=== PATIENT | female | born 1985 | race Caucasian/White ===

== ENCOUNTER 2020-09-02 12:47 | Emergency (ER) | payer MEDICAID, SELFPAY ==
[2020-09-02 14:05] VITALS: BP 136/100; PULSE 104; RESP 18; TEMP 37; O2SAT 97; BMI 26.6
[2020-09-02 15:47] LABS: Appearance Urine HAZY; Color Urine YELLOW; Glucose Urine UA NEG (NEG); Leukocyte Esterase Urine NEG (NEG); Nitrite Urine NEG (NEG); Urine Blood NEG (NEG); Urine Ketones 5 MG/DL (NEG); Urine Protein NEG (NEG-TRACE)
[2020-09-02 16:19] VITALS: BP 148/97; PULSE 88; RESP 18; TEMP 37.2; O2SAT 97
[2020-09-02 16:37] LABS: MANUAL DIFF FLAG NO
[2020-09-02 16:38] LABS: Basophils Percent Auto 0.4 % (0-2); Eosinophils Absolute Auto 0.2 X10*3/uL (0.0-0.4); Eosinophils Percent Auto 3.5 % (0-4); Hematocrit 35.5 % (37-47); Hemoglobin 11.6 g/dl (12.0-16.0); Imm Gran Abs Auto 0.01 X10*3/uL (0.00-0.03); Imm Gran Pct Auto 0.1 % (0.0-0.4); Lymphocytes Absolute Auto 1.3 X10*3/uL (1.2-4.9); Lymphocytes Percent Auto 18.2 % (20-40); Mean Corpuscular HGB Conc 32.7 g/dl (31.0-35.0); Mean Corpuscular Hemoglobin 29.3 pg (27.0-33.0); Mean Corpuscular Volume 89.6 fL (80-98); Mean Platelet Volume 10.6 fL (9.4-12.3); Monocytes Absolute Auto 0.7 X10*3/uL (0.1-1.2); Monocytes Percent Auto 10.2 % (2-11); Neutrophils Absolute Auto 4.7 X10*3/uL (2.0-8.3); Neutrophils Percent Auto 67.6 % (45-73); Platelet Count 167 X10*3/uL (160-400); Red Blood Count 3.96 X10*6/uL (4.20-5.50); Red Cell Distribution Width 14.2 % (11.0-16.0); White Blood Count 6.9 X10*3/uL (4.8-10.8)
--- NOTE | 2020-09-02 16:39 | ED_ITS ---
HPI - Abdominal Pain General Chief Complaint: Abdominal Pain Stated Complaint: abd pain, headache, hot flashes Time Seen by Provider: 09/02/20 14:12 Source: patient Mode of arrival: ambulatory Limitations: no limitations History of Present Illness HPI narrative: 34-year-old female who presents emergency department for evaluation abdominal pain, pelvic pain and a lump in her left axilla. The patient states that she has been experiencing abdominal pain in her mid epigastric area for approximately 6 months. She states that the pain usually comes on 2-3 days before her menses. She states that the pain is a constant, ?hard ball ?that is 10/10. The pain will last 2-3 days and then often resolves when she gets her menstrual period. She states that her menstrual periods are painful but manageable with medications. She states that the pain is associated with nausea, hot and cold sweats. She last had this discomfort 2 days prior but has not had her menstrual period yet. She is also complaining of a suprapubic pain which she states has been there for approximately 1 year. The pain is intermittent and is mild to moderate intensity. She denied any frequency, urgency or dysuria. She states that she has had this pain constantly over the past week. She states that she was having intercourse with her boyfriend when her boyfriend noted ?something funny ?in her vagina. The patient states she then removed a retained tampon that was probably therefore 2 weeks. Patient also states that she has noticed a hard lump her left axilla that has been there for 1 day. The lump is not painful. She has not noted any breast lumps. She states that there is a family history of early breast cancer. Related Data Previous Rx's Medication Instructions Recorded doxycycline hyclate 100 mg PO Q12H 10 Days #20 tab 09/02/20 metronidazole [Flagyl] 500 mg PO BID 10 Days #20 tab 09/02/20 omeprazole 20 mg PO DAILY #30 tab 09/02/20 Allergies Allergy/AdvReac Type Severity Reaction Status Date / Time No Known Allergies Allergy Verified 09/02/20 14:05 [No Known Allergies*] Review of Systems Review of Systems Yes all other systems are reviewed and are negative Physical Exam Vital Signs: Vital Signs: Last Vital Signs Temp 98.9 F 09/02/20 16:19 Pulse 99 09/02/20 17:41 Resp 17 09/02/20 17:41 BP 136/97 H 09/02/20 17:41 Pulse Ox 98 09/02/20 17:41 Body Mass Index 26.6 Const: General: cooperative and healthy appearing Orientation/consciousness: oriented to person and oriented to place Limitations: no limitations HENMT: Head: Yes normal to inspection, Yes normocephalic and Yes atraumatic Ears: external ears normal General nose exam: Normal external nose present Face and sinus: Yes normal facial exam Mouth: Normal oral and palatal mucosa present Throat: Yes posterior oropharynx normal Eyes: Periorbital: periorbital findings normal Eyelids: Yes eyelids normal Conjunctivae: conjunctivae normal Sclerae: sclerae normal Corneas: corneas normal Pupils: Equal, round and reactive pupils present Direct Ophthalmoscopy: normal light reflex Neck: Neck: Yes full ROM, Yes no lymphadenopathy, Yes no meningeal signs, Yes trachea midline and Yes supple Chest: Chest palpation & inspection: normal inspection of the chest and normal palpation of entire chest wall Breast/axilla inspection: normal inspection of the breasts and normal inspection of the axillae Breast/axilla palpation: normal palpation of the breasts and abnormal palpation of the axilla (One, small, hard mass, lateral axilla) Resp: Effort & Inspection: normal respiratory effort and able to speak in complete sentences Auscultation: clear to auscultation bilaterally Cardio: Rate: regular rate Rhythm: regular rhythm Heart sounds: S1 normal heart sound present, S2 normal heart sound present and no murmurs GI: Inspection: Yes normal to inspection Palpation (GI): Soft to palpation, Tenderness to palpation present (GI) in the epigastrum (Moderate tenderness) and suprapubicly (Moderate tenderness), no guarding, not rigid and No hepatosplenomegaly present : General: Yes no CVA tenderness Back/Spine/Pelvis: Back: no CVA tenderness Cervical Spine: normal cervical lordosis Thoracic/Lumbar Spine: thoracic and lumbar spine normal to inspection Skin: Lesions: no lesions Rashes: no rashes Wounds: no wounds Neuro: General: oriented to person, oriented to place and no meningeal signs Cranial nerves: Yes CN's II-XII intact bilaterally and Yes Equal, round and reactive pupils present Cognition (Neuro): normal cognition Motor exam (neuro): 5/5 motor strength present throughout Extrem: General: Yes normal to inspection and Yes full ROM Psych: Appearance: well kempt Mental Status: mental status grossly normal Speech and movement: Normal speech and movement present Affect: normal affect Attitude: cooperative Thought process: Normal thought process present Thought content: Normal thought content present Course Course Course Narrative: 34-year-old female who presents emergency department with 2 separate abdominal complaint and a left axillary mass. Vital signs were normal except for slightly elevated blood pressure of 136/100. The patient's physical examination revealed the mid epigastric and suprapubic pain. Breast exam revealed no palpable lesions on my exam, she does have 1 small hard axillary lesion. Pelvic exam did not reveal a significant cervical discharge however she did have significant cervical motion tenderness and tenderness with palpation over her uterus. I will obtain a laboratory evaluation on the patient. The patient's suprapubic pain pain is consistent with PID and will be treated with ceftriaxone 500 mg IM, doxycycline 100 mg twice a day times 10 days and Flagyl 500 mg twice a day for 10 days. The patient will need to follow-up with her CLINICAL HAEMATOLOGIST and that time she can have a repeat breast exam and axillary exam to determine if she needs an outpatient mammogram. 1845: The patient's laboratory evaluation revealed mild normal septic anemia with an H&H of 11.6 and 35.5. Patient has a slight elevation in her AST and ALT of 7156. Urinalysis and urine test were negative. The patient's epigastric pain is most likely gastritis but endometriosis sees be considered. I will treat her with Prilosec to see if this improves her pain. Patient was advised to follow-up with a juice packaging machines setter within 7-10 days for re-evaluation. MDM - Abdominal Pain Lab Data Result diagrams: 09/02/20 16:31 09/02/20 16:31 Labs: Lab Results 09/02/20 09/02/20 09/02/20 Range/Units 15:27 16:31 16:31 WBC 6.9 (4.8-10.8) X10*3/uL RBC 3.96 L (4.20-5.50) X10*6/uL Hgb 11.6 L (12.0-16.0) g/dl Hct 35.5 L (37-47) % MCV 89.6 (80-98) fL MCH 29.3 (27.0-33.0) pg MCHC 32.7 (31.0-35.0) g/dl RDW 14.2 (11.0-16.0) % Plt Count 167 (160-400) X10*3/uL MPV 10.6 (9.4-12.3) fL Immature Gran % (Auto) 0.1 (0.0-0.4) % Neut % (Auto) 67.6 (45-73) % Lymph % (Auto) 18.2 L (20-40) % [place] % (Auto) 10.2 (2-11) % Eos % (Auto) 3.5 (0-4) % Baso % (Auto) 0.4 (0-2) % Lymph # (Auto) 1.3 (1.2-4.9) X10*3/uL [place] # (Auto) 0.7 (0.1-1.2) X10*3/uL Eos # (Auto) 0.2 (0.0-0.4) X10*3/uL Baso # (Auto) 0.0 (0.0-0.2) X10*3/uL Abs Immat Gran (auto) 0.01 (0.00-0.03) X10*3/uL Absolute Neuts (auto) 4.7 (2.0-8.3) X10*3/uL Absolute Nucleated RBC 0.000 (0.0-0.012) X10*3/uL Nucleated RBC % (auto) 0.0 (0.0-0.2) /100WBC Hold Blue Top SEE NOTE Sodium (135-145) mmol/L Potassium (3.3-5.1) mmol/L Chloride (96-108) mmol/L Carbon Dioxide (22-29) mmol/L Anion Gap (12-20) BUN (9-16) mg/dL Creatinine (0.5-1.4) mg/dL Estim Creat Clear Calc Estimated GFR Random Glucose (60-115) mg/dL Calcium (8.4-10.2) mg/dL Total Bilirubin (0.0-1.0) mg/dL AST (5-31) U/L ALT (0-31) U/L Alkaline Phosphatase (39-117) U/L Total Protein (6.5-8.0) g/dL Albumin (3.5-5.0) g/dL Lipase (8-78) U/L Urine Color YELLOW Urine Appearance HAZY Urine pH 6.0 (5.0-8.0) Ur Specific [place] 1.020 (1.005-1.025) Urine Protein NEG (NEG-TRACE) MG/DL Urine Glucose (UA) NEG (NEG) MG/DL Urine Ketones 5 (NEG) MG/DL Urine Blood NEG (NEG) Urine Nitrite NEG (NEG) Ur Leukocyte Esterase NEG (NEG) Urine Test (NEGATIVE) 09/02/20 09/02/20 09/02/20 Range/Units 16:31 16:31 16:54 WBC (4.8-10.8) X10*3/uL RBC (4.20-5.50) X10*6/uL Hgb (12.0-16.0) g/dl Hct (37-47) % MCV (80-98) fL MCH (27.0-33.0) pg MCHC (31.0-35.0) g/dl RDW (11.0-16.0) % Plt Count (160-400) X10*3/uL MPV (9.4-12.3) fL Immature Gran % (Auto) (0.0-0.4) % Neut % (Auto) (45-73) % Lymph % (Auto) (20-40) % [place] % (Auto) (2-11) % Eos % (Auto) (0-4) % Baso % (Auto) (0-2) % Lymph # (Auto) (1.2-4.9) X10*3/uL [place] # (Auto) (0.1-1.2) X10*3/uL Eos # (Auto) (0.0-0.4) X10*3/uL Baso # (Auto) (0.0-0.2) X10*3/uL Abs Immat Gran (auto) (0.00-0.03) X10*3/uL Absolute Neuts (auto) (2.0-8.3) X10*3/uL Absolute Nucleated RBC (0.0-0.012) X10*3/uL Nucleated RBC % (auto) (0.0-0.2) /100WBC Hold Blue Top Sodium 139 (135-145) mmol/L Potassium 4.3 (3.3-5.1) mmol/L Chloride 102 (96-108) mmol/L Carbon Dioxide 27 (22-29) mmol/L Anion Gap 14 (12-20) BUN 5 L (9-16) mg/dL Creatinine 0.66 (0.5-1.4) mg/dL Estim Creat Clear Calc 130.3 Estimated GFR > 60 Random Glucose 97 (60-115) mg/dL Calcium 9.6 (8.4-10.2) mg/dL Total Bilirubin 0.4 (0.0-1.0) mg/dL AST 71 H (5-31) U/L ALT 56 H (0-31) U/L Alkaline Phosphatase 59 (39-117) U/L Total Protein 7.7 (6.5-8.0) g/dL Albumin 4.3 (3.5-5.0) g/dL Lipase 83 H (8-78) U/L Urine Color Urine Appearance Urine pH (5.0-8.0) Ur Specific [place] (1.005-1.025) Urine Protein (NEG-TRACE) MG/DL Urine Glucose (UA) (NEG) MG/DL Urine Ketones (NEG) MG/DL Urine Blood (NEG) Urine Nitrite (NEG) Ur Leukocyte Esterase (NEG) Urine Test NEGATIVE (NEGATIVE) Discharge Plan Discharge Clinical Impression: Acute pelvic inflammatory disease, Mass of left axilla Gastritis Qualifiers: Gastritis type: unspecified gastritis Chronicity: acute Gastritis bleeding: without bleeding Qualified Code(s): K29.00 - Acute gastritis without bleeding Patient Disposition: Home, Self-Care Instructions: Endometriosis (ED), Pelvic Inflammatory Disease (ED), Gastritis (ED) Additional Instructions: At this time, I believe that the lower abdominal pain that you are experiencing is caused by pelvic inflammatory disease. You were tested for gonorrhea, chlamydia, bacterial vaginosis and Trichomonas. You will need to follow-up with your juice packaging machines setter to get these test results. Your being treated for PID which would treat all of the above infections as well. You received ceftriaxone 500 mg IM. Take doxycycline 100 mg twice a day for 10 days. Take Flagyl (metronidazole) 500 mg twice a day for 10 days. At this time, I believe that the pain in her upper abdomen is caused by gastritis. Take Prilosec 20 mg, once a day for 30 days to treat gastritis. Since the pain in her upper abdomen is related to your menstrual periods, it is possible that you have endometriosis. You should discuss this with your juice packaging machines setter. Also, you have a very small mass in your left arm, you should discuss this with your juice packaging machines setter to see if her juice packaging machines setter thinks that you need a mammogram to be evaluated for breast cancer. Follow-up with your juice packaging machines setter in 7-10 days Please return to the emergency department if your symptoms get worse or if you develop any symptoms that are concerning to you. Prescriptions: New metronidazole [Flagyl] 500 mg tablet 500 mg PO BID 10 Days Qty: 20 RF: 0 doxycycline hyclate 100 mg tablet 100 mg PO Q12H 10 Days Qty: 20 RF: 0 omeprazole 20 mg tablet,delayed release (DR/EC) 20 mg PO DAILY Qty: 30 RF: 0 PMFSH Past Medical History PMFSH Narrative: Past medical history: Patient has a history of eczema. Past surgical history: Patient had a cholecystectomy in 2003. Social history: Patient states that she does smoke cigarettes occasionally but she does vape on a regular basis. She occasionally drinks alcohol, she last drank 2 beers 3 days prior. She states she smokes marijuana 2 to 3 times a week to help with her appetite. Social History Social History Alcohol intake: current Alcohol intake frequency: a few times a month Patient Tobacco Use Status: Current everyday Tobacco user Use of substances other than those prescribed or required for medical reasons: No Advance Directives: No Advance Directives Information Provided: Yes
--- NOTE | 2020-09-02 16:52 | PC.NURSE ---
THIS PCT SET UP AND ASSIST DR CHIN WITH PATIENT PELVIC EXAM AND BREAST EXAM .
[2020-09-02 17:09] LABS: Alanine Aminotransferase 56 U/L (0-31); Albumin Level 4.3 g/dL (3.5-5.0); Alkaline Phosphatase 59 U/L (39-117); Anion Gap 14 (12-20); Aspartate Amino Transferase 71 U/L (5-31); Bilirubin Total 0.4 mg/dL (0.0-1.0); Blood Urea Nitrogen 5 mg/dL (9-16); Calcium 9.6 mg/dL (8.4-10.2); Carbon Dioxide 27 mmol/L (22-29); Chloride 102 mmol/L (96-108); Creatinine Clr Calc Pharmacy 130.3; Estimated Glomerular Filt Rate > 60; Glucose Random 97 mg/dL (60-115); Potassium 4.3 mmol/L (3.3-5.1); Sodium 139 mmol/L (135-145); Total Protein 7.7 g/dL (6.5-8.0)
[2020-09-02 17:11] LABS: UPreg QC Valid YES; Urine Pregnancy NEGATIVE (NEGATIVE)
[2020-09-02 17:27] LABS: Lipase 83 U/L (8-78)
[2020-09-02 17:41] VITALS: BP 136/97; PULSE 99; RESP 17; O2SAT 98
[2020-09-02] MEDS: cefTRIAXone sodium 500 MG, Lidocaine HCl 1 % MPF 1 ML IM (18:53)
[2020-09-03 08:41] LABS: BV Int Neg Control Negative (Negative); BV Int Pos Control Positive (Positive)
[2020-09-03 09:02] LABS: CT PCR NOT DETECTED (Not Detect.); NG PCR NOT DETECTED (Not Detect.)
== END 2020-09-02 19:05 | disposition home or self-care (01) ==
PROVIDERS: Emergency Provider Emergency Medicine Emergency Medical Services
DX: N73.0 Acute parametritis and pelvic cellulitis (principal); R22.32 Localized swelling, mass and lump, left upper limb; R10.2 Pelvic and perineal pain; R10.13 Epigastric pain; F17.200 Nicotine dependence, unspecified, uncomplicated; Z71.6 Tobacco abuse counseling; Z79.899 Other long term (current) drug therapy
CPT/HCPCS: 36415; 80053; 81003; 81025; 83690; 85025; 87480; 87491; 87510; 87591; 87660; 96372; 99284; J0696

== ENCOUNTER 2020-10-08 09:09 | Emergency (ER) | payer MEDICAID, SELFPAY ==
--- NOTE | ~2020-10-08 | CT_ITS ---
EXAMINATION: CT ABDOMEN AND PELVIS WITH CONTRAST CLINICAL INFORMATION: Lower abdominal pain. Rectal bleeding. COMPARISON: None TECHNIQUE: Multidetector volumetric images were obtained from the superior aspect of the liver through the pubic symphysis following administration 85 mL of Omnipaque 350 intravenous contrast. Sagittal and coronal reformatted images were obtained on the technologist's workstation. Oral contrast: Yes This CT examination was performed using dose optimization techniques as appropriate, variously including the following: *Automated exposure control *Adjustment of mA and/or kV according to patient size (this includes techniques or standardized protocols for targeted exams where dose is matched to indication/reason for exam; i.e. extremities or head) *Use of iterative reconstruction technique DLP: 594 mGy-cm FINDINGS: LUNG BASES: The visualized lung bases are unremarkable. LIVER, GALLBLADDER, AND BILIARY TREE: The liver is low in attenuation suggestive of fatty infiltration. The gallbladder has been removed. There is no biliary duct dilatation. PANCREAS: Unremarkable. SPLEEN: Unremarkable. ADRENAL GLANDS: Unremarkable. KIDNEYS AND URETERS: There are small bilateral nonobstructing renal stones. BLADDER: Not optimally distended. GASTROINTESTINAL TRACT: There is wall thickening of the colon suggestive of pancolitis. There are prominent adjacent vessels or vasa recta. There is also wall thickening of the terminal ileum. No evidence of obstruction, perforation or abscess is seen. The appendix is normal. The stomach is normal. There is trace ascites in the pelvis. ABDOMINAL WALL: No significant hernia is appreciated. LYMPH NODES: Normal. VASCULAR: Unremarkable. PELVIC VISCERA: Unremarkable. OSSEOUS STRUCTURES: Unremarkable. CT/CT abdomen pelvis w con IMPRESSION: Pancolitis and ileitis of the terminal ileum. Prominent vasa recta. Inflammatory bowel disease should be considered. Small bilateral nonobstructing renal stones. Fatty liver.
[2020-10-08 09:19] VITALS: BP 146/88; PULSE 117; RESP 20; TEMP 36.8; O2SAT 100; BMI 25.8
[2020-10-08] MEDS: 0.9 % Sodium Chloride 1,000 ML 999 ML IV (09:43)
[2020-10-08 09:51] LABS: Basophils Absolute Auto 0.1 X10*3/uL (0.0-0.2); Basophils Percent Auto 0.5 % (0-2); Eosinophils Absolute Auto 0.1 X10*3/uL (0.0-0.4); Eosinophils Percent Auto 0.5 % (0-4); Hematocrit 37.7 % (37-47); Hemoglobin 12.5 g/dl (12.0-16.0); Imm Gran Abs Auto 0.04 X10*3/uL (0.00-0.03); Imm Gran Pct Auto 0.4 % (0.0-0.4); Lymphocytes Percent Auto 9.8 % (20-40); MANUAL DIFF FLAG SCAN; Mean Corpuscular HGB Conc 33.2 g/dl (31.0-35.0); Mean Corpuscular Hemoglobin 29.1 pg (27.0-33.0); Mean Corpuscular Volume 87.7 fL (80-98); Mean Platelet Volume 10.6 fL (9.4-12.3); Monocytes Percent Auto 18.9 % (2-11); Neutrophils Absolute Auto 7.2 X10*3/uL (2.0-8.3); Neutrophils Percent Auto 69.9 % (45-73); Platelet Count 318 X10*3/uL (160-400); Red Cell Distribution Width 13.5 % (11.0-16.0); SCAN SMEAR FLAG 1; White Blood Count 10.3 X10*3/uL (4.8-10.8)
[2020-10-08] MEDS: ondansetron HCL 4 MG/2 ML VIAL IVPUSH (09:51)
[2020-10-08] MEDS: Famotidine/PF 20 MG/2 ML VIAL IVPUSH (09:51)
[2020-10-08 09:52] LABS: OBS Int Ctl Valid YES; OBS1 POSITIVE (NEGATIVE)
--- NOTE | 2020-10-08 09:57 | ED.ABDPAIN ---
HPI - Abdominal Pain General Chief Complaint: Abdominal Pain <JANUARY Luther Last Filed: 10/08/20 14:58> Stated Complaint: abd pain <JANUARY Luther Last Filed: 10/08/20 14:58> Time Seen by Provider: 10/08/20 09:19 <JANUARY Luther Last Filed: 10/08/20 14:58> Source: patient <JANUARY Luther Last Filed: 10/08/20 14:58> Mode of arrival: ambulatory <JANUARY Luther Last Filed: 10/08/20 14:58> Limitations: no limitations <JANUARY Luther Last Filed: 10/08/20 14:58> History of Present Illness HPI narrative: Patient presents to ED for lower abdominal pain and rectal bleeding for the past 2 days. Patient states Aurea is brown with bright red blood and sometimes blood clot. Patient states also nausea and vomiting. Patient states no fever or chills. Patient denies any recent trauma to the abdomen. Patient denies any history of any GI issues. Patient states he is having once before in the past but she never followed up. <JANUARY Luther Last Filed: 10/08/20 14:58> Related Data Home Medications: Previous Rx's Medication Instructions Recorded omeprazole 20 mg tablet,delayed 20 mg PO DAILY #30 tab 09/02/20 release ondansetron HCl 4 mg tablet 4 mg PO Q6H PRN 3 Days #12 tab 10/08/20 (Zofran) bisacodyl 5 mg tablet,delayed 10 mg PO ONCE 1 Days #2 tab 10/21/20 release (Dulcolax (bisacodyl)) pantoprazole 20 mg tablet,delayed 20 mg PO QAM #30 tab 10/21/20 release polyethylene glycol 3350 17 238 g PO ONCE 1 Days #238 g 10/21/20 gram/dose oral powder (Miralax) doxycycline monohydrate 100 mg 100 mg PO BID #10 tab 10/30/20 tablet <JANUARY Luther Last Filed: 10/08/20 14:58> Allergies/Adverse Reactions: Allergies Allergy/AdvReac Type Severity Reaction Status Date / Time No Known Allergies Allergy Verified 10/30/20 17:23 [No Known Allergies*] <JANUARY Luther Last Filed: 10/08/20 14:58> Review of Systems Review of Systems Yes all other systems are reviewed and are negative <JANUARY Luther Last Filed: 10/08/20 14:58> Constitutional: Reports as per HPI and Reports no additional constitutional complaints <JANUARY Luther Last Filed: 10/08/20 14:58> Eyes: Reports as per HPI and Reports no additional eye complaints <JANUARY Luther Last Filed: 10/08/20 14:58> Reports system reviewed and no additional complaints, except as documented and Reports as per HPI <JANUARY Luther Last Filed: 10/08/20 14:58> Cardiovascular: Reports as per HPI and Reports no additional cardiovascular complaints <JANUARY Luther Last Filed: 10/08/20 14:58> Respiratory: Reports as per HPI and Reports no additional respiratory complaints <JANUARY Luther Last Filed: 10/08/20 14:58> Gastrointestinal: Reports as per HPI, Reports no additional gastrointestinal complaints, Reports abdominal pain (lower abdominal pain), Reports hematochezia and Reports GI cramping <JANUARY Luther Last Filed: 10/08/20 14:58> Musculoskeletal: Reports no additional musculoskeletal complaints and Reports as per HPI <JANUARY Luther Last Filed: 10/08/20 14:58> Reports system reviewed and no additional complaints, except as documented and Reports as per HPI <JANUARY Luther Last Filed: 10/08/20 14:58> Psychiatric: Reports no additional psychiatric complaints and Reports as per HPI <JANUARY Luther Last Filed: 10/08/20 14:58> Physical Exam Vital Signs: Vital Signs: Last Vital Signs Temp 98.3 F 10/08/20 09:19 Pulse 99 10/08/20 15:12 Resp 16 10/08/20 15:12 BP 131/86 10/08/20 15:12 Pulse Ox 95 10/08/20 12:15 Body Mass Index 25.8 <JANUARY Luther Last Filed: 10/08/20 14:58> Vital Signs: Last Vital Signs Temp 98.3 F 10/08/20 09:19 Pulse 99 10/08/20 15:12 Resp 16 10/08/20 15:12 BP 131/86 10/08/20 15:12 Pulse Ox 95 10/08/20 12:15 Body Mass Index 25.8 <Zechariah Sanchez MD - Last Filed: 11/10/20 06:38> Const: General: cooperative, healthy appearing, comfortable, no acute distress, well developed, alert, awake and Physically active <JANUARY Luther Last Filed: 10/08/20 14:58> Orientation/consciousness: patient oriented x3 <JANUARY Luther - Last Filed: 10/08/20 14:58> HENMT: Head: Yes normal to inspection, Yes No palpable skull fracture present, Yes normocephalic, Yes atraumatic and No abrasion <JANUARY Luther Last Filed: 10/08/20 14:58> Eyes: General: appearance normal, both eyes and all related structures <JANUARY Luther Last Filed: 10/08/20 14:58> Neck: Neck: Yes normal visual inspection, Yes full ROM, Yes no lymphadenopathy, Yes no meningeal signs, Yes trachea midline, Yes supple and No tender <JANUARY Luther Last Filed: 10/08/20 14:58> Chest: Chest palpation & inspection: normal inspection of the chest and normal palpation of entire chest wall <JANUARY Luther Last Filed: 10/08/20 14:58> Resp: Effort & Inspection: normal respiratory effort and able to speak in complete sentences <JANUARY Luther Last Filed: 10/08/20 14:58> Auscultation: clear to auscultation bilaterally <JANUARY Luther Last Filed: 10/08/20 14:58> Cardio: Jugular venous distension: no JVD <JANUARY Luther Last Filed: 10/08/20 14:58> Heart sounds: S1 normal heart sound present and S2 normal heart sound present <JANUARY Luther Last Filed: 10/08/20 14:58> GI: Other: Rectal exam: positive for tanesha bright red blood. Negative for any black stool. Negative for melena. Stool is brown. Negative for hemorrhoids <JANUARY Luther - Last Filed: 10/08/20 14:58> Inspection: Yes normal to inspection and No abdominal wall ecchymosis <JANUARY Luther Last Filed: 10/08/20 14:58> Palpation (GI): Soft to palpation, not firm, Tenderness to palpation present (GI), no guarding and not rigid <JANUARY Luther Last Filed: 10/08/20 14:58> : General: Yes CVA tenderness and Yes no CVA tenderness <JANUARY Luther Last Filed: 10/08/20 14:58> Back/Spine/Pelvis: Back: no CVA tenderness, CVA tenderness and No back tenderness <JANUARY Luther Last Filed: 10/08/20 14:58> Skin: General skin exam: no rashes or lesions noted and elasticity normal <JANUARY Luther Last Filed: 10/08/20 14:58> Neuro: General: patient oriented x3, no meningeal signs and CN's II-XI intact bilaterally <JANUARY Luther Last Filed: 10/08/20 14:58> Cranial nerves: Yes CN's II-XII intact bilaterally <JANUARY Luther Last Filed: 10/08/20 14:58> Extrem: General: Yes normal to inspection and Yes full ROM <JANUARY Luther Last Filed: 10/08/20 14:58> Psych: Appearance: grossly normal, well kempt and not disheveled <JANUARY Luther Last Filed: 10/08/20 14:58> Course Course Course Narrative: patient will have labs drawn, stool guaiac, and most likely imaging. <JANUARY Luther Last Filed: 10/08/20 14:58> I have reviewed the chart <Zechariah Sanchez MD - Last Filed: 11/10/20 06:38> Reevaluation(s) Reevaluation #1: patient negative for elevated blood cell count. Patient vital signs stable. Patient will be sent for CT scan to rule out colitis. UA shows UTI. Stool guaiac positive. patient is not anemic <JANUARY Luther Last Filed: 10/08/20 14:58> Time: 21:41 <JANUARY Luther - Last Filed: 10/08/20 14:58> Reevaluation #2: CT scan shows colitis. Patient will be discharged with antibiotics. Patient informed to follow up Gastroenterology for possible inflammatory bowel disease <JANUARY Luther - Last Filed: 10/08/20 14:58> Time: 14:29 <JANUARY Luther - Last Filed: 10/08/20 14:58> MDM - Abdominal Pain MDM Narrative Medical decision making narrative: colitis <JANUARY Luther - Last Filed: 10/08/20 14:58> Lab Data Result diagrams: : 10/08/20 09:41 10/08/20 09:41 <JANUARY Luther Last Filed: 10/08/20 14:58> Labs: Lab Results 10/08/20 10/08/20 10/08/20 Range/Units 09:34 09:41 09:41 WBC 10.3 (4.8-10.8) X10*3/uL RBC 4.30 (4.20-5.50) X10*6/uL Hgb 12.5 (12.0-16.0) g/dl Hct 37.7 (37-47) % MCV 87.7 (80-98) fL MCH 29.1 (27.0-33.0) pg MCHC 33.2 (31.0-35.0) g/dl RDW 13.5 (11.0-16.0) % Plt Count 318 D (160-400) X10*3/uL MPV 10.6 (9.4-12.3) fL Immature Gran % (Auto) 0.4 (0.0-0.4) % Neut % (Auto) 69.9 (45-73) % Lymph % (Auto) 9.8 L (20-40) % [place] % (Auto) 18.9 H (2-11) % Eos % (Auto) 0.5 (0-4) % Baso % (Auto) 0.5 (0-2) % Lymph # (Auto) 1.0 L (1.2-4.9) X10*3/uL [place] # (Auto) 2.0 H (0.1-1.2) X10*3/uL Eos # (Auto) 0.1 (0.0-0.4) X10*3/uL Baso # (Auto) 0.1 (0.0-0.2) X10*3/uL Abs Immat Gran (auto) 0.04 H (0.00-0.03) X10*3/uL Absolute Neuts (auto) 7.2 (2.0-8.3) X10*3/uL Absolute Nucleated RBC 0.000 (0.0-0.012) X10*3/uL Nucleated RBC % (auto) 0.0 (0.0-0.2) /100WBC Smear Tech's Comments VERIFIED PT 13.3 H (9.9-13.0) SEC INR 1.2 H (0.9-1.1) APTT 29.6 (24.1-38.0) SEC Sodium (135-145) mmol/L Potassium (3.3-5.1) mmol/L Chloride (96-108) mmol/L Carbon Dioxide (22-29) mmol/L Anion Gap (12-20) BUN (9-16) mg/dL Creatinine (0.5-1.4) mg/dL Estim Creat Clear Calc Estimated GFR Random Glucose (60-115) mg/dL Calcium (8.4-10.2) mg/dL Total Bilirubin (0.0-1.0) mg/dL Direct Bilirubin (0.0-0.5) mg/dL AST (5-31) U/L ALT (0-31) U/L Alkaline Phosphatase (39-117) U/L Total Protein (6.5-8.0) g/dL Albumin (3.5-5.0) g/dL Lipase (8-78) U/L Beta HCG, Quant mIU/mL Urine Color Urine Appearance Urine pH (5.0-8.0) Ur Specific [place] (1.005-1.025) Urine Protein (NEG-TRACE) MG/DL Urine Glucose (UA) (NEG) MG/DL Urine Ketones (NEG) MG/DL Urine Blood (NEG) Urine Nitrite (NEG) Ur Leukocyte Esterase (NEG) Urine RBC (0) /HPF Urine WBC (0-4) /HPF Ur Squamous Epith Cells /LPF Urine Bacteria /LPF Urine Mucus /LPF Stool Occult Blood POSITIVE (NEGATIVE) Blood Type Antibody Screen 10/08/20 10/08/20 10/08/20 Range/Units 09:41 10:31 10:54 WBC (4.8-10.8) X10*3/uL RBC (4.20-5.50) X10*6/uL Hgb (12.0-16.0) g/dl Hct (37-47) % MCV (80-98) fL MCH (27.0-33.0) pg MCHC (31.0-35.0) g/dl RDW (11.0-16.0) % Plt Count (160-400) X10*3/uL MPV (9.4-12.3) fL Immature Gran % (Auto) (0.0-0.4) % Neut % (Auto) (45-73) % Lymph % (Auto) (20-40) % [place] % (Auto) (2-11) % Eos % (Auto) (0-4) % Baso % (Auto) (0-2) % Lymph # (Auto) (1.2-4.9) X10*3/uL [place] # (Auto) (0.1-1.2) X10*3/uL Eos # (Auto) (0.0-0.4) X10*3/uL Baso # (Auto) (0.0-0.2) X10*3/uL Abs Immat Gran (auto) (0.00-0.03) X10*3/uL Absolute Neuts (auto) (2.0-8.3) X10*3/uL Absolute Nucleated RBC (0.0-0.012) X10*3/uL Nucleated RBC % (auto) (0.0-0.2) /100WBC Smear Tech's Comments PT (9.9-13.0) SEC INR (0.9-1.1) APTT (24.1-38.0) SEC Sodium 138 (135-145) mmol/L Potassium 3.3 D (3.3-5.1) mmol/L Chloride 93 L (96-108) mmol/L Carbon Dioxide 30 H (22-29) mmol/L Anion Gap 18 (12-20) BUN 5 L (9-16) mg/dL Creatinine 0.79 (0.5-1.4) mg/dL Estim Creat Clear Calc 107.4 Estimated GFR > 60 Random Glucose 132 H D (60-115) mg/dL Calcium 10.0 (8.4-10.2) mg/dL Total Bilirubin 0.6 (0.0-1.0) mg/dL Direct Bilirubin 0.2 (0.0-0.5) mg/dL AST 31 D (5-31) U/L ALT 26 (0-31) U/L Alkaline Phosphatase 69 (39-117) U/L Total Protein 7.6 (6.5-8.0) g/dL Albumin 3.9 (3.5-5.0) g/dL Lipase 140 H (8-78) U/L Beta HCG, Quant < 2 mIU/mL Urine Color YELLOW Urine Appearance CLOUDY Urine pH 6.5 (5.0-8.0) Ur Specific [place] 1.020 (1.005-1.025) Urine Protein 2+ H (NEG-TRACE) MG/DL Urine Glucose (UA) NEG (NEG) MG/DL Urine Ketones >=80 (NEG) MG/DL Urine Blood NEG (NEG) Urine Nitrite POS H (NEG) Ur Leukocyte Esterase TRACE H (NEG) Urine RBC 0-2 (0) /HPF Urine WBC 1-4 (0-4) /HPF Ur Squamous Epith Cells 2+ /LPF Urine Bacteria 1+ /LPF Urine Mucus 2+ /LPF Stool Occult Blood (NEGATIVE) Blood Type O Positive Antibody Screen NEGATIVE <JANUARY Luther - Last Filed: 10/08/20 14:58> Lab Results 10/08/20 10/08/20 10/08/20 Range/Units 09:34 09:41 09:41 WBC 10.3 (4.8-10.8) X10*3/uL RBC 4.30 (4.20-5.50) X10*6/uL Hgb 12.5 (12.0-16.0) g/dl Hct 37.7 (37-47) % MCV 87.7 (80-98) fL MCH 29.1 (27.0-33.0) pg MCHC 33.2 (31.0-35.0) g/dl RDW 13.5 (11.0-16.0) % Plt Count 318 D (160-400) X10*3/uL MPV 10.6 (9.4-12.3) fL Immature Gran % (Auto) 0.4 (0.0-0.4) % Neut % (Auto) 69.9 (45-73) % Lymph % (Auto) 9.8 L (20-40) % [place] % (Auto) 18.9 H (2-11) % Eos % (Auto) 0.5 (0-4) % Baso % (Auto) 0.5 (0-2) % Lymph # (Auto) 1.0 L (1.2-4.9) X10*3/uL [place] # (Auto) 2.0 H (0.1-1.2) X10*3/uL Eos # (Auto) 0.1 (0.0-0.4) X10*3/uL Baso # (Auto) 0.1 (0.0-0.2) X10*3/uL Abs Immat Gran (auto) 0.04 H (0.00-0.03) X10*3/uL Absolute Neuts (auto) 7.2 (2.0-8.3) X10*3/uL Absolute Nucleated RBC 0.000 (0.0-0.012) X10*3/uL Nucleated RBC % (auto) 0.0 (0.0-0.2) /100WBC Smear Tech's Comments VERIFIED PT 13.3 H (9.9-13.0) SEC INR 1.2 H (0.9-1.1) APTT 29.6 (24.1-38.0) SEC Sodium (135-145) mmol/L Potassium (3.3-5.1) mmol/L Chloride (96-108) mmol/L Carbon Dioxide (22-29) mmol/L Anion Gap (12-20) BUN (9-16) mg/dL Creatinine (0.5-1.4) mg/dL Estim Creat Clear Calc Estimated GFR Random Glucose (60-115) mg/dL Calcium (8.4-10.2) mg/dL Total Bilirubin (0.0-1.0) mg/dL Direct Bilirubin (0.0-0.5) mg/dL AST (5-31) U/L ALT (0-31) U/L Alkaline Phosphatase (39-117) U/L Total Protein (6.5-8.0) g/dL Albumin (3.5-5.0) g/dL Lipase (8-78) U/L Beta HCG, Quant mIU/mL Urine Color Urine Appearance Urine pH (5.0-8.0) Ur Specific [place] (1.005-1.025) Urine Protein (NEG-TRACE) MG/DL Urine Glucose (UA) (NEG) MG/DL Urine Ketones (NEG) MG/DL Urine Blood (NEG) Urine Nitrite (NEG) Ur Leukocyte Esterase (NEG) Urine RBC (0) /HPF Urine WBC (0-4) /HPF Ur Squamous Epith Cells /LPF Urine Bacteria /LPF Urine Mucus /LPF Stool Occult Blood POSITIVE (NEGATIVE) Blood Type Antibody Screen 10/08/20 10/08/20 10/08/20 Range/Units 09:41 10:31 10:54 WBC (4.8-10.8) X10*3/uL RBC (4.20-5.50) X10*6/uL Hgb (12.0-16.0) g/dl Hct (37-47) % MCV (80-98) fL MCH (27.0-33.0) pg MCHC (31.0-35.0) g/dl RDW (11.0-16.0) % Plt Count (160-400) X10*3/uL MPV (9.4-12.3) fL Immature Gran % (Auto) (0.0-0.4) % Neut % (Auto) (45-73) % Lymph % (Auto) (20-40) % [place] % (Auto) (2-11) % Eos % (Auto) (0-4) % Baso % (Auto) (0-2) % Lymph # (Auto) (1.2-4.9) X10*3/uL [place] # (Auto) (0.1-1.2) X10*3/uL Eos # (Auto) (0.0-0.4) X10*3/uL Baso # (Auto) (0.0-0.2) X10*3/uL Abs Immat Gran (auto) (0.00-0.03) X10*3/uL Absolute Neuts (auto) (2.0-8.3) X10*3/uL Absolute Nucleated RBC (0.0-0.012) X10*3/uL Nucleated RBC % (auto) (0.0-0.2) /100WBC Smear Tech's Comments PT (9.9-13.0) SEC INR (0.9-1.1) APTT (24.1-38.0) SEC Sodium 138 (135-145) mmol/L Potassium 3.3 D (3.3-5.1) mmol/L Chloride 93 L (96-108) mmol/L Carbon Dioxide 30 H (22-29) mmol/L Anion Gap 18 (12-20) BUN 5 L (9-16) mg/dL Creatinine 0.79 (0.5-1.4) mg/dL Estim Creat Clear Calc 107.4 Estimated GFR > 60 Random Glucose 132 H D (60-115) mg/dL Calcium 10.0 (8.4-10.2) mg/dL Total Bilirubin 0.6 (0.0-1.0) mg/dL Direct Bilirubin 0.2 (0.0-0.5) mg/dL AST 31 D (5-31) U/L ALT 26 (0-31) U/L Alkaline Phosphatase 69 (39-117) U/L Total Protein 7.6 (6.5-8.0) g/dL Albumin 3.9 (3.5-5.0) g/dL Lipase 140 H (8-78) U/L Beta HCG, Quant < 2 mIU/mL Urine Color YELLOW Urine Appearance CLOUDY Urine pH 6.5 (5.0-8.0) Ur Specific [place] 1.020 (1.005-1.025) Urine Protein 2+ H (NEG-TRACE) MG/DL Urine Glucose (UA) NEG (NEG) MG/DL Urine Ketones >=80 (NEG) MG/DL Urine Blood NEG (NEG) Urine Nitrite POS H (NEG) Ur Leukocyte Esterase TRACE H (NEG) Urine RBC 0-2 (0) /HPF Urine WBC 1-4 (0-4) /HPF Ur Squamous Epith Cells 2+ /LPF Urine Bacteria 1+ /LPF Urine Mucus 2+ /LPF Stool Occult Blood (NEGATIVE) Blood Type O Positive Antibody Screen NEGATIVE <Zechariah Sanchez MD - Last Filed: 11/10/20 06:38> Discharge Plan Discharge Clinical Impression: Colitis, UTI (urinary tract infection) <JANUARY Luther - Last Filed: 10/08/20 14:58> Patient Disposition: Home, Self-Care <JANUARY Luther - Last Filed: 10/08/20 14:58> Instructions: Urinary Tract Infection in Women (ED), Colitis (ED) <JANUARY Luther - Last Filed: 10/08/20 14:58> Additional Instructions: Your CT scan shows colitis possibly inflammatory bowel disease. Your PCP will have to refer you to to a biofuels processing technician for colonoscopy to differentiate between Crohn's or colitis. You will need antibiotics for the colitis any a urinary tract infection. Please return to the ED immediately for worsening abdominal pain, fever, chills, nausea, vomiting, diarrhea, blood in stool, or any other concerning symptoms. <JANUARY Luther - Last Filed: 10/08/20 14:58> Prescriptions: New ondansetron HCl [Zofran] 4 mg tablet 4 mg PO Q6H PRN (Reason: nausea) 3 Days Qty: 12 RF: 0 No Action omeprazole 20 mg tablet,delayed release (DR/EC) 20 mg PO DAILY Qty: 30 RF: 0 doxycycline monohydrate 100 mg tablet 100 mg PO BID Qty: 10 RF: 0 pantoprazole 20 mg tablet,delayed release (DR/EC) 20 mg PO QAM Qty: 30 RF: 6 bisacodyl [Dulcolax (bisacodyl)] 5 mg tablet,delayed release (DR/EC) 10 mg PO ONCE 1 Days Qty: 2 RF: 0 polyethylene glycol 3350 [Miralax] 17 gram/dose powder 238 g PO ONCE 1 Days Qty: 238 RF: 0 <JANUARY Luther - Last Filed: 10/08/20 14:58> Stand Alone Forms: Work/School Release <JANUARY Luther Last Filed: 10/08/20 14:58> Interventions: ED Discharge Assessment Last Done: 10/08/20 15:12 <JANUARY Luther Last Filed: 10/08/20 14:58> Discharge Date/Time: 10/08/20 15:12 <JANUARY Luther Last Filed: 10/08/20 14:58> Print Language: [place]guill[place] <JANUARY Luther - Last Filed: 10/08/20 14:58> [facility] Past Medical History Medical History: Medical History FH: cholecystectomy <JANUARY Luther - Last Filed: 10/08/20 14:58> Family History Family History: Family History (Updated 10/28/20 @ 06:13 by Zenaida Lux PA-C) Unknown No problems noted. <JANUARY Luther - Last Filed: 10/08/20 14:58> Social History Social History: Social History (Updated 10/21/20 @ 14:10 by Zenaida Lux PA-C) Household Members Other:: 3 kids Alcohol intake: current Alcohol intake frequency: holidays/special occasions only Patient Tobacco Use Status: Current everyday Tobacco user <JANUARY Luther Last Filed: 10/08/20 14:58>
[2020-10-08 09:58] LABS: INTERNATIONAL NORM RATIO 1.2 (0.9-1.1); Prothrombin Time 13.3 SEC (9.9-13.0)
[2020-10-08 10:01] LABS: Partial Thromboplastin Time 29.6 SEC (24.1-38.0)
[2020-10-08 10:21] VITALS: BP 114/60; PULSE 91; RESP 20; O2SAT 100
[2020-10-08 10:23] LABS: HCG Quantitative < 2 mIU/mL
[2020-10-08 10:27] LABS: Alanine Aminotransferase 26 U/L (0-31); Albumin Level 3.9 g/dL (3.5-5.0); Alkaline Phosphatase 69 U/L (39-117); Anion Gap 18 (12-20); Aspartate Amino Transferase 31 U/L (5-31); Bilirubin Direct 0.2 mg/dL (0.0-0.5); Bilirubin Total 0.6 mg/dL (0.0-1.0); Blood Urea Nitrogen 5 mg/dL (9-16); Carbon Dioxide 30 mmol/L (22-29); Chloride 93 mmol/L (96-108); Creatinine Clr Calc Pharmacy 107.4; Estimated Glomerular Filt Rate > 60; Glucose Random 132 mg/dL (60-115); Potassium 3.3 mmol/L (3.3-5.1); Sodium 138 mmol/L (135-145); Total Protein 7.6 g/dL (6.5-8.0)
[2020-10-08 10:28] LABS: SLIDE REVIEW VERIFIED
[2020-10-08 10:41] LABS: Lipase 140 U/L (8-78)
--- NOTE | 2020-10-08 10:56 | PC.NURSE ---
Patient complaining of increased abdominal pain. Pt is ambulatory to the bathroom and back without assistance.
[2020-10-08 11:08] LABS: Glucose Urine UA NEG (NEG); Leukocyte Esterase Urine TRACE (NEG); Nitrite Urine POS (NEG); PH 6.5 (5.0-8.0); UACC Culture Trigger YES; Urine Blood NEG (NEG); Urine Ketones >=80 MG/DL (NEG); Urine Protein 2+ MG/DL (NEG-TRACE)
[2020-10-08 11:13] LABS: Appearance Urine CLOUDY; Color Urine YELLOW
[2020-10-08 11:20] VITALS: BP 121/69; PULSE 104; RESP 18; O2SAT 97
[2020-10-08] MEDS: Morphine Sulfate 4 MG/ML CARTRIDGE IVPUSH (11:20)
[2020-10-08 11:23] LABS: Bacteria Urine 1+ /LPF; Mucus Urine 2+ /LPF; RBC Urine 0-2 /HPF (0); Squamous Epithelial Cell Urine 2+ /LPF
--- NOTE | 2020-10-08 12:10 | PC.NURSE ---
Patient states she feels more relaxed and rates pain in her abdomen a 5/10.
[2020-10-08 12:15] VITALS: BP 125/87; PULSE 93; RESP 14; O2SAT 95
--- NOTE | 2020-10-08 13:21 | PC.NURSE ---
Patient is ambulatory to ct in no distress
[2020-10-08] MEDS: iohexoL 350 MG/ML 100 ML INFUS..BTL IV (13:33)
[2020-10-08] MEDS: Morphine Sulfate 2 MG/ML CARTRIDGE IVPUSH (15:04)
[2020-10-08 15:12] VITALS: BP 131/86; PULSE 99; RESP 16
== END 2020-10-08 15:12 | disposition home or self-care (01) ==
PROVIDERS: Physician Assistant; Emergency Provider Emergency Medicine
DX: K52.9 Noninfective gastroenteritis and colitis, unspecified (principal); N39.0 Urinary tract infection, site not specified; R11.2 Nausea with vomiting, unspecified
CPT/HCPCS: 36415; 74177; 80053; 80076; 81001; 81003; 82248; 82272; 83690; 84702; 85025; 85610; 85730; 86850; 86900; 86901; 87086; 96361; 96374; 96375; 96376; 99285; J2270; J2405; Q9967

== ENCOUNTER → 2020-10-21 13:15 | Outpatient (BNVA) | payer MEDICAID, SELFPAY | PROVIDERS: PCP Family Medicine; Referring Provider Family Medicine; Visit Provider Physician Assistant | DX: R10.9 Unspecified abdominal pain (principal); K52.9 Noninfective gastroenteritis and colitis, unspecified | CPT/HCPCS: 99202 ==

== ENCOUNTER 2020-10-30 17:08 | Emergency (ER) | payer MEDICAID, SELFPAY ==
[2020-10-30 17:23] VITALS: BP 135/75; PULSE 107; RESP 18; TEMP 37.1; O2SAT 100; BMI 26.7
--- NOTE | 2020-10-30 17:36 | ED_ITS ---
HPI - Skin/Abscess/Foreign Bdy General Chief complaint: Skin/Abscess/Foreign Body Stated complaint: abcess Time Seen by Provider: 10/30/20 17:19 Source: patient Mode of arrival: ambulatory Limitations: no limitations History of Present Illness HPI narrative: 34 yo female here with complaints of multiple abscesses. Patient tells me she shaved her underarms and bikini area 2 days ago and then noticed bumps . Using warm compresses and one on her buttocks started draining. No fevers, chills. Related Data Previous Rx's Medication Instructions Recorded omeprazole 20 mg tablet,delayed 20 mg PO DAILY #30 tab 09/02/20 release ondansetron HCl 4 mg tablet 4 mg PO Q6H PRN 3 Days #12 tab 10/08/20 (Zofran) bisacodyl 5 mg tablet,delayed 10 mg PO ONCE 1 Days #2 tab 10/21/20 release (Dulcolax (bisacodyl)) pantoprazole 20 mg tablet,delayed 20 mg PO QAM #30 tab 10/21/20 release polyethylene glycol 3350 17 238 g PO ONCE 1 Days #238 g 10/21/20 gram/dose oral powder (Miralax) doxycycline monohydrate 100 mg 100 mg PO BID #10 tab 10/30/20 tablet Allergies Allergy/AdvReac Type Severity Reaction Status Date / Time No Known Allergies Allergy Verified 10/30/20 17:23 [No Known Allergies*] Review of Systems Review of Systems: Yes all other systems are reviewed and are negative Constitutional: Constitutional: Reports no additional constitutional complaints, Denies body ache(s), Denies chills, Denies fever(s), Denies headache(s) and Denies weakness Eyes: Eyes: Reports no additional eye complaints and Denies change in vision ENT: Reports system reviewed and no additional complaints, except as documented, Denies dizziness, Denies headache(s), Denies nasal congestion, Den ies nasal discharge and Denies neck pain Cardiovascular: Cardiovascular: Reports no additional cardiovascular complaints, Denies chest pain, Denies leg edema and Denies dyspnea Respiratory: Respiratory: Reports no additional respiratory complaints, Denies cough and Denies dyspnea Gastrointestinal: Gastrointestinal: Reports no additional gastrointestinal complaints, Denies abdominal pain, Denies diarrhea, Denies nausea and Denies vomiting Genitourinary: Genitourinary: Reports no additional female genitourinary complaints and Denies urinary incontinence Musculoskeletal: Musculoskeletal: Reports no additional musculoskeletal complaints, Denies back pain, Denies arthralgias, Denies joint swelling, Denies neck pain, Denies numbness and Denies tingling Integumentary/Breasts: Skin/Breast: Reports system reviewed and no additional complaints, except as docu, Reports furuncle, Reports swelling, Reports erythema and Denies rash Neurologic: Reports system reviewed and no additional complaints, except as documented, Denies Abnormal speech present, Denies dizziness, Denies headache(s), Denies numbness, Denies tingling and Denies weakness PMFSH Past Medical History Attestation statement: The following information was validated with the patient. Source: old records reviewed and nursing notes reviewed Medical History FH: cholecystectomy Family History Family History (Updated 10/28/20 @ 06:13 by Zenaida Lux PA-C) Unknown No problems noted. Social History Social History (Updated 10/21/20 @ 14:10 by Zenaida Lux PA-C) Household Members Other:: 3 kids Alcohol intake: current Alcohol intake frequency: holidays/special occasions only Patient Tobacco Use Status: Current everyday Tobacco user Advance Directives: No Advance Directives Information Provided: No Physical Exam Vital Signs: Vital Signs: Last Vital Signs Temp 98.7 F 10/30/20 17:23 Pulse 107 H 10/30/20 17:23 Resp 18 10/30/20 17:23 BP 135/75 10/30/20 17:23 Pulse Ox 100 10/30/20 17:23 Body Mass Index 26.7 Const: General: cooperative, healthy appearing, comfortable and no acute distress Orientation/consciousness: patient oriented x3 Limitations: no limitations HENMT: Head: Yes normal to inspection Ears: hearing grossly normal bilaterally General nose exam: Normal external nose present Face and sinus: Yes normal facial exam Mouth: Normal oral and palatal mucosa present Throat: Yes posterior oropharynx normal Eyes: General: appearance normal, both eyes and all related structures Pupils: Equal, round and reactive pupils present Neck: Neck: Yes normal visual inspection Chest: Chest palpation & inspection: normal inspection of the chest Resp: Effort & Inspection: normal respiratory effort Auscultation: clear to auscultation bilaterally Cardio: Rate: regular rate Rhythm: regular rhythm Peripheral pulses: Per ipheral pulses 2+ throughout GI: Inspection: Yes normal to inspection Palpation (GI): Soft to palpation and nontender Auscultation: normal bowel sounds : Female genitals images: 1. follicultis-no drainable abscess 2. area of induration, erythema, warmth with central area of drainage Back/Spine/Pelvis: Thoracic/Lumbar Spine: thoracic and lumbar spine normal to inspection Skin: General skin exam: no rashes or lesions noted Neuro: General: patient oriented x3, no focal motor deficits and normal sensation to monofilament Cranial nerves: Yes Equal, round and reactive pupils present Cognition (Neuro): normal cognition Speech: No Abnormal speech present Gait exam (Neuro): Normal gait present Motor exam (neuro): 5/5 motor strength present throughout Extrem: Other: Small abscess to right axilla-no drainable fluid collection General: Yes normal to inspection Course Course Course Narrative: folliculitis with several small draining areas. No need for I&D. Will treat with course of antibiotics. Reviewed worrisome signs/symptoms with patient and when to return to ED. Comfortable with discharge home. MDM - Skin/Abscess/Foreign Bdy Differential Diagnosis Differential diagnosis: Likely abscess of skin or subcutaneous tissue Medical Records Attestation: I reviewed the patient's medical records. Lab Data Attestation: I reviewed the patient's lab results. Discharge Plan Discharge Clinical Impression: Abscess of multiple sites Patient Disposition: Home, Self-Care Instructions: Abscess (ED) Additional Instructions: Warm compresses Take the antibiotics as prescribed Prescriptions: New doxycycline monohydrate 100 mg tablet 100 mg PO BID Qty: 10 RF: 0 No Action omeprazole 20 mg tablet,delayed release (DR/EC) 20 mg PO DAILY Qty: 30 RF: 0 ondansetron HCl [Zofran] 4 mg tablet 4 mg PO Q6H PRN (Reason: nausea) 3 Days Qty: 12 RF: 0 pantoprazole 20 mg tablet,delayed release (DR/EC) 20 mg PO QAM Qty: 30 RF: 6 bisacodyl [Dulcolax (bisacodyl)] 5 mg tablet,delayed release (DR/EC) 10 mg PO ONCE 1 Days Qty: 2 RF: 0 polyethylene glycol 3350 [Miralax] 17 gram/dose powder 238 g PO ONCE 1 Days Qty: 238 RF: 0 Referrals: Physician,Unknown [Primary Care Provider] - 2 days Interventions: ED Discharge Assessment Last Done: 10/30/20 18:08 Discharge Date/Time: 10/30/20 18:09
== END 2020-10-30 18:09 | disposition home or self-care (01) ==
LOC: HO.ED 17:43
PROVIDERS: Emergency Provider Emergency Medicine Emergency Medical Services
DX: L02.31 Cutaneous abscess of buttock (principal); L73.9 Follicular disorder, unspecified; F17.200 Nicotine dependence, unspecified, uncomplicated; Z71.6 Tobacco abuse counseling; Z79.899 Other long term (current) drug therapy
CPT/HCPCS: 99282; 99283

== ENCOUNTER 2020-10-31 13:09 | Outpatient (REF) | payer MEDICAID, SELFPAY ==
--- NOTE | ~2020-10-31 | MM_ITS ---
EXAMINATION: MM DIAGNOSTIC DIGITAL BREAST TOMOSYNTHESIS, BILATERAL US DIAGNOSTIC ULTRASOUND BREAST/AXILLA, RIGHT CLINICAL INFORMATION: 34-year-old with tender superficial nodule right axilla. Patient seen in ER one day ago with antibiotic prescription. Prior history intermittent bilateral breast pain, currently no breast pain or palpable mass. No discharge. No prior breast imaging. The lifetime risk of breast cancer based on the Tyrer-Cuzick Model is 12%. COMPARISON: None (current study represents initial baseline exam). TECHNIQUE: Digital breast tomosynthesis is performed in both the craniocaudal and mediolateral oblique views along with computer-aided detection (CAD). Synthesized 2D images are generated from the tomosynthesis. Additional right MLO view is provided. Ultrasound right axilla is targeted to the area of clinical concern using grayscale imaging and color Doppler without and with harmonics. Patient is able to point to the area time of imaging. FINDINGS: The breasts are almost entirely fatty (ACR BI-RADS breast composition Category a). There is a 1.2 cm ill-defined nodule at site of palpable concern right axilla with some mild induration in the subcutaneous soft tissue. The breasts show no mass or architectural abnormality. No focal duct ectasia. No abnormal calcifications. Background stromal markings appear normal. No skin thickening or coarsening of the Thiago's ligaments. No lymphadenopathy. Ultrasound targeted to the tender palpable nodule right axilla demonstrates a complicated cystic lesion within the skin measuring 1.3 x 0.7 x 0.9 cm. There is surrounding hyperemia with strong peripheral color flow. There is no subdermal extension. No visible lymphadenopathy. Results are discussed with the patient at time of visit. Finding right axilla most likely represents an inflamed intradermal cyst/sebaceous cyst. Patient advised to continue with antibiotics, warm compresses as recently recommended, and follow-up with her PCP next week. MM/MM tomosynthesis diagnostic BI IMPRESSION: 1. Inflamed intradermal cyst/sebaceous cyst at site of palpable concern right axilla measuring 1.3 cm. No subdermal extension. 2. Otherwise unremarkable bilateral mammography. ASSESSMENT: BI-RADS 2: Benign RECOMMENDATION: 1. Patient to follow up with her primary care provider next week. In the meantime, patient should continue with recent management recommendations, including prescribed antibiotics and warmth compresses. 2. Otherwise, routine annual screening mammography, beginning age 40, or earlier as clinical risk factors warrant. This patient's information was entered into a reminder system with a target due date for their next mammogram.
== END 2020-10-31 13:10 | disposition home or self-care (01) ==
LOC: HO.MAMMO 13:09
PROVIDERS: Visit Provider Family Medicine
DX: N64.4 Mastodynia (principal); Z80.3 Family history of malignant neoplasm of breast
CPT/HCPCS: 76642; 77062; 77066

== ENCOUNTER 2022-04-05 10:08 | Emergency (ER) | payer MEDICAID, SELFPAY ==
--- NOTE | ~2022-04-05 | US_ITS ---
EXAMINATION: US FIRST TRIMESTER CLINICAL INFORMATION: Bleeding LMP: 02/11/2022 Beta-hCG: Unknown COMPARISON: None available. TECHNIQUE: Transabdominal imaging was performed. FINDINGS: UTERUS AND INTRAUTERINE GESTATIONAL SAC: There is a single intrauterine gestational sac. CROWN-RUMP LENGTH (CRL) : 1.26 cm, estimated age 7 weeks 4 days, estimated date of confinement is 11/18/2022 YOLK SAC: Not found HEART MOTION: Not detected BPM. SUBCHORIONIC HEMORRHAGE: None OVARIES: Right: Normal Left: Normal cyst follicle 2 x 1.6 x 1.6 cm. FREE FLUID: None OTHER FINDINGS: None US/US OB pelvic and transvaginal IMPRESSION: 1. Single live intrauterine . 2. heart rate could not be well detected on today's exam, cannot rule out demise, clinical correlation and follow-up recommended.
[2022-04-05 10:51] VITALS: BP 126/81; PULSE 99; RESP 16; O2SAT 100; BMI 25.8
--- NOTE | 2022-04-05 12:14 | MHC.RECOVRN ---
Received call from pt from the community in regards to alcohol ATS and encouraged her to come to ED for evaluation due to also reporting . Pt reports drinking 1-1.5 pints [place] daily for a long time. Pt reporting withdrawal symptoms including headache, nausea, sweating. Pt reports alcohol use increased in 2019 after pts mom . Pt states I'm functional, I just drink because I have to now. It's like medicine. Pt had been to [facility] ATS x 1 in July. Pt is looking for ATS at this time.
[2022-04-05 12:15] LABS: MANUAL DIFF FLAG NO
[2022-04-05 12:16] LABS: Basophils Percent Auto 0.3 % (0-2); Eosinophils Absolute Auto 0.1 X10*3/uL (0.0-0.4); Eosinophils Percent Auto 0.8 % (0-4); Hematocrit 34.5 % (37.0-47.0); Hemoglobin 11.7 g/dl (12.0-16.0); Imm Gran Abs Auto 0.03 X10*3/uL (0.00-0.03); Imm Gran Pct Auto 0.3 % (0.0-0.4); Lymphocytes Absolute Auto 1.6 X10*3/uL (1.2-4.9); Lymphocytes Percent Auto 14.9 % (20-40); Mean Corpuscular HGB Conc 33.9 g/dl (31.0-35.0); Mean Corpuscular Volume 85.4 fL (80.0-98.0); Mean Platelet Volume 9.6 fL (9.4-12.3); Monocytes Absolute Auto 0.6 X10*3/uL (0.1-1.2); Monocytes Percent Auto 5.6 % (2-11); Neutrophils Absolute Auto 8.3 x10*3/uL (2.0-8.3); Neutrophils Percent Auto 78.1 % (45-73); Platelet Count 283 X10*3/uL (160-400); Red Blood Count 4.04 X10*6/uL (4.20-5.50); Red Cell Distribution Width 14.1 % (11.0-16.0); White Blood Count 10.6 X10*3/uL (4.8-10.8)
[2022-04-05 12:17] LABS: Appearance Urine Clear; Color Urine Yellow; Glucose Urine UA Negative (Negative); Leukocyte Esterase Urine Moderate (2+) (Negative); Nitrite Urine Negative (Negative); PH 5.5 (5.0-9.0); Specific Gravity - Urine 1.015 (1.005-1.025); UMIC TRIGGER UACC YES; Urine Blood Negative (Negative); Urine Ketones Negative (Negative); Urine Protein Negative (Neg-Trace)
[2022-04-05 12:19] LABS: UPreg QC Valid YES; Urine Pregnancy POSITIVE (NEGATIVE)
[2022-04-05 12:22] LABS: Bacteria Urine None Seen (None Seen); Hyaline Casts Urine 0-2 /LPF (0-2); RBC Urine 0-2 /HPF (0-2); UACC Culture Trigger YES; WBC Urine 21-50 /HPF (0-5)
[2022-04-05 12:33] LABS: Amphetamine Screen Urine Not Detected (Not Detect); Barbiturates, Urine Not Detected (Not Detect); Benzodiazepines Screen Urine Not Detected (Not Detect); Cannabinoid Screen Urine POSITIVE (Not Detect); Cocaine Screen Urine Not Detected (Not Detect); Fentanyl, urine Not Detected (Not Detect); Opiate Screen Urine Not Detected (Not Detect); Phencyclidine Screen Urine Not Detected (Not Detect)
[2022-04-05 12:37] LABS: Alanine Aminotransferase 9 U/L (0-31); Albumin Level 4.3 g/dL (3.5-5.0); Alkaline Phosphatase 59 U/L (39-117); Anion Gap 13 (12-20); Aspartate Amino Transferase 14 U/L (5-31); Bilirubin Total 0.4 mg/dL (0.0-1.0); Blood Urea Nitrogen 5 mg/dL (9-16); Calcium 9.8 mg/dL (8.4-10.2); Carbon Dioxide 26 mmol/L (22-29); Chloride 102 mmol/L (96-108); Creatinine Clr Calc Pharmacy 122.5; Estimated Glomerular Filt Rate > 60; Ethanol 14 mg/dL; Glucose Random 78 mg/dL (60-115); Lipase 12 U/L (8-78); Potassium 3.7 mmol/L (3.3-5.1); Sodium 137 mmol/L (135-145); Total Protein 7.6 g/dL (6.5-8.0)
--- NOTE | 2022-04-05 13:03 | ED.ALCOHOL ---
HPI - Alcohol General Chief Complaint: ETOH/Substance Use Stated Complaint: detox Time Seen by Provider: 04/05/22 11:50 Source: patient Mode of arrival: ambulatory Limitations: no limitations History of Present Illness HPI narrative: patient is a 36-year-old female who presents to the emergency department requesting assistance with detox from alcohol. She reports that she was in detox in July 2021 at [facility], had been doing well until February of 2022 when she began drinking again. Currently she reports drinking 1-1.5 pt of gin daily. In the past with withdrawal she has had vomiting and tremors, denies any history of withdrawal seizures. Reports her last drink was at 08:30 this morning. she contacted our care team from the community, and reported that she has recently found out she was therefore was referred to the emergency department. Reports her last menstrual period was February 16, she had a positive test 3 days ago. Not currently followed by an OB. Reports some suprapubic cramping. Related Data Previous Rx's Medication Instructions Recorded omeprazole 20 mg tablet,delayed 20 mg PO DAILY #30 tabs 09/02/20 release ondansetron HCl 4 mg tablet 4 mg PO Q6H PRN nausea 3 days #12 10/08/20 (Zofran) tabs bisacodyl 5 mg tablet,delayed 10 mg PO ONCE colonoscopy prep 1 10/21/20 release (Dulcolax (bisacodyl)) day #2 tabs pantoprazole 20 mg tablet,delayed 20 mg PO QAM #30 tabs 10/21/20 release polyethylene glycol 3350 17 238 g PO ONCE 1 day #238 grams 10/21/20 gram/dose oral powder (Miralax) doxycycline monohydrate 100 mg 100 mg PO BID #10 tabs 10/30/20 tablet Allergies Allergy/AdvReac Type Severity Reaction Status Date / Time No Known Allergies Allergy Verified 10/30/20 17:23 [No Known Allergies*] Review of Systems Review of Systems: Constitutional: No weight loss. No fever. No chills. No weakness. No fatigue. ENT: No sore throat. No rhinorrhea. No nasal congestion. No sore throat. No difficulty swallowing. Skin: No rash. No itching. Cardiovascular: No chest pain. No chest pressure. No palpitations. No pedal edema. Respiratory: No shortness of breath. No cough. No sputum production. Gastrointestinal: No anorexia. No nausea. No vomiting. No diarrhea. Positive suprapubic cramping. No blood in stool. Genitourinary: No burning micturition. No urinary frequency. No incontinence. No vaginal discharge or bleeding. Neurologic: No headache. No dizziness. No pre-syncope/ syncope. No unilateral weakness. No ataxia. No numbness. No tingling. No change in bowel or bladder control. Musculoskeletal: No muscle pain. No back pain. No joint pain. No stiffness. Psychiatric:No depression. Positive anxiety. Yes all other systems are reviewed and are negative [facility] Past Medical History Attestation statement: The following information was validated with the patient. Source: old records reviewed Medical History FH: cholecystectomy Family History Family History Unknown No problems noted. Social History Social History Household Members Other:: 3 kids Alcohol intake: current Alcohol intake frequency: holidays/special occasions only Patient Tobacco Use Status: Current everyday Tobacco user Advance Directives: No Advance Directives Information Provided: No Physical Exam ED Vital Signs: Vital Signs - 24 hr 04/05/22 10:51 04/05/22 14:59 04/05/22 18:08 Temperature 98.4 F Pulse Rate 99 93 Respiratory Rate 16 18 Blood Pressure 126/81 119/80 Pulse Oximetry 100 100 Oxygen Delivery Method Room Air Room Air BMI result Body Mass Index 25.8 Appearance: Alert.?Oriented to person, place and time. No acute distress.?Normal affect. Eyes: Pupils equal, round and reactive to light.? ENT: Pharynx normal.?? Neck: Normal inspection.? Neck supple.?? CVS: Heart sounds normal. Normal heart rate and rhythm.? Pulses normal.?? Respiratory: No respiratory distress.? Lung sounds clear to auscultation bilaterally?? Abdomen: Soft and non-tender. Normoactive bowel sounds. ? Skin: Skin warm and dry.? Normal skin color.? Extremities: No lower extremity edema.? No calf ttp? Neuro: Moves all extremities spontaneously. Sensation intact bilaterally. CN II-XII intact. No focal neuro deficits. Ambulates with normal steady gait. Course Reevaluation(s) Reevaluation #1: review of patient's labs, CBC without leukocytosis, has a mild normocytic anemia not needing transfusion criteria. CMP is overall unremarkable. HCG corresponding with gestational age is noted on ultrasound. Ultrasound revealing single intrauterine , however unable to detect heart motion, heart rate would not be well detected; cannot rule out demise. I consulted with OB, Dr. Odonnell, discussed patient presentation, lab findings, and ultrasound; he advises that criteria for missed is CRL >7mm and no heart rate, ultrasound today reveals CRL 12.6mm. Dr. Odonnell advises no intervention required at this time, patient would be stable for discharge in outpatient follow-up. She will require repeat hCG and ultrasound in the next 2-5 days, in addition to re-evaluation, at the time if she has not passed products of conception on her own she may require medication assistance for this. I discussed these findings at length with patient. She verbalizes understanding of this. She is expressing increased anxiety in addition to this, for which she will be given lorazepam orally. I spoke with care team, who have spoken with her recovery center; [facility], and patient still remains accepted for detox at this time. She is agreeable for transfer. Transfer is arranged for 20:00 tonight. Time: 19:07 Medical Decision Making Medical Decision Making MDM Narrative: patient is a 36-year-old female presenting to the emergency department requesting assistance with detox from alcohol. Overall she is well appearing, vital signs stable, without tremors, neurological symptoms. She does report mild anxiety. Has recently found out she was , last menstrual period 02/17/2020 to, and has associated suprapubic cramping without pelvic pain, discharge, or bleeding. Will obtain basic labs Additional pelvic ultrasound to assure intrauterine and rule out ectopic given presence of abdominal pain. Consult Healthcare Provider Management of the patient was discussed with: Application Support Developer ( OBGYN; Dr. Odonnell as noted in course) Lab Data MDM Lab Attestation statement: I reviewed the patient's lab results. Result Diagrams: 04/05/22 12:06 04/05/22 12:06 Labs: Lab Results 04/05/22 04/05/22 04/05/22 Range/Units 12:06 12:06 12:06 WBC 10.6 (4.8-10.8) X10*3/uL RBC 4.04 L (4.20-5.50) X10*6/uL Hgb 11.7 L (12.0-16.0) g/dl Hct 34.5 L (37.0-47.0) % MCV 85.4 (80.0-98.0) fL MCH 29.0 (27.0-33.0) pg MCHC 33.9 (31.0-35.0) g/dl RDW 14.1 (11.0-16.0) % Plt Count 283 (160-400) X10*3/uL MPV 9.6 (9.4-12.3) fL Immature Gran % (Auto) 0.3 (0.0-0.4) % Neut % (Auto) 78.1 H (45-73) % Lymph % (Auto) 14.9 L (20-40) % [place] % (Auto) 5.6 (2-11) % Eos % (Auto) 0.8 (0-4) % Baso % (Auto) 0.3 (0-2) % Lymph # (Auto) 1.6 (1.2-4.9) X10*3/uL [place] # (Auto) 0.6 (0.1-1.2) X10*3/uL Eos # (Auto) 0.1 (0.0-0.4) X10*3/uL Baso # (Auto) 0.0 (0.0-0.2) X10*3/uL Abs Immat Gran (auto) 0.03 (0.00-0.03) X10*3/uL Absolute Neuts (auto) 8.3 (2.0-8.3) x10*3/uL Absolute Nucleated RBC 0.000 (0.0-0.012) X10*3/uL Nucleated RBC % (auto) 0.0 (0.0-0.2) /100WBC Sodium 137 (135-145) mmol/L Potassium 3.7 (3.3-5.1) mmol/L Chloride 102 (96-108) mmol/L Carbon Dioxide 26 (22-29) mmol/L Anion Gap 13 (12-20) BUN 5 L (9-16) mg/dL Creatinine 0.68 (0.5-1.4) mg/dL Estim Creat Clear Calc 122.5 Estimated GFR > 60 Random Glucose 78 (60-115) mg/dL Calcium 9.8 (8.4-10.2) mg/dL Total Bilirubin 0.4 (0.0-1.0) mg/dL AST 14 (5-31) U/L ALT 9 (0-31) U/L Alkaline Phosphatase 59 (39-117) U/L Total Protein 7.6 (6.5-8.0) g/dL Albumin 4.3 (3.5-5.0) g/dL Lipase 12 (8-78) U/L Beta HCG, Quant 17185 mIU/mL Urine Color Yellow Urine Appearance Clear Urine pH 5.5 (5.0-9.0) Ur Specific [place] 1.015 (1.005-1.025) Urine Protein Negative (Neg-Trace) mg/dL Urine Glucose (UA) Negative (Negative) mg/dL Urine Ketones Negative (Negative) mg/dL Urine Blood Negative (Negative) Urine Nitrite Negative (Negative) Ur Leukocyte Esterase Moderate (2+) H (Negative) Urine RBC 0-2 (0-2) /HPF Urine WBC 21-50 H (0-5) /HPF Ur Squamous Epith Cells 3-5 (0-2) /HPF Urine Bacteria None Seen (None Seen) Hyaline Casts 0-2 (0-2) /LPF Urine Test (NEGATIVE) Urine Opiates Screen (Not Detect) Urine Fentanyl Screen (Not Detect) Ur Barbiturates Screen (Not Detect) Ur Phencyclidine Scrn (Not Detect) Ur Amphetamines Screen (Not Detect) U Benzodiazepines Scrn (Not Detect) Urine Cocaine Screen (Not Detect) U Marijuana (THC) Screen (Not Detect) Ethyl Alcohol 14 mg/dL COVID-19 (SAQIB) (Negative) COVID-19 Clin Com 04/05/22 04/05/22 04/05/22 Range/Units 12:06 12:06 12:22 WBC (4.8-10.8) X10*3/uL RBC (4.20-5.50) X10*6/uL Hgb (12.0-16.0) g/dl Hct (37.0-47.0) % MCV (80.0-98.0) fL MCH (27.0-33.0) pg MCHC (31.0-35.0) g/dl RDW (11.0-16.0) % Plt Count (160-400) X10*3/uL MPV (9.4-12.3) fL Immature Gran % (Auto) (0.0-0.4) % Neut % (Auto) (45-73) % Lymph % (Auto) (20-40) % Pacific % (Auto) (2-11) % Eos % (Auto) (0-4) % Baso % (Auto) (0-2) % Lymph # (Auto) (1.2-4.9) X10*3/uL [place] # (Auto) (0.1-1.2) X10*3/uL Eos # (Auto) (0.0-0.4) X10*3/uL Baso # (Auto) (0.0-0.2) X10*3/uL Abs Immat Gran (auto) (0.00-0.03) X10*3/uL Absolute Neuts (auto) (2.0-8.3) x10*3/uL Absolute Nucleated RBC (0.0-0.012) X10*3/uL Nucleated RBC % (auto) (0.0-0.2) /100WBC Sodium (135-145) mmol/L Potassium (3.3-5.1) mmol/L Chloride (96-108) mmol/L Carbon Dioxide (22-29) mmol/L Anion Gap (12-20) BUN (9-16) mg/dL Creatinine (0.5-1.4) mg/dL Estim Creat Clear Calc Estimated GFR Random Glucose (60-115) mg/dL Calcium (8.4-10.2) mg/dL Total Bilirubin (0.0-1.0) mg/dL AST (5-31) U/L ALT (0-31) U/L Alkaline Phosphatase (39-117) U/L Total Protein (6.5-8.0) g/dL Albumin (3.5-5.0) g/dL Lipase (8-78) U/L Beta HCG, Quant mIU/mL Urine Color Urine Appearance Urine pH (5.0-9.0) Ur Specific [place] (1.005-1.025) Urine Protein (Neg-Trace) mg/dL Urine Glucose (UA) (Negative) mg/dL Urine Ketones (Negative) mg/dL Urine Blood (Negative) Urine Nitrite (Negative) Ur Leukocyte Esterase (Negative) Urine RBC (0-2) /HPF Urine WBC (0-5) /HPF Ur Squamous Epith Cells (0-2) /HPF Urine Bacteria (None Seen) Hyaline Casts (0-2) /LPF Urine Test POSITIVE H (NEGATIVE) Urine Opiates Screen Not Detected (Not Detect) Urine Fentanyl Screen Not Detected (Not Detect) Ur Barbiturates Screen Not Detected (Not Detect) Ur Phencyclidine Scrn Not Detected (Not Detect) Ur Amphetamines Screen Not Detected (Not Detect) U Benzodiazepines Scrn Not Detected (Not Detect) Urine Cocaine Screen Not Detected (Not Detect) U Marijuana (THC) Screen POSITIVE H (Not Detect) Ethyl Alcohol mg/dL COVID-19 (SAQIB) Negative (Negative) COVID-19 Clin Com See Note Radiology Impression Discussion of test interpretation with radiology: I have reviewed the radiologist's reading. Radiologist Impression: US/US OB pelvic and transvaginal IMPRESSION: 1. Single live intrauterine . ? 2. heart rate could not be well detected on today's exam, cannot rule out demise, clinical correlation and follow-up recommended. Medications Administered Discontinued Medications Generic Name Dose Route Start Last Admin Trade Name Freq PRN Reason Stop Dose Admin Lorazepam 2 mg 04/05/22 17:51 04/05/22 17:59 Lorazepam 1 Mg Tablet PO 04/05/22 17:52 2 mg ONCE ONE Administration Discharge Plan Discharge Clinical Impression: Alcohol dependence, Missed Patient Disposition: Xfer Other Transfer Details: [facility] Instructions: Alcohol Use Disorder (ED) Additional Instructions: It has been arranged for you to go to [facility] (formerly [facility]) for detox, You were provided with transportation and agreeable with this plan of care. Regarding your ; as we discussed the findings on your ultrasound are consistent for a missed . this means that there was an unrecognized of the embryo/ Fetus without your knowledge, without expulsion of the products of conception (bleeding, passing of clots or tissue, cramping, abdominal pain). As we discussed you may pass the on your own over the next few days; this may cause you to have bleeding, cramping, abdominal pain. You will need to follow-up with OB, Dr. Odonnell, you have been given the contact information for his office. please call his office tomorrow morning to arrange for a follow-up visit for or Tuesday. You will need repeat blood work in addition to an ultrasound. Furthermore, as we discussed if you do not past the on your own you may require medications to facilitate this. You may return to the emergency department with any new or worsening symptoms or concerns. Tylenol may be used as needed for pain. Prescriptions: No Action omeprazole 20 mg tablet,delayed release (DR/EC) 20 mg PO DAILY Qty: 30 0RF doxycycline monohydrate 100 mg tablet 100 mg PO BID Qty: 10 0RF ondansetron HCl [Zofran] 4 mg tablet 4 mg PO Q6H PRN (Reason: nausea) 3 Days Qty: 12 0RF pantoprazole 20 mg tablet,delayed release (DR/EC) 20 mg PO QAM Qty: 30 6RF bisacodyl [Dulcolax (bisacodyl)] 5 mg tablet,delayed release (DR/EC) 10 mg PO ONCE 1 Days Qty: 2 0RF Rx Instructions: Take 2 tablets by mouth at 12:00pm the day before your procedure. polyethylene glycol 3350 [Miralax] 17 gram/dose powder 238 g PO ONCE 1 Days Qty: 238 0RF Rx Instructions: Take as directed by mouth the day before your procedure. Referrals: Nils Odonnell MD [Physician] - Interventions: [place]-Suicide Risk Severity Scale Last Done: 04/05/22 13:25
[2022-04-05 13:04] LABS: COVID-19 Test Negative (Negative); IDNOW Serial# 9DB6401D
--- NOTE | 2022-04-05 13:23 | PC.NURSE ---
patient alert and oriented x4. denies abd pain. ambulating with steady gait. CIWA score 7. will continue to monitor for worsening withdrawal symptoms
[2022-04-05 14:59] VITALS: BP 119/80; PULSE 93; RESP 18; O2SAT 100
--- NOTE | 2022-04-05 15:12 | MHC.RECOVRN ---
[facility] does not have bed availability. Referral has been sent to [facility].
--- NOTE | 2022-04-05 15:54 | MHC.RECOVRN ---
Pt completed phone intake with [facility]. Pt accepted, admission time 8PM. Pt will need Lyft to [place]. CARE Team aware.
--- NOTE | 2022-04-05 17:25 | P.CONOB_ITS ---
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 She reports that she was in detox in July 2021 and was doing well but she recently relapsed again.? The patient gives a history of withdrawal seizures.?she has recently found out she was therefore was referred to the emergency department.? LMP was 02/16/2022 making her by today at 7 weeks and 4 days of gestation.? No care.? Complaining of might suprapubic cramping no vaginal bleeding or any other concerns. In the emergency room HCG was 74,902 , ultrasound showed a fetus with a CRL of 1.26 cm with no heart rate. Rh positive cc:: CC: OB [facility] Past Medical History Medical History FH: cholecystectomy Family History Family History Unknown No problems noted. Social History Social History Household Members Other:: 3 kids Alcohol intake: current Alcohol intake frequency: holidays/special occasions only Patient Tobacco Use Status: Current everyday Tobacco user Advance Directives: No Advance Directives Information Provided: No Meds Allergies Allergy/AdvReac Type Severity Reaction Status Date / Time No Known Allergies Allergy Verified 10/30/20 17:23 [No Known Allergies*] AUTOMATIC SCREWMAKER Physical Exam Vitals Vital signs: Pulse Resp BP Pulse Ox O2 Del Method 93 18 119/80 100 04/05/22 14:59 04/05/22 14:59 04/05/22 14:59 04/05/22 14:59 04/05/22 14:59 BMI result Body Mass Index 25.8 Additional Comments: Physical exam reported by JANUARY Singh in the emergency room as the fol lowing: Abdomen: Soft and nontender AUTOMATIC SCREWMAKER - Results Labs CBC & Chem 7: 04/05/22 12:06 04/05/22 12:06 Labs: Short CBC 04/05/22 Range/Units 12:06 WBC 10.6 (4.8-10.8) X10*3/uL Hgb 11.7 L (12.0-16.0) g/dl Hct 34.5 L (37.0-47.0) % Plt Count 283 (160-400) X10*3/uL BMP 04/05/22 12:06 Sodium 137 Potassium 3.7 Chloride 102 Carbon Dioxide 26 BUN 5 L Creatinine 0.68 Calcium 9.8 Liver Function 04/05/22 Range/Units 12:06 Total Bilirubin 0.4 (0.0-1.0) mg/dL AST 14 (5-31) U/L ALT 9 (0-31) U/L Alkaline Phosphatase 59 (39-117) U/L Albumin 4.3 (3.5-5.0) g/dL Urine 04/05/22 04/05/22 Range/Units 12:06 12:06 Urine Color Yellow Urine Appearance Clear Urine pH 5.5 (5.0-9.0) Ur Specific [place] 1.015 (1.005-1.025) Urine Protein Negative (Neg-Trace) mg/dL Urine Glucose (UA) Negative (Negative) mg/dL Urine Test POSITIVE H (NEGATIVE) Imaging US - abdomen: Radiologist's impression: ITS Impressions Pelvic/Transvag US 04/05/22 13:44 IMPRESSION: 1. Single live intrauterine . 2. heart rate could not be well detected on today's exam, cannot rule out demise, clinical correlation and follow-up recommended. Assessment and Plan (1) Missed : Status: Acute Recommended to JANUARY Singh the following: Since CRL is above 7 mm no heart rate, the ultrasound is suspicious of missed , recommended repeat hCG quantitative and ultrasound in 1 to 2 days to confirm the diagnosis then discuss with the different options of management including medical versus surgical termination of . Meanwhile SAB warnings to be given to patient, she is to come back to the jani rgency room in case of pelvic cramping and /or bleeding. The patient is to have a close outpatient follow up or be transferred to an inpatient facility with commercial floor covering installer services available. If the patient has a viable , will discuss risk of alcohol intake in , specifically alcoholic syndrome. Instructions to be given to patient to call our office to schedule an outpatient appointment as soon as possible with repeat hCG and repeat ultrasound in case the inpatient facility does not have commercial floor covering installer services available. Orders were in place I spent a total of 20 minutes reviewing the chart, communicating with the emergency room provider and documenting the medical record (2) Alcohol dependence: Status: Acute For emergency room team and after consultation with urine has, the patient needs to be transferred to an inpatient for alcohol detox, defer the management for emergency room team Time Spent With Patient Time: Total time managing care of this patient today ____ minutes.
[2022-04-05] MEDS: LORazepam 1 MG TABLET 2 MG PO (17:59)
[2022-04-05 18:08] VITALS: TEMP 36.9
--- NOTE | 2022-04-05 19:30 | PC.NURSE ---
Assumed care of pt. at 1900. At this time pt. to be transferred to [facility] for detox. Lyft services have been obtained. Called [facility] and left a message at the nurses station. Nurses currently in report and unable to take the call and will call back if they have any further questions.
== END 2022-04-05 20:02 | disposition other institution (70) ==
PROVIDERS: Nurse Practitioner Family; Emergency Provider Student in an Organized Health Care Education/Training Program
DX: O02.1 Missed abortion (principal); O99.311 Alcohol use complicating pregnancy, first trimester; F10.20 Alcohol dependence, uncomplicated; Y90.0 Blood alcohol level of less than 20 mg/100 ml; O09.511 Supervision of elderly primigravida, first trimester; O99.331 Smoking (tobacco) complicating pregnancy, first trimester; Z3A.01 Less than 8 weeks gestation of pregnancy
CPT/HCPCS: 36415; 76801; 76817; 80053; 80307; 81001; 81025; 82077; 83690; 84702; 85025; 87086; 87635; 99284

== ENCOUNTER 2022-04-08 08:43 | Outpatient (REF) | payer MEDICAID, SELFPAY ==
--- NOTE | ~2022-04-08 | US_ITS ---
EXAMINATION: US OBSTETRICAL ULTRASOUND CLINICAL INFORMATION: Missed COMPARISON: April 05, 2022. LMP: February 16, 2022. Gestational age by maternal dates is 7 weeks 2 days. Estimated date of delivery by maternal dates is November 23, 2022. TECHNIQUE: OB ultrasound FINDINGS: There is a single intrauterine gestational sac with visible yolk sac and embryo/fetus. There is no significant subchorionic hemorrhage or hematoma. No heart rate was obtained today. HR: Not obtained CRL (crown rump length): 1.26 cm (7 weeks 4 days +/- 4 days). MARIANO (estimated date of delivery): November 21, 2022 +/- 4 days. MATERNAL ADNEXA: The right maternal ovary measures 2.4 x 1.0 x 1.8 cm. The left maternal ovary measures 2.6 x 2.2 x 2.0 cm. There is a 1.9 x 1.3 x 1.5 cm corpus luteum present. There is no significant maternal adnexal mass. No maternal pelvic ascites. US/US OB pelvic and transvaginal IMPRESSION: 1. Single intrauterine gestation with ultrasound gestational age of 7 weeks 4 days +/- 4 days. 2. Estimated date of delivery is November 21, 2022 +/- 4 days. 3. heart rate was not detected on today's study and demise cannot be ruled out.
== END 2022-04-08 08:44 | disposition home or self-care (01) ==
LOC: HO.US 08:43
PROVIDERS: PCP Family Medicine; Visit Provider Obstetrics & Gynecology
DX: O02.1 Missed abortion (principal); O99.311 Alcohol use complicating pregnancy, first trimester; O09.521 Supervision of elderly multigravida, first trimester; Z3A.01 Less than 8 weeks gestation of pregnancy
CPT/HCPCS: 36415; 76801; 76817; 84702; 99212

== ENCOUNTER 2023-05-23 12:00 | Emergency (ER) | payer MEDICAID, SELFPAY ==
--- NOTE | 2023-05-23 12:31 | ED.SKABFB ---
HPI - Skin/Abscess/Foreign Bdy General Chief complaint: General Medical Stated complaint: Lump under arm Time Seen by Provider: 05/23/23 15:45 Source: patient Mode of arrival: ambulatory Limitations: no limitations History of Present Illness HPI narrative: 37 year old female, currently 6 months , with hx of etoh dependence and colitis, presents to the ED today for evaluation of abscess to right axilla x3 weeks. Admits the abscess began as five little bumps under her armpit that have now grown into a large abscess. Admits this has happened previously earlier in the month however was able to drain it herself at home. Denies known history of hydraadenitis supperrativa or other dermatological conditions. Denies symptoms like this prior to this last month. Denies fever, chills, headache, dizziness, N/V, pain/numbness/tingling/weakness down right extremity. Additionally, she reports itching and dryness to left nipple x months. She has been applying OTC creams to the nipple without relief. Denies discharge, drainage. Denies personal or familial history of breast cancer. She has no concerns at this time. Denies N/V, abdominal pain, vaginal bleeding or discharge. Endorses regular follow up with OB. Related Data Previous Rx's Medication Instructions Recorded omeprazole 20 mg tablet,delayed 20 mg PO DAILY #30 tabs 09/02/20 release ondansetron HCl 4 mg tablet 4 mg PO Q6H PRN nausea 3 days #12 10/08/20 (Zofran) tabs bisacodyl 5 mg tablet,delayed 10 mg (2 x 5 mg) PO ONCE 10/21/20 release (Dulcolax (bisacodyl)) colonoscopy prep 1 day #2 tabs pantoprazole 20 mg tablet,delayed 20 mg PO QAM #30 tabs 10/21/20 release polyethylene glycol 3350 17 238 g PO ONCE 1 day #238 grams 10/21/20 gram/dose oral powder (Miralax) doxycycline monohydrate 100 mg 100 mg PO BID #10 tabs 10/30/20 tablet misoprostol 200 mcg tablet 800 mcg (4 x 200 mcg) vaginal ONCE 04/08/22 1 day #4 tabs cephalexin 500 mg capsule 500 mg PO QID 7 days #28 caps 05/23/23 Allergies Allergy/AdvReac Type Severity Reaction Status Date / Time No Known Allergies Allergy Verified 05/23/23 12:32 [No Known Allergies*] Review of Systems Review of Systems: Constitutional: No fever, chills, fatigue, night sweats, weight changes ENT/Mouth: No ear pain, hearing loss, nasal congestion, sinus pain, rhinorrhea, sore throat Eyes: No eye pain, swelling, redness, vision changes, discharge Cardio: No chest pain, palpitations, JURADO, orthopnea, peripheral edema Pulm: No SOB, cough, sputum, wheezing, dyspnea, hemoptysis GI: No nausea, vomiting, hematemesis, abdominal pain, diarrhea, constipation : No irregular bleeding, dysuria, frequency, urgency, hesitancy, hematuria, flank pain, urinary flow changes, urinary incontinence or retention MSK: No back pain, neck pain, joint pain, myalgias Skin: No lesions, rashes, +itching/dryness to left nipple, +abscess to right axilla Neuro: No weakness, numbness, paresthesias, LOC, dizziness, headache Psych: No anxiety/panic, depression, SI/HI, AH/VH All other systems reviewed and are negative. [facility] Past Medical History Attestation statement: The following information was validated with the patient. Source: old records reviewed and nursing notes reviewed Medical History FH: cholecystectomy Family History Family History Unknown No problems noted. Social History Social History Household Members Other:: 3 kids Alcohol intake: current Alcohol intake frequency: holidays/special occasions only Patient Tobacco Use Status: Current everyday Tobacco user Advance Directives: No Advance Directives Information Provided: No Physical Exam Vital Signs: Vital Signs: Last Vital Signs Temp 98 F 05/23/23 17:34 Pulse 78 05/23/23 17:34 Resp 18 05/23/23 17:34 BP 128/76 05/23/23 17:34 Pulse Ox 98 05/23/23 17:34 O2 Del Method Room Air 05/23/23 17:34 BMI result Body Mass Index 27.8 Vital signs stable, afebrile and normotensive. Const: General: cooperative, healthy appearing, comfortable and no acute distress Orientation/consciousness: patient oriented x3 Limitations: no limitations HEENT: Head: Yes normal to inspection Eyes: General: appearance normal, both eyes and all related structures Conjunctivae: conjunctivae normal Sclerae: sclerae normal Pupils: Equal, round and reactive pupils present Neck: Neck: Yes normal visual inspection Chest: Other: Breast exam: + right breast without palpable masses, nontender, nipple normal in appearance without expressible discharge. no overlying skin changes. right axilla with paplable abscess as noted below. + left breast without palpable masses, nontender, nipple scaly, weaping. no expressible discharge. no orange peel appearance. left axilla without palpable masses or tenderness. Chest/axillae images: 1. 10 cm x 5 cm raised area of erythema, indurated with central fluctuance and pointing. no streaking. warm. Exquisitely ttp. full rom intact to right shoulder. Resp: Effort & Inspection: normal respiratory effort Auscultation: clear to auscultation bilaterally Cardio: Rate: regular rate Rhythm: regular rhythm GI: Other: + gravid abdomen correlating with 24 weeks gestation. HR on doppler 158 and wnl > no concern for distress. Skin: General skin exam: no rashes or lesions noted Neuro: General: patient oriented x3 Cranial nerves: Yes Equal, round and reactive pupils present Course Course Course Narrative: RME: 37 year-old F w/no sig PMHx presenting to the ED c/o lump under right armpit x 1 week. Admits to similar sx 1 mos ago. denies active drainage or fever. Also reports L nipple itching & weeping x1 mos. R axillary abscess noted with pointing will need I&D. Nipple not evaluated in triage Full HPI, ROS and PE to be performed by primary ED provider. Reevaluation(s) Reevaluation #1: [id number]-- Performed I&D of right axilla abscess. 5ml lidocaine used. I was able to express some purulent discharge however even after breaking up the loculations, I only began to express blood. There was no more purulent discharge to express. The entire abscess is indurated with overlying erythema. I would offer double coverage however given patient's status, will only send Keflex to pharmacy. I have suspicion that patient has underlying hidradenitis suppurativa and will require consultation with General surgery. Referral provided. Additionally, exam findings of left breast are concerning for possible pagets disease vs dermatitis. Discussed prompt follow up with OBGYN regarding these symptoms as carcinoma cannot be ruled out. Discussed worrisome signs and symptoms of when to return to the ED. all questions answered at this time. Patient is agreeable with disposition stable for discharge. Medications Administered Discontinued Medications Generic Name Dose Route Start Last Admin Trade Name Beka PRN Reason Stop Dose Admin Acetaminophen 975 mg 05/23/23 17:12 05/23/23 17:20 Acetaminophen 325 Mg Tablet PO 05/23/23 17:13 975 mg ONCE ONE Administration Lidocaine HCl 5 ml 05/23/23 15:46 05/23/23 16:48 Lidocaine Hcl 1 % Mpf 5 Ml Vial INFILTRATI 05/23/23 15:47 5 ml ONCE ONE Administration Medical Decision Making Medical Decision Making MDM Narrative: 37 year old female, currently 6 months , with hx of etoh dependence and colitis, presents to the ED today for evaluation of abscess to right axilla x3 weeks. Vital signs stable. She is normotensive and afebrile > I do not note concern for sepsis. Nontoxic appearing and in NAD. Please refer to physical exam section for findings. Clinical concern for abscess, cellulitis, dermatitis, excema, epidermal cyst. Lower suspicion for pagets, sepsis, bacteremia. Differential Diagnosis Differential Diagnoses: The differential diagnosis associated with the presentation includes as above. Admission/Observation not indicated. Prescription Management I considered prescription management with: Pain Medication and Antibiotic (keflex) Chronic Conditions Patient?s care impacted by: Other () Social Determinants Patient?s care significantly limited by Social Determinants of Health including: Other Social Determinant of Health Procedures Abscess I/D Site: upper extremity (axilla) Side (if applicable): right Sedation/analgesia: none Local Anesthetic: lidocaine 1% Amount of anesthesia used (mL): 5 Technique: needle aspiration and incised with blade Sent for culture/gram staining?: No Irrigation: Yes Packing used?: none Complications: pain and bleeding Critical Care Time Critical Care Time Critical Care Time: Yes Total Critical Care Time: 40 Attestation: Critical care time in the amount of 45 minutes has been provided to the patient in terms of direct patient care, frequent reevaluation, review and interpretation of medical data and results, and management of potentially life-threatening conditions. This is all outside of any medical procedures. Discharge Plan Discharge Clinical Impression: Abscess of axilla, right, Cellulitis, Nipple dermatitis Patient Disposition: Home, Self-Care Instructions: Cephalexin (By mouth), Cellulitis (ED), Abscess (ED), Abscess Incision and Drainage (DC), Hidradenitis Suppurativa (ED) Additional Instructions: You were evaluated in the ED today for abscess in your right arm pit. We have expressed all of the discharge from the abscess. This requires treatment with antibiotics. Keflex is an antibiotic that has been sent to your pharmacy. Take this 4 times daily for the next 7 days. Take this antibiotic to completion or this may cause infection to persist or worsen. Take Tylenol for pain. You likely have underlying hidradenitis suppurativa and you need to follow-up with general surgery as this is likely to recur. You have been provided with a referral. CALL THEM TO ESTABLISH CARE. THEY WILL NOT CALL YOU. Apply warm compresses multiple times daily. Additionally you need to follow up with your OBGYN regarding nipple concerns as carcinoma cannot be ruled out. If symptoms persist or worsen please return to the ED. In the case of an emergency call 911. GENERAL SURGERY: [phone] Prescriptions: New cephalexin 500 mg capsule 500 mg PO QID 7 Days Qty: 28 0RF No Action omeprazole 20 mg tablet,delayed release (DR/EC) 20 mg PO DAILY Qty: 30 0RF doxycycline monohydrate 100 mg tablet 100 mg PO BID Qty: 10 0RF ondansetron HCl [Zofran] 4 mg tablet 4 mg PO Q6H PRN (Reason: nausea) 3 Days Qty: 12 0RF pantoprazole 20 mg tablet,delayed release (DR/EC) 20 mg PO QAM Qty: 30 6RF bisacodyl [Dulcolax (bisacodyl)] 5 mg tablet,delayed release (DR/EC) 10 mg PO ONCE 1 Days Qty: 2 0RF Rx Instructions: Take 2 tablets by mouth at 12:00pm the day before your procedure. polyethylene glycol 3350 [Miralax] 17 gram/dose powder 238 g PO ONCE 1 Days Qty: 238 0RF Rx Instructions: Take as directed by mouth the day before your procedure. misoprostol 200 mcg tablet 800 mcg vaginal ONCE 1 Days Qty: 4 0RF Rx Instructions: Insaert 800 mcg vaginal dose, 24 hours after Mifepristone dose by mouth Referrals: [facility] General Surgeons [Provider Group] Stand Alone Forms: Work/School Release Interventions: ED Discharge Assessment Last Done: 05/23/23 17:45 Discharge Date/Time: 05/23/23 17:47
[2023-05-23 12:32] VITALS: BP 121/73; PULSE 100; RESP 16; TEMP 36.6; O2SAT 99; BMI 27.8
[2023-05-23] MEDS: Lidocaine HCl 1 % MPF 5 ML VIAL INFILTRATI (16:48)
[2023-05-23] MEDS: Acetaminophen 325 MG TABLET 975 MG PO (17:20)
[2023-05-23 17:34] VITALS: BP 128/76; PULSE 78; RESP 18; TEMP 36.6; O2SAT 98
== END 2023-05-23 17:47 | disposition home or self-care (01) ==
PROVIDERS: Emergency Provider Student in an Organized Health Care Education/Training Program
DX: L02.411 Cutaneous abscess of right axilla (principal); N61.0 Mastitis without abscess; L30.8 Other specified dermatitis
CPT/HCPCS: 10061; 99284

== ENCOUNTER 2023-05-26 08:52 | Outpatient (REF) | payer MEDICAID, SELFPAY | END 2023-05-26 08:53 | disposition home or self-care (01) | LOC: HO.LNP 08:52 | PROVIDERS: Visit Provider Surgery | DX: N64.89 Other specified disorders of breast (principal); N63.20 Unspecified lump in the left breast, unspecified quadrant; L73.2 Hidradenitis suppurativa; L02.411 Cutaneous abscess of right axilla; B36.9 Superficial mycosis, unspecified; O26.899 Other specified pregnancy related conditions, unspecified trimester; Z3A.00 Weeks of gestation of pregnancy not specified | CPT/HCPCS: 11104; 88305; 88312; 99202 ==

== ENCOUNTER 2023-05-26 08:52 | Outpatient (AMB) | payer MEDICAID, SELFPAY ==
--- NOTE | 2023-05-26 08:58 | MHC.OFFVIS ---
Intake Vital Signs 05/26/23 09:28 Height 5 ft 8 in Weight 392 lb 6.765 oz BMI 59.7 BP 118/64 Blood Pressure Location Lt brachial Position Sitting Pulse 109 H Intake Visit Reasons: axillary abscess ? hidradenitis Intake Note: Patient is seen in office for ER follow up visit, following bilateral axillary abscesses and left breast lump. Patient c/o: b/l abscess of the axilla, onset 3 wks, admits to discharge, currently on antibiotics, denies current discharge, redness, hot to the touch, had some in the past, was I&D in the ER right side, left breast one month, open area, itchy, discharge, scale, and lump above the nipple, no prior breast surgeries, or breast feeding, currently 28 wks . Electronic Organ Technician Required: No Accompanied by: Spouse Allergies No Known Allergies [No Known Allergies*] Allergy (Verified 05/23/23 12:32) Patient : Yes HPI HPI Comments History of Present Illness Details 37-year-old female patient presenting for evaluation of abscess of the right axilla. She is currently 6 months and reports an approximately 3 week history of pain and swelling in the right axilla. She was evaluated in the emergency department on 05/24/2023 and found to have an abscess. She underwent incision and drainage of a small abscess collection in the emergency department. . Mostly blood was drained. She was subsequently discharged home on Keflex 500 mg q.i.d. for 7 days. She presents today for further evaluation of the right axillary hidradenitis. She also notes discharge and skin irritation involving the left nipple areolar complex. This began approximately 1 month ago has persisted. She reports discharge from multiple areas as well as a palpable lump located in the 12 o'clock position just above the areola. She is concerned about Paget's. [facility] Medical History FH: cholecystectomy Surgical History Hx laparoscopic cholecystectomy Family History Unknown No problems noted. Family/Other Breast cancer Social History Household Members Other:: 3 kids Alcohol intake: current Alcohol intake frequency: holidays/special occasions only Patient Tobacco Use Status: Current everyday Tobacco user Female Reproductive History Menstrual Age of Menarche: 9 Total pregnancies: 5 Number of Living Children: 3 Ab spontaneous: 1 Review of Systems Const All systems reviewed & are unremarkable except as noted in HPI and below Denies chills, Denies fever(s), Denies headache(s), Denies poor appetite and Denies weakness ENT Denies headache(s) Card Denies chest pain, Denies irregular heart rhythm, Denies palpitations and Denies dyspnea Resp Denies cough, Denies excessive phlegm production and Denies dyspnea GI Denies abdominal pain, Denies bloating, Denies change in bowel habits, Denies constipation, Denies heartburn, Denies diarrhea, Denies nausea and Denies vomiting Denies urinary frequency Musc Denies back pain, Denies muscle weakness and Denies numbness Skin/Breast Reports as per HPI, Denies changing lesions and Denies unusual bruising Neuro Denies headache(s), Denies numbness, Denies paresthesias and Denies weakness Psych Denies anxiety and Denies depression Endo Denies palpitations Francesco/Lymph Denies lymphadenopathy Physical Exam Vital Signs: Last Vital Signs Pulse 109 H 05/26/23 09:28 BP 118/64 05/26/23 09:28 BMI result Body Mass Index 59.7 Const General: cooperative and no acute distress Nutritional Appearance: well nourished Orientation/consciousness: patient oriented x3 Limitations: no limitations HEENT Head: Yes normocephalic and Yes atraumatic Ears: hearing grossly normal bilaterally Chest Other: Right axilla with a wide area of hidradenitis in the lateral axilla with a healing incision and drainage site in the midportion of this inflammation. Gentle pressure revealed small amount of purulence discharge from a separate area in the lower lateral axilla. No other undrained abscess is identified in the axilla. Examination of the left nipple does reveal a wide area of inflammation involving the areola and nipple. A mild thickening is noted above the areola in the 11 o'clock position. No definite Paget is identified. Resp Effort & Inspection: normal respiratory effort, no audible wheezes, no cough and no respiratory distress Cardio Jugular venous distension: no JVD GI Inspection: Yes normal to inspection Skin Other: Warm, dry, no rash Neuro General: patient oriented x3 Extrem General: Yes no clubbing, cyanosis or edema Office Procedures Punch Biopsy Details: Preoperative diagnosis: skin irritation left nipple areola possible Paget's Postoperative diagnosis: same Procedure: punch biopsy left breast areola Surgeon: Juan M Davey MD Electric Detector Operator: none Anesthesia: lidocaine 1% plain Indications for procedure: 37-year-old female patient presenting with skin irritation involving the left nipple. Patient is six-month . Operative findings: Skin irritation as noted above Specimen: punch biopsy left areola Estimated blood loss: none Complications: none Procedure details: patient was placed in a supine position. The site of surgery was confirmed by the patient in the left nipple-areolar complex. After assuring informed consent the skin was prepped with Betadine and draped in a sterile fashion. Local anesthesia was then infiltrated in the areola. A random punch biopsy was performed in the area of inflammation using a 2 mm punch biopsy. This was sent to pathology for further examination. Pressure was held to maintain hemostasis. A sterile bandage was then applied. The patient tolerated the procedure well was discharged to home in stable condition. Assessment & Plan Assessment & Plan (1) Abscess of axilla, right: Code(s): L02.411 - Cutaneous abscess of right axilla Plan Recommended applying nystatin to the left nipple twice daily. She will return in 1 week to review the pathology results. She should also use a antibacterial soap for the axilla and hands especially after touching the axillary lesion. We discussed referral to dermatology as well after her is complete. Patient expressed understanding and agrees with the plan. Medications: New nystatin applied to left nipple twice daily 1 appl topical BID 15 grams 0RF B36.9 - Superficial mycosis, unspecified Coding Level of Care Code New Pt Level 4 (53177) Diagnoses Abscess of axilla, right L02.411
[2023-05-26 09:28] VITALS: BP 118/64; PULSE 109; BMI 59.7
== END 2023-05-26 09:29 | disposition home or self-care (01) ==
PROVIDERS: Visit Provider Surgery
DX: L02.411 Cutaneous abscess of right axilla (principal); N64.52 Nipple discharge
CPT/HCPCS: 11104; 99204

== ENCOUNTER 2023-06-01 13:01 | Outpatient (AMB) | payer MEDICAID, SELFPAY ==
--- NOTE | 2023-06-01 13:07 | A.OFFVIS_ITS ---
Intake Vital Signs 06/01/23 13:11 Height 5 ft 8 in Weight 177 lb 6 oz BMI 27.0 BP 124/69 Blood Pressure Location Lt brachial Position Sitting Pulse 92 Intake Visit Reasons: 1 wk follow up axillary abscess ? hidradenitis Intake Note: Patient is seen in office for one week follow up visit, following abscess of the axilla. Patient c/o:right incision is healing however might have a new one, onset 2 days ago, denies any other concerns or changes Manager Document Control Required: No Accompanied by: Spouse Allergies No Known Allergies [No Known Allergies*] Allergy (Verified 06/01/23 13:11) Medication List - Last Reconciled 06/01/23 by Juan M Davey MD aspirin 162 mg PO DAILY chlorhexidine gluconate 4% (Hibiclens) 1 appl topically 2-3 times weekly; lather in shower and leave on 1 minute before washing off. 2 doses nystatin 1 appl topical BID PNV,calcium [id number] acid 27 mg iron- 1 mg ( Vitamins Plus Low Iron) 1 tab PO DAILY HPI HPI Comments History of Present Illness Details 37-year-old female patient presenting for evaluation of abscess of the right axilla. She is currently 6 months and reports an approximately 3 week history of pain and swelling in the right axilla. She was evaluated in the emergency department on 05/24/2023 and found to have an abscess. She underwent incision and drainage of a small abscess collection in the emergency department. Mostly blood was drained. She was subsequently discharged home on Keflex 500 mg q.i.d. for 7 days. She returns today for re-evaluation of the axilla and discussion of biopsy results from the left nipple punch biopsy. Punch biopsy was suggestive of eczema or psoriasis with no evidence of Paget's. She completed the antibiotics as prescribed by the ER. [facility] Medical History FH: cholecystectomy Surgical History Hx laparoscopic cholecystectomy Family History Unknown No problems noted. Family/Other Breast cancer Social History Household Members Other:: 3 kids Alcohol intake: current Alcohol intake frequency: holidays/special occasions only Patient Tobacco Use Status: Current everyday Tobacco user Female Reproductive History Menstrual Age of Menarche: 9 Review of Systems Const All systems reviewed & are unremarkable except as noted in HPI and below Physical Exam Vital Signs: Last Vital Signs Pulse 92 06/01/23 13:11 BP 124/69 06/01/23 13:11 BMI result Body Mass Index 27.0 Const General: no acute distress Chest Other: Evidence of chronic hidradenitis right axilla but no evidence of ongoing abscess at this time. Breast examination deferred Skin Other: Warm, dry, no rash Extrem General: No edema Assessment & Plan Assessment & Plan (1) Eczema: Code(s): L30.9 - Dermatitis, unspecified Qualifiers: Eczema type: unspecified Qualified Code(s): L30.9 - Dermatitis, unspecified (2) Hidradenitis suppurativa: Code(s): L73.2 - Hidradenitis suppurativa Plan 37-year-old female patient presenting with evidence of eczema involving the left nipple. Punch biopsy negative for Paget's. Previously infected hidradenitis of the right axilla is now resolved. I recommended intermittent use of Hibiclens to prevent further infections of the axilla or groins. Recommend consultation with Dermatology. Follow-up p.r.n.. Medications: New chlorhexidine gluconate 4% (Hibiclens) 1 appl topically 2-3 times weekly; lather in shower and leave on 1 minute before washing off. 236 mL 2RF Coding Level of Care Code Est Pt Level 3 (11262) Diagnoses Eczema, unspecified type L30.9 Eczema type: unspecified Hidradenitis suppurativa L73.2
[2023-06-01 13:11] VITALS: BP 124/69; PULSE 92; BMI 27.0
== END 2023-06-01 13:15 | disposition home or self-care (01) ==
PROVIDERS: PCP Pediatrics; Visit Provider Surgery
DX: L73.2 Hidradenitis suppurativa (principal); L30.9 Dermatitis, unspecified
CPT/HCPCS: 99213

== ENCOUNTER → 2023-06-01 13:01 | Outpatient (BNVA) | payer MEDICAID, SELFPAY | PROVIDERS: PCP Pediatrics; Visit Provider Surgery | DX: L30.9 Dermatitis, unspecified (principal); L73.2 Hidradenitis suppurativa | CPT/HCPCS: 99212 ==

== ENCOUNTER 2023-10-18 15:01 | Outpatient (REF) | payer MEDICAID, SELFPAY ==
[2023-10-18 16:00] LABS: MANUAL DIFF FLAG NO
[2023-10-18 16:06] LABS: Basophils Percent Auto 0.2 % (0-2); Hematocrit 37.2 % (37.0-47.0); Hemoglobin 12.3 g/dl (12.0-16.0); Imm Gran Abs Auto 0.07 X10*3/uL (0.00-0.03); Imm Gran Pct Auto 0.5 % (0.0-0.4); Lymphocytes Absolute Auto 1.2 X10*3/uL (1.2-4.9); Lymphocytes Percent Auto 8.3 % (20-40); Mean Corpuscular HGB Conc 33.1 g/dl (31.0-35.0); Mean Corpuscular Hemoglobin 29.9 pg (27.0-33.0); Mean Corpuscular Volume 90.5 fL (80.0-98.0); Mean Platelet Volume 10.8 fL (9.4-12.3); Monocytes Absolute Auto 0.4 X10*3/uL (0.1-1.2); Monocytes Percent Auto 2.7 % (2-11); Neutrophils Absolute Auto 12.3 x10*3/uL (2.0-8.3); Neutrophils Percent Auto 88.3 % (45-73); Platelet Count 330 X10*3/uL (160-400); Red Blood Count 4.11 X10*6/uL (4.20-5.50); Red Cell Distribution Width 12.7 % (11.0-16.0); White Blood Count 13.9 X10*3/uL (4.8-10.8)
[2023-10-18 16:08] LABS: Prothrombin Time 12.7 SEC (11.1-13.3)
[2023-10-18 16:25] LABS: Alanine Aminotransferase 74 U/L (0-31); Albumin Level 4.4 g/dL (3.5-5.0); Alkaline Phosphatase 58 U/L (39-117); Anion Gap 14 (12-20); Aspartate Amino Transferase 145 U/L (5-31); Bilirubin Direct 0.1 mg/dL (0.0-0.5); Bilirubin Total 0.3 mg/dL (0.0-1.0); Blood Urea Nitrogen 9 mg/dL (9-16); Calcium 10.5 mg/dL (8.4-10.2); Carbon Dioxide 26 mmol/L (22-29); Chloride 103 mmol/L (96-108); Estimated Glomerular Filt Rate > 60; Glucose Random 110 mg/dL (60-115); Iron 22 mcg/dL (30-160); Percent Iron Saturation 7 % (15-50); Sodium 139 mmol/L (135-145); Total Iron Binding Capacity 316 mcg/dL (228-428); Total Protein 7.4 g/dL (6.5-8.0); Unsaturated Iron Binding 294 ug/dL
[2023-10-18 16:41] LABS: Ferritin 16 ng/mL (10-122)
[2023-10-18 16:53] LABS: Vitamin B12 982 pg/mL (200-900)
[2023-10-19 04:30] LABS: HIV AB/AG Nonreactive (Nonreactive); HIV Num 1 0.05 S/CO (0.00-0.99); ~HepC Num1 0.18 S/CO (0.00-0.79); ~Hepatitis C Antibody Nonreactive (Nonreactive)
== END 2023-10-18 15:02 | disposition home or self-care (01) ==
LOC: HO.HHCL 15:01
PROVIDERS: Visit Provider Emergency Medicine
DX: F10.20 Alcohol dependence, uncomplicated (principal)
CPT/HCPCS: 36415; 80048; 80076; 82607; 82728; 82746; 83540; 85025; 85610; 86803; 87389

== ENCOUNTER 2023-10-21 17:48 | Outpatient (REF) | payer MEDICAID, SELFPAY ==
[2023-10-22 05:31] LABS: CT PCR NOT DETECTED (Not Detect.); NG PCR NOT DETECTED (Not Detect.)
== END 2023-10-21 17:49 | disposition home or self-care (01) ==
LOC: HO.HHCLNP 17:48
PROVIDERS: Visit Provider Internal Medicine
DX: Z11.3 Encounter for screening for infections with a predominantly sexual mode of transmission (principal)
CPT/HCPCS: 87491; 87591

== ENCOUNTER → 2025-01-22 08:45 | Outpatient (BNV) | payer MEDICAID, SELFPAY | PROVIDERS: PCP Family Medicine; Visit Provider Internal Medicine | DX: Z12.31 Encounter for screening mammogram for malignant neoplasm of breast (principal) | CPT/HCPCS: 77063; 77067 ==

== ENCOUNTER 2025-01-22 08:49 | Outpatient (REF) | payer MEDICAID, SELFPAY ==
--- NOTE | ~2025-01-22 | MM_ITS ---
EXAMINATION: MM SCREENING DIGITAL BREAST TOMOSYNTHESIS, BILATERAL CLINICAL INFORMATION: Screening. Asymptomatic. COMPARISON: Mammography: Comparison is made with available priors TECHNIQUE: Digital breast mammography with tomosynthesis is performed in both the craniocaudal and mediolateral oblique views along with computer-aided detection (CAD). FINDINGS: There are scattered areas of fibroglandular density. There are no significant masses, abnormal calcifications, or other abnormalities. MM/MM tomosynthesis screening BI IMPRESSION: No mammographic evidence of malignancy. ASSESSMENT: BI-RADS Category 1: Negative RECOMMENDATION: Routine annual mammography screening. 1 year F/U This examination should not preclude the clinical evaluation of a suspicious palpable abnormality. This patient's information was entered into a reminder system with a target due date for their next mammogram. Electronically signed by: Jayla Kiran DO 01/22/2025 03:51 PM EDT
--- OUTSIDE RECORDS SUMMARY | 2025-01-22 09:16 | XMS_ITS | Clinical Summary ---
Author Organization [employer] Address [address] [place] [address] Care Team Providers Care Participant Administrator Name Role Phone Shanita King MD Primary Care Provider [phone] Logan Morfin Unavailable Unavailable Allergies No known active allergies Medications * This document contains information received from the source organization and may not represent a complete record from that organization. betamethasone valerate (Valisone) 0.1 % creamIndications :Eczema, unspecified type Apply topically if needed in the morning and at bedtime (dryness). 45 g 5 4 Active triamcinolone (Kenalog) 0.1 % creamIndications :Eczema, unspecified type Apply topically 2 times daily. For up to 2 weeks 30 g 4 Active Additional Information Patient not taking.Reported on 10/01/2024 Blood Pressure Monitor misc Check BP daily 1 each 4 Active Sodium Fluoride 1.1 % creamIndications :Dental caries [place] teeth for 2 minutes, morning and night. Spit, do not rinse. Do not eat or drink anything for 30 minutes following use. 112 g 3 5 Active LORazepam (Ativan) 0.5 MG tablet Take 1 tablet by mouth once a day as needed for panic attack. Maximum 15 tabs per month. 15 tablet 5 Active Active Problems Problem Noted Date Diagnosed Date Cannabis use disorder 03/20/2024 History of laparoscopic cholecystectomy 03/08/20 24 History of trichomoniasis 03/08/2024 Elevated BP without diagnosis of hypertension Assessment & Plan (2024 5:06 PM EDT): -Goal BP < 130/80 per ACC/AHA guideline (Treatment threshold >=140/90) -BP elevated today in a setting of prednisone use, and anxiety -Continue working on lifestyle modifications -Recommended self-monitoring BP. -No longer consuming alcohol more than sensible limit -If persistently elevated, start either amlodipine 2.5 mg daily or olmesartan with contraception. Assessment & Plan (02/12/2024 4:42 PM EST): -Goal BP < 140/90 per JNC-8 and < 130/80 per ACC/AHA guideline (Treatment threshold >=140/90) -BP elevated today in a setting of AUD, prednisone use, and anxiety -Continue working on lifestyle modifications -Recommended self-monitoring BP. -Schedule for BP check. If persistently elevated, start either amlodipine 2.5 mg daily or olmesartan with contraception. Mass overlapping multiple quadrants of left [address] 10/21/2023 Assessment & Plan (10/21/2023 2:24 PM EDT): It seems to be associated ot axillary infection, either a LN or a small abscess? Rx with doxy, if not improved, may need left mammo and US. Advised to use heat to affected area, avoid squeezing nipple. tests is neg, patient reassured that it is not related Appt with PCP in 3-4w or earlier prn. Axillary hidradenitis suppurativa 10/21/2023 Assessment & Plan (10/21/2023 10:02 AM EDT): Rx doxycycline x 10d, may need extended rx if more recurrent. Advised to use anti pre spirant deodorant or topical MOM instead Avoid pocking on lesions. CORTEZ (generalized anxiety disorder) 10/04/2023 Assessment & Plan (2024 5:19 PM EDT): - CORTEZ-7 score was 17 in October 2024 - following with integrated behavioral health service clinician - previously tried medications: buspirone; bupropion; paroxetine; aripiprazole; Latuda; venlafaxine; hydroyzine - agreed to prescribe lorazepam for panic attack 15 tabs per month Assessment & Plan (02/12/2024 4:35 PM EST): - following with integrated behavioral health service clinician - start paroxetine per patient's request Hearing loss of left ear due to cerumen impactio n 08/09/2022 Assessment & Plan (08/09/2022 12:37 PM EDT): -Will irrigate ear today Left ear impacted cerumen 08/09/2022 Dental caries 06/10/2022 PTSD (post-traumatic stress disorder) 06/01/2022 Assessment & Plan (10/10/2023 2:27 PM EDT): Presented with flashbacks, nightmares, sensation of being watched. Trauma history including childhood trauma. NIDIA, severe alcohol abuse including detox stays. Did much better with support of AUD program and Naltrexone. Hx cocaine, MJ. Did not notice any improvement (and ?worsened mood swings?) with Venlafaxine 75 mg x 1 month so stopped. Bipolar features: Mood swings, racing thoughts, difficulty focusing on projects. Pt recently gave to a healthy baby girl in August 2023. She is not , does have support at home. Has been feeling very anxious, with some panic attacks and having intrusive thoughts of her mother. Previously did not have improvement with Abilify. Sedating medications such as Seroquel would not be appropriate with a new baby at home. Therefore she will have Lurasidone (Latuda) 20 mg starting dose once daily, taken with food. PA will be submitted for this medication. May continue Hydroxyzine 50 mg prn anxiety. She will F/U with [facility] clinician as usual. Since this provider will be retiring, patient will be referred urgently to new [facility] psychiatric prescriber. Pt is aware that appts will be via televisit, and that provider will not be an employee of [facility]. She gives permission to share PHI. Any issues or concerns, contact [facility]. All her questions were answered. She agrees with the plan. Assessment & Plan (04/28/2023 4:33 PM EST): Presented with flashbacks, nightmares, sensation of being watched. Trauma history including childhood trauma. NIDIA, severe alcohol abuse including detox stays. Did much better with support of AUD program and Naltrexone. Hx cocaine, MJ. Did not notice any improvement (and ?worsened mood swings?) with Venlafaxine 75 mg x 1 month so stopped. Bipolar features: Mood swings, racing thoughts, difficulty focusing on projects. Pt is (EDC August 2023), being followed by [facility] OB, depression is controlled but still feeling quite anxious. Her OB advised that it would be OK for her to take Hydroxyzine 50 mg prn anxiety, and she has been doing so with good relief. Does not feel she needs additional medication at this time. On01/27/2023 provider informed pt that I would be retiring, and we would make every effort ensure smooth transition of care. Has been referred for for counseling. F/U with me in 2 months. She agrees with the plan. Assessment & Plan (02/28/2023 4:31 PM EST): Presented with flashbacks, nightmares, sensation of being watched. Trauma history including childhood trauma. NIDIA, severe alcohol abuse including detox stays. Did much better with support of AUD program and Naltrexone. Hx cocaine, MJ. Did not notice any improvement (and ?worsened mood swings?) with Venlafaxine 75 mg x 1 month so stopped. Bipolar features: Mood swings, racing thoughts, difficulty focusing on projects. Pt is , being followed by [facility] OB, depression is controlled but still feeling quite anxious. Unfortunately there are limited options for anxiety treatment in for pt intolerant of antidepressant. Seroquel may be more helpful for anxiety than her current Abilify. Will trial Seroquel 25 mg starting 1/2 tab at bedtime, then increase to a full tab at bedtime. She will continue Abilify 20 mg daily. She will F/U with OB as usual, and may discuss with them whether it would be safe to take Hydroxyzine once in a while, as she would like to do. On01/27/2023 provider informed pt that I would be retiring within the next year or so, and suggested she request referral to [facility] psychiatric prescriber. Has been referred for for counseling. F/U with me in 1 month. She agrees with the plan. Assessment & Plan (01/27/2023 4:08 PM EDT): Presented with flashbacks, nightmares, sensation of being watched. Trauma history including childhood trauma. NIDIA, severe alcohol abuse including detox stays. Did much better with support of AUD program and Naltrexone. Hx cocaine, MJ. Did not notice any improvement (and ?worsened mood swings?) with Venlafaxine 75 mg x 1 month so stopped. Bipolar features: Mood swings, racing thoughts, difficulty focusing on projects. Pt is , being followed by [facility] OB, Feeling quite anxious, but unfortunately there are limited options for anxiety treatment in for pt intolerant of antidepressant. She will continue Abilify 20 mg daily. Today 01/27/2023 provider informed pt that I would be retiring within the next year or so, and suggest she request referral to [facility] psychiatric prescriber. Has been referred for for counseling. F/U with me in 1 month. She agrees with the plan. Assessment & Plan (01/03/2023 4:28 PM EDT): Presented with flashbacks, nightmares, sensation of being watched. Trauma history including childhood trauma. NIDIA, severe alcohol abuse including detox stays. Did much better with support of AUD program and Naltrexone. Hx cocaine, MJ. Did not notice any improvement (and ?worsened mood swings?) with Venlafaxine 75 mg x 1 month so stopped. Bipolar features: Mood swings, racing thoughts, difficulty focusing on projects. Pt recently discovered she is , plans to continue the and has first OB appt upcoming at [facility]. Has stopped the Trazodone and Hydroxyzine, and will remain off those. Feeling quite anxious with catastrophizing. Will increase to Abilify 20 mg daily. Limited options for anxiety treatment in for pt intolerant of antidepressant. Will also refer for counseling. F/U with me in 3 weeks. She agrees with the plan. Assessment & Plan (08/26/2022 11:01 AM EDT): Presented with flashbacks, nightmares, sensation of being watched. Trauma history including childhood trauma. NIDIA, severe alcohol abuse including detox stays. Doing better with support of AUD program and Naltrexone, plans to resume Vivitrol. Daily marijuana use. Intermittent cocaine use. Follows with [facility] clinician Brian Naranjo and personal development coach. Did not notice any improvement (and ?worsened mood swings?) with Venlafaxine 75 mg x 1 month so stopped. Bipolar features: Mood swings, racing thoughts, difficulty focusing on projects. No longer having nightmares, but not sleeping well. Will now increase to Trazodone 150 mg at bedtime. Stop Prazosin. Tolerating starting dose of Abilify 5 mg without noticeable improvement. Will now increase to Abilify 10 mg daily. Continue F/U with AUD program and [facility] Clinician. F/U with me in 4-6 weeks. She agrees with the plan. Assessment & Plan (08/09/2022 12:36 PM EDT): -Following with Logan Morfin -Continue Abilify, Trazodone, Hydroxyzine Assessment & Plan (07/29/2022 9:38 AM EDT): Presented with flashbacks, nightmares, sensation of being watched. Trauma history including childhood trauma. NIDIA, severe alcohol abuse including detox stays. Doing better with support of AUD program and Naltrexone, plans to resume Vivitrol. Daily marijuana use. Intermittent cocaine use. Follows with [facility] clinician Brian Naranjo and personal development coach. Did not notice any improvement with Venlafaxine 75 mg x 1 month so stopped. Taking Trazodone 100 mg at bedtime with improved sleep. No longer having nightmares. Bipolar features: Mood swings, racing thoughts, difficulty focusing on projects. Reviewed the risks associated with benzos such as Ativan, including habituation. Urged not to take meds prescribed for others. Will start Abilify 5 mg once daily as mood stabilizer. Reviewed that this was a relatively low dose and she might not notice much effect right away, but if tolerated urged to continue daily. Continue F/U with AUD program and F/U with me in 3 weeks. She agrees with the plan. Assessment & Plan (06/22/2022 12:28 PM EDT): Unable to perform full visit today. Will reschedule for short-term F/U. No change in medications at this time. Assessment & Plan (06/01/2022 11:21 AM EST): With flashbacks, nightmares, sensation of being watched. Trauma history including childhood trauma. NIDIA, severe alcohol abuse including detox stays, doing better with support of AUD program and Vivitrol. Daily marijuana use. Intermittent cocaine use. Reviewed with patient that counseling would be an important part of her treatment plan, suggest accessing [facility] for intake. She has reasonable insight, so would likely benefit from good trauma-informed therapy. Reviewed the effect of MJ and cocaine on worsening of anxiety, urged to consider her use. Has not had good response to Hydroxyzine, or Prozac, but likely did not have an adequate trial. Record includes Trazodone, but unclear if she is actually taking this. At this time will start Venlafaxine 75 mg once daily with food. Reviewed that this was a relatively low dose and she might not notice much effect right away, but if tolerated urged to continue daily. Will also have Prazosin 1 mg at bedtime for nightmares. Explained that my objective was for her to start feeling better as soon as possible. We would meet frequently at first, so if she needed to miss an appointment please call to reschedule. If multiple missed appointments might not be able to continue receiving prescriptions, but case would not be closed. To further evaluate fatigue, will have labs for CBCD. Urged to F/U for dental care. F/U with me in 3 weeks. All her questions were answered. She agrees with the plan. Moderate episode of recurren t major depressive disorder ([facility]) 04/27/2022 Assessment & Plan (2024 5:19 PM EDT): - PHQ-9 score 14 in October 2024 - following with integrated behavioral health service clinician - previously tried medications: buspirone; bupropion; paroxetine; aripiprazole; Latuda; venlafaxine; hydroyzine - patient declined a new medication at this time Assessment & Plan (02/12/2024 4:35 PM EST): - following with integrated behavioral health service clinician - will try paroxetine Assessment & Plan (10/26/2022 11:29 AM EDT): Assessment: Vesta was engaged with active reflective listening and open-ended questions. Assessed symptoms, risks, and social supports with direct questions. Discussed current symptoms intensity and frequency. Emotions were normalized and validated. She identified exercise as coping mechanisms and her children as protective factors. Provided psychoeducation around coping mechanisms to manage addiction. Discussed OP therapy she declined to be referred to OP services at this time. Provided education around integrated medicine and the options of follow up BE's as needed. Provided contact information should questions or concerns arise. Plan: Vesta will continue to engage in effective coping mechanisms that has worked for her so far and will implements the new one. She will continue to meet with me during her AUD appts. At this time Vesta Medeiros meets criteria for Visit Diagnoses: Problem List Items Addressed This Visit Other Mixed anxiety and depressive disorder Patient ready to address current needs No Strengths include resilience PLAN: 1. Follow up with [facility] [place]: Recommended for follow-up: during AUD appts 2. Patient goal is to maintain sobriety 3. Behavioral Recommendations a. [facility] follow up b. Use of coping mechanisms c. Keep Mat appts and communication with -MR Assessment & Plan (10/01/2022 12:13 PM EDT): Assessment: Vesta was engaged with active reflective listening and open-ended questions. Assessed symptoms, risks, and social supports with direct questions. Discussed current symptoms intensity and frequency. Emotions were normalized and validated. She identified coloring, exercise as coping mechanisms and her children as protective factors. Discussed OP therapy, she continues to declined referral Ind. Therapy Provided education around integrated medicine and the options of follow up BE's as needed. Provided contact information should questions or concerns arise. Plan: Vesta will continue to engage in effective coping mechanisms that has worked for her in the past. She will continue to meet with me during her AUD appts. Patient with little interest at times, feeling down at times, trouble with sleeping, low self-esteem at times, trouble with concentration at times, feeling anxious, persistent worry, trouble relaxing, restlessness, She denies SI, HI, or self- harm. 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 Reported had a drink yesterday, but was able to stop after that one, then got herself a sury maría. Friend told her she would pay her one, and she declined. She stated is not planning to do that again. Patient will benefit from continuation of f/u with this fiction and nonfiction writer prose. At this time Vesta Medeiros meets criteria for Visit Diagnoses: Problem List Items Addressed This Visit Other Mixed anxiety and depressive disorder Alcohol dependence with uncomplicated withdrawal (CMS/HCC) Patient ready to address current needs No Strengths include Stephanie is aware of her sxs, but is not ready ot engage in [place] [facility] therapy at this time. PLAN: 1. Follow up with [facility] [place]: Recommended for follow-up: during AUD appt 2. Patient goal is maintain sobriety and get a mentally stable to improve functionality. 3. Behavioral Recommendations a. Using Coping mechanisms discussed b. Keep Med. Management appt c. [facility] for support as needed. Assessment & Plan (09/03/2022 12:45 PM EDT): Assessment: Vesta was engaged with active reflective listening and open-ended questions. Assessed symptoms, risks, and social supports with direct questions. Discussed current symptoms intensity and frequency. Emotions were normalized and validated. Vesta identified going to gym, coloring as coping mechanisms and protective factors. Provided psychoeducation around Aroma therapy and the benefits to manage anxiety and depressive sxs. Continues to declined interest in a therapist, but is engaged in Medication Management with Logan Morfin upcoming appt 10/07/22. Provided education around integrated medicine and the options of follow up BE's as needed. Provided contact information should questions or concerns arise. Plan:Vesta will continue to engage in effective coping mechanisms that better fit her and will try aroma therapy. I also encouraged her to try Mindfulness Tuesday Program at [facility], provided her with the flyer in case she is interested. She will keep her Medication management appt and will continue follow up with me. Patient with ow mood at times, insomnia, little energy, low self esteem at times, trouble concentrating, feeling anxious, persistent worry, trouble relaxing, restlessness, irritability, fearful of something bad would happen. She denies SI, HI, GRANT, hallucinations or self-harm. Has been able to maintain her sobriety for 2 months. Patient will benefit from Individual therapy. At this time Vesta Medeiros meets criteria for Visit Diagnoses: Problem List Items Addressed This Visit Other Alcohol dependence with uncomplicated withdrawal (CMS/HCC) Patient ready to address current needs No Strengths include Stephanie is aware of her sxs, but is not ready ot engage in [place] [facility] therapy at this time. PLAN: 1. Follow up with [facility] [place]: Recommended for follow-up: during AUD appt 2. Patient goal is maintain sobriety and get a mentally stable to improve functionality. 3. Behavioral Recommendations a. Using Coping mechanisms discussed b. Keep Med. Management appt c. [facility] for support as needed. Alcohol use disorder 04/27/2022 Assessment & Plan (2024 5:08 PM EDT): - previously following with Dr. [facility] AUD clinic - no longer drinking alcohol excessively Assessment & Plan (02/12/2024 4:36 PM EST): - following with Dr. [facility] AUD clinic - continue current Tx plan per Dr. Maher Assessment & Plan (10/10/2023 2:28 PM EDT): She will F/U with [facility] AUD program, with medication: Naltrexone and Gabapentin, group support, and recovery coaching, but [facility] clinician. Assessment & Plan (10/05/2023 8:13 AM EDT): PROGRESS NOTE: ID: Vesta is a 37 y.o. White don't know-identified cis-female with previous documented hx of Depression, Anxiety, and Alcohol Use Disorder No previous hx of MH services who presents for Depression, Anxiety, and Substance Use Disorder During IBH Consult Vesta presenting with depressed mood, loss of interests/pleasure , changes in sleep difficulty falling asleep and difficulty staying asleep , change in appetite or weight reduce appetite, psychomotor agitation, trouble concentrating, fatigue/loss of energy, worthlessness , excessive worry/anxiety, easily fatigued, difficulty concentrating/Mind going blank , irritability, muscle tension, and sleep disturbance difficulty falling asleep and difficulty staying asleep , and unsuccessful attempt/s to cut down/stop use, cravings and urges to use, continued use despite physical or psychological problem (potentially related or made worse by use) , tolerance , in regard to Alcohol; for a period of 18+ mo, for some symptoms in the context of relapse on alcohol use back on August 2023. Vesta presented in good mood, she has been able to maintain sobriety for 10 days and has been participating from the peer support group on Tuesdays. She identify need of services and has agreed to engage in Ind. Therpay with this fiction and nonfiction writer prose. We discussed how feeling and emotions has lead to her relapse and also discussed different ways to manage cravings. Vesta was engaged and receptive during session. She will continue to use effective coping mechanisms such as going to the gym, spending time with her children and partner and will take medication as prescribed. PLAN: Behavioral Health Integration Plan Internal Follow up with [facility] Patient Self Plan Patient to utilize skills provided in intervention , Patient to reach out to [facility] team as needed, Comply with medication , Patient to engage in OP therapy , and Patient to reach out to [facility] as needed Assessment & Plan (10/01/2022 12:14 PM EDT): Assessment: Vesta was engaged with active reflective listening and open-ended questions. Assessed symptoms, risks, and social supports with direct questions. Discussed current symptoms intensity and frequency. Emotions were normalized and validated. She identified coloring, exercise as coping mechanisms and her children as protective factors. Discussed OP therapy, she continues to declined referral Ind. Therapy Provided education around integrated medicine and the options of follow up BE's as needed. Provided contact information should questions or concerns arise. Plan: Vesta will continue to engage in effective coping mechanisms that has worked for her in the past. She will continue to meet with me during her AUD appts. Patient with little interest at times, feeling down at times, trouble with sleeping, low self-esteem at times, trouble with concentration at times, feeling anxious, persistent worry, trouble relaxing, restlessness, She denies SI, HI, or self- harm. 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 Reported had a drink yesterday, but was able to stop after that one, then got herself a sury maría. Friend told her she would pay her one, and she declined. She stated is not planning to do that again. Patient will benefit from continuation of f/u with this fiction and nonfiction writer prose. At this time Vesta Medeiros meets criteria for Visit Diagnoses: Problem List Items Addressed This Visit Other Mixed anxiety and depressive disorder Alcohol dependence with uncomplicated withdrawal (CMS/HCC) Patient ready to address current needs No Strengths include Stephanie is aware of her sxs, but is not ready ot engage in [place] [facility] therapy at this time. PLAN: 1. Follow up with [facility] [place]: Recommended for follow-up: during AUD appt 2. Patient goal is maintain sobriety and get a mentally stable to improve functionality. 3. Behavioral Recommendations a. Using Coping mechanisms discussed b. Keep Med. Management appt c. [facility] for support as needed. Assessment & Plan (08/18/2022 1:20 PM EDT): Assessment:Vesta was engaged with active reflective listening and open-ended questions. Assessed symptoms, risks, and social supports with direct questions. Discussed current symptoms intensity and frequency. Emotions were normalized and validated. She identified exercise as coping mechanisms and her children as protective factors. Provided psychoeducation around the power of personal choice and behavioral activation. Discussed OP therapy , Vesta inform me that she is not ready to engage with other therapist at this time, prefers remained engaged with this fiction and nonfiction writer prose. Provided education around integrated medicine and the options of follow up BE's as needed. Provided contact information should questions or concerns arise. Plan: Vesta will continue to engage in effective coping mechanisms that has work for her and will integrate behavioral activation exercises. She will continue to meet with this fiction and nonfiction writer prose during her OBAT appts, she will inform me once she is ready for Ind. Therapy. Patient doing well denies cravings, drinking thoughts, and has maintain sobriety for a month in the context of living next to a liquor, and family stressors. Patient will benefit from Ind. Therapy for AUD, using TX. At this time Vesta Medeiros meets criteria for Visit Diagnoses: Problem List Items Addressed This Visit Other Alcohol dependence with uncomplicated withdrawal (CMS/HCC) Patient ready to address current needs Not ready to engage with other therapist at this time. Strengths include willingness, motivation, resilience. PLAN: 1. Follow up with [facility] [place]: during next OBAT appt 2. Patient goal is maintain her sobriety. 3. Behavioral Recommendations a. Vesta will remind connected with -MR eleanor. She will keep her AUD appts c. She will remained engage with this fiction and nonfiction writer prose for support. Assessment & Plan (08/09/2022 12:38 PM EDT): -Following with Dr. Maher -continue Naltrexone -continue Gabapemtim -Continue Behavioral Health Services Assessment & Plan (04/27/2022 4:58 PM EST): - following with Dr. Maher' - s/p Detox - started Vivitrol on 04/20/22 - continue current recovery support (working with [facility] clinician and ) - encouraged to come to a support group Tobacco use disorder 04/27/2022 Assessment & Plan (2024 5:14 PM EDT): - Patient is cutting down smoking - Continue smoking cessation effort Assessment & Plan (02/07/2024 9:59 AM EST): - Patient is cutting down smoking - Continue smoking cessation Assessment & Plan (08/09/2022 12:32 PM EDT): Patient is cutting down smoking Continue smoking cessation Assessment & Plan (04/27/2022 4:59 PM EST): - continue bupropion Dental disease 04/27/2022 Assessment & Plan (04/27/2022 5:00 PM EST): - continue dental care with current dentist - will prescribe amoxicillin or doxycycline if pt is having recurrent dental / gingival infection. Eczema 04/27/2022 Assessment & Plan (2024 5:13 PM EDT): - patient has been taking non-prescribed systemic steroid for flare-up - discouraged taking non-prescribed prednisone - refer to treatment specialist for biologic treatment - refer to Derm Assessment & Plan (02/12/2024 4:17 PM EST): - patient initially requested prednisone script, but agreed not to depend on its use after discussing about its side effect with chronic use - upcoming Derm clinic appointment; consider biologic to avoid systemic steroid use Assessment & Plan (10/13/2023 9:52 AM EDT): Patient was already referred to dermatology appointment cancel, I instructed to call to re-schedule Triamcinolone 0.1% use on face BID no more than 2 weeks Betamethasone ointment use BID on body areas no more than 2 weeks Mix triamcinolone with cera-v to use daily on her body after showers Prednisone taper to be done this time until she engages with dermatology Assessment & Plan (04/27/2022 5:03 PM EST): - fluocinonide cream Vitamin B12 deficiency 04/27/2022 Assessment & Plan (02/12/2024 4:15 PM EST): - In setting of alcohol use disorder - Will check lab - patient perceives that it will help her energy level because it did so for her mother (B12 level has been normal) Assessment & Plan (08/09/2022 12:38 PM EDT): In setting of previous alcohol use disorder Will check lab If still low, will start Vit B12 injections, which patient prefers Assessment & Plan (04/27/2022 5:04 PM EST): - likely due to excessive ETOH intake - continue vitamin B12 and folate Resolved Problems Problem Noted Date Diagnosed Date Resolved Date depression 02/12/20242024 Assessment & Plan (02/12/2024 4:40 PM EST): - refer to care management to assess her needs - recommended to ask her DCF worker for respite program (patient needs her own time to take care of herself) Hordeolum externum of left upper eyelid 10/13/2023 2024 Overweight 08/09/2022 02/12/2024 Assessment & Plan (08/09/2022 12:38 PM EDT): Patient is exercising and regulating her weight Dental abscess 06/10/2022 2024 Anxiety 04/27/2022 07/29/2022 Assessment & Plan (04/27/2022 4:48 PM EST): - continue BHS with current clinician - waiting for an appt for psych med consult - addition of SSRI was recommended by psych client service consultant - start fluoxetine 10 mg daily - continue bupropion for tobacco use - continue hydroxyzine prn - continue trazodone - recommended acupuncture; pt will come tomorrow Mood disorder 04/27/2022 02/16/2024 Assessment & Plan (02/12/2024 4:34 PM EST): - previously diagnosed with bipolar disorder and PTSD by Logan, psych client service consultant - patient also has Dx MDD and CORTEZ by current integrated behavioral health clinician - previously prescribed Lurasidone by Logan, but she became and it was discontinued - patient has tried buspirone and hydroxyzine which were ineffective; patient was prescribed gabapentin for AUD - patient is interested in trying paroxetine; agreed to prescribe. Reviewed precautions as she has Dx of bipolar disorder. - upcoming appointment with a new psych prescriber - continue following with behavioral health service provider and Dr. Maher Assessment & Plan (04/27/2022 5:02 PM EST): - differential diagnosis includes bipolar disorder - waiting for psych consult - starting low dose SSRI with caution Encounters * This document contains information received from the source organization and may not represent a complete record from that organization. Date Type Department Care Team Description 12/04/2024 Telephone [facility] [address] [place] [address] Lucila Goode RN 11/26/2024 9:30 AM EDT Office Visit [facility] [address] [place], [place] [phone] Shanita King MD Encounter for screening for respiratory tuberculosis (Primary Dx); Breast cancer screening by mammogram; Elevated BP without diagnosis of hypertension; Eczema, unspecified type; Alcohol use disorder; CORTEZ (generalized anxiety disorder); Moderate episode of recurrent major depressive disorder (CMS/HCC); PTSD (post-traumatic stress disorder); Tobacco use disorder 11/26/2024 Travel 11/23/2024 Telephone [facility] [address] [place] [address] Shanita King MD CHART PREP 11/19/2024 Patient Outreach [facility] [address] [place] [address] Shanita King MD Pre-visit Planning ([facility] unable to reach [facility] ) from Last 3 Months Immunizations Immunization Administration Dates Next Due Hep A, Adult 02/05/2022,07/31/2021 Hep B, adult 01/29/2022,09/11/2021,07/31/2021 Influenza injectable quadriv alent preservative free 01/29/2022 Influenza, IIV3, injectable 01/25/2023 MMR 07/31/2023 Tdap 05/18/2023,09/29/2021 Family History Medical History Relation Name Comments Cancer Father father had bloo d cancer; paternal side of family has breast cancer Relation Name Status Comments Father Social History Tobacco Use Types Packs/Day Years Used Date Smoking Tobacco: Some Days Cigarettes 0.5 0.5 Passive Smoke Exposure: Current Smokeless Tobacco: Never Tobacco Cessation:Ready to Q uit: Not Asked; Counseling Given: Not Answered Alcohol Use Standard Drinks/Week Comments Not Currently 1 (1 standard drink = 0.6 oz pur e alcohol) Alcohol Answer Date Recorded How often do you have a drink containing alcohol ? 3 11/25/2023 How many drinks containing a lcohol do you have on a typical day when you are drinking? 1 11/25/2023 How often do you have six or more drinks on one occasion? 3 11/25/2023 Depression Answer Date Recorded Patient Health Questionnaire-9 Score 15 12/24/2024 Patient Health Questionnaire-9 Score 15 12/24/2024 Last PHQ-9: Questionnaire Data Not on file 0 12/24/2024 Housing Stability Answer Date Recorded What is your housing situation today? I have housing today, but I am worried about losing housing in the future 05/16/[address] you li ve. Do you have problems with any of the following? Pests such as bugs, ants, or mice 05/16/2024 Food Insecurity Answer Date Recorded Within the past 12 months, y ou worried that your food would run out before you got money to buy more: Never True 08/01/2023 Within the past 12 months,th e food you bought just didn't last and you didn't have enough money to get more: Never True Transportation Answer Date Recorded In the past 12 months, has l ack of transportation kept you from medical appts, meetings, work or from getting things needed for daily living? No 08/01/2023 Utilities Answer Date Recorded In the past 12 months, has t he electric, gas, oil or water company threatened to shut off services in your home? Yes 05/16/2024 Depression Answer Date Recorded Patient Health Questionnaire-2 Score 4 12/24/2024 Internet Access Answer Date Recorded Internet Access Q1 Yes 01/26/2024 Internet Access Q2 Not on file 01/26/2024 Comments No Sex and Gender Information Value Date Recorded Sex Assigned at Female 02/01/2022 10:38 AM EDT Legal Sex Female 10:38 AM EDT Gender Identity Female 02/01/2022 10:38 AM EDT Sexual Orientation Don't know 02/01/2022 10 :38 AM EDT Last Filed Vital Signs Vital Sign Reading Time Taken Comments Blood Pressure 136/80 11/26/2024 9:45 AM EDT Pulse 106 11/26/2024 9:45 AM EDT Temperature 36.2 C (97.1 F) 11/26/2024 9:45 AM EDT Respiratory Rate 17 11/26/2024 9:45 AM EDT Oxygen Saturation 100% 11/26/2024 9:45 AM EDT Inhaled Oxygen Concentration - - Weight 71.8 kg (158 lb 6.4 oz) 11/26/2024 9:45 A M EDT Height 172.7 cm (5' 8 ) 11/26/2024 9:45 AM EDT Body Mass Index 24.08 11/26/2024 9:45 AM EDT Plan of Treatment Upcoming Encounters Date Type Department Care Team (Late st Contact Info) Description 02/11/2025 3:00 PM EST Office Visit [facility] [address] [place] [address] Shanita King MD [address] [place] [address] Health Maintenance Due Date Last Done Comments Dental X-Ray: Bitewings 1983 Lipid Panel 1983 Family Planning (PISQ) 12/02/1998 HPV Vaccines (1 - 3-dose series) 12/02/1998 Pneumococcal Vaccine: Pediatrics (0 to 5 Years) and At-Risk Patients (6 to 49) Years (1 of 2 - PCV) 12/02/2002 Mammogram 2023 10/31/2020 COVID-19 Vaccine (2 - 2024-2 6 season) 2024 01/29/2022 Influenza Vaccine (#1) 2024 , 01/29/2022 Dental Oral Exam 03/14/2025 09/11/2024, 08/11/2022 Dental Prophylaxis 03/14/2025 09/11/2024, 09/15/2022 Dental X-Ray: Full Mouth 04/10/2025 04/09/2022 SDOH Screening 05/16/2025 05/16/2024 Depression Monitoring 06/23/2025 12/24/2024 , 12/24/2024 Alcohol/Substance Use Screening 11/26/2025 11/26/2024 Disability Screening 11/26/2025 11/26/2024 Tobacco Screening 2025 2024 Cervical Cancer Screening 01/26/2028 HPV/Cotest 01/26/2028 01/25/2023 Pap Smear 01/26/2028 01/25/2023 DTaP/Tdap/Td Vaccines (3 - T d or Tdap) 05/18/2033 05/18/2023, 09/29/2021 Zoster Vaccines (1 of 2) 12/02/2033 RSV Patients and Patients Aged 60 years or older (1 - 1-dose 75+ series) 12/02/2058 Hepatitis B Vaccines Completed 01/29/2022, 09/11/2021, 07/31/2021 Hepatitis A Vaccines Aged Out 02/05/2022, 07/31/2021 No longer eligible based on patient's age to complete this topic HIV Screening Completed 10/18/2023, 07/24/2021 Hepatitis C Screening Completed 10/18/2023 , 07/24/2021 HIB Vaccines Aged Out No longer eligi ble based on patient's age to complete this topic IPV Vaccines Aged Out No longer eligi ble based on patient's age to complete this topic Meningococcal B Vaccine Aged Out No l onger eligible based on patient's age to complete this topic Meningococcal Vaccine Aged Out No quang junaid eligible based on patient's age to complete this topic RSV under 20 months Aged Out No longe r eligible based on patient's age to complete this topic Rotavirus Vaccines Aged Out No longer eligible based on patient's age to complete this topic Procedures Procedure Name Priority Date/Time Associated Diagnosis Comments PROPHYLAXIS - ADULT Routine 09/11/2024 2 :30 PM EDT Dental caries Gingivitis PERIODIC ORAL EVALUATION - ESTABLISHED PATIENT Routine 09/11/2024 2:30 PM EDT Dental caries Gingivitis HEPATITIS C AB W/REFL TO HCV RNA, QN, PCR Routine 10/18/2023 3:04 PM EDT Alcohol use disorder, severe, dependence (CMS/HCC) HIV 1/2 ANTIGEN/ANTIBODY, FOURTH GENERATION W/RFL Routine 10/18/2023 3:04 PM EDT Alcohol use disorder, severe, dependence (CMS/HCC) HM PAP/HPV Routine 01/25/2023 PANORAMIC RADIOGRAPHIC IMAGE Routine 04/09/2022 10:00 AM EST MAMMOGRAM GENERIC Routine 10/31/2020 1:0 0 PM EDT from Last 3 Months or Most Recently Relevant to Health Maintenance Results * Hepatitis C Antibody with Reflex to HCV, RNA, Quantitative, Real-Time PCR (10/18/2023 3:04 PM EDT) Hepatitis C Antibody Nonreactive Nonreactive [facility] Comment:Antibodies to HCV no t detected; does not exclude early acuteHCV infection. Blood Venous blood specimen / Unknown 10/18/2023 3:04 PM EDT 10/18/2023 3:56 PM EDT Mauro Maher MD LAB BLOOD ORDERABLES Final Res ult Performing Organization Address [facility] Co de Phone Number [facility] [address] [place] [phone] * HIV-1/2 Antigen and Antibodies, Fourth Generation, with Reflexes (10/18/2023 3:04 PM EDT) HIV AB/AG Nonreactive Nonreactive [facility] Comment:HIV-1 p24 Ag and/or HIV-1/HIV-2 Ab not detected.A test result that is nonreactive does not exclude thepossibility of exposure to or infection with HIV-1 and/orHIV-2. Nonreactive results in this assay for individualswith prior exposure to HIV-1 and/or HIV-2 may be due toantigen and antibody levels that are below the limit ofdetection of this assay.The [employer] HIV Ag/Ab Combo assay result andsupplemental assay results should be interpreted inconjunction with the patient's clinical presentation,history and other laboratory results. If the results areinconsistent with clinical evidence, additional testing issuggested to confirm the result. Blood Venous blood specimen / Unknown 10/18/2023 3:04 PM EDT 10/18/2023 3:56 PM EDT Mauro Maher MD LAB BLOOD ORDERABLES Final Res ult Performing Organization Address [facility]/ZIP Co de Phone Number [facility] [address] [place] [address] [phone] * Hm Pap Smear (01/25/2023) Pap Negative for intraephithelial lesion or malignancy Negative for intraephithelial lesion or malignancy, Other HPV Undetected Undetected, Indeterminate, Quantitative, Not Detected Historical Provider HEALTH MAINTENANCE Final Result * Mammography Report 1 (10/31/2020 1:00 PM EDT) Anatomical Region Laterality Modality Breast Bilateral Mammography 10/31/2020 1:00 PM EDT Narrative 10/31/2020 3:31 PM EDT Refer to the Notes tab for result details [facility] Procedure: Mammography Report 1 Procedure Note Provider, Aram, - 06/27/2022 Refer to the Notes tab for result details [facility] Procedure: Mammography Report 1 Shanita King MD IMG BI PROCEDURES Final Result from Last 3 Months or Most Recently Relevant to Health Maintenance Insurance [facility] C[facility] [employer] ST[employer] ADULT Care Teams Participant Administrator Relationship Specialty Start Date End Date Shanita King MD [address] [place] [address] PCP - General Family Medicine 10/09/20 Logan Morfin FNP [address] [place] [address] Nurse Practitioner Family Medicine 02/21/23
--- OUTSIDE RECORDS SUMMARY | 2025-01-22 09:16 | XMS_ITS | Encounter Summary ---
Author Organization [employer] Address [address] [place] [address] Care Team Providers Care Abrasive Coating Machine Operator Name Role Phone Shanita King MD Primary Care Provider [phone] Logan Morfin Unavailable Unavailable Reason for Visit * Reason Comments Med Refill Encounter Details Date Type Department Care Team ([facility] Contact Info) Description 11/07/2022 Refill [facility] [address] [place] [address] [phone] Mauro Maher MD [address] [place] [address] [phone] Alcohol dependence, uncomplicated (CMS/HCC) Social History Tobacco Use Types Packs/Day Years Used Date Smoking Tobacco: Some Days Cigarettes 0.5 0.5 Passive Smoke Exposure: Current Smokeless Tobacco: Never Alcohol Use Standard Drinks/Week Comments Not Currently 1 (1 standard drink = 0.6 oz pur e alcohol) Comments No Sex and Gender Information Value Date Recorded Sex Assigned at Female 02/01/2022 10:38 AM EDT Legal Sex Female 10:38 AM EDT Gender Identity Female 02/01/2022 10:38 AM EDT Sexual Orientation Don't know 02/01/2022 10 :38 AM EDT documented as of this encounter Plan of Treatment Upcoming Encounters Date Type Department Care Team ([facility] Contact Info) Description 02/11/2025 3:00 PM EST Office Visit [facility] [address] [place] [address] Shanita King MD [address] [place], [place] [phone] documented as of this encounter Visit Diagnoses Diagnosis Alcohol dependence, uncomplicated (CMS/HCC) (HCC) documented in this encounter Additional Health Concerns Assessment Noted Time PHQ-9 Depression Total Score: 8 10/27/19 9:50 AM EDT documented as of this encounter Care Teams Abrasive Coating Machine Operator Relationship Specialty Start Date End Date Shanita King MD [address] [place] [address] PCP - General Family Medicine 10/09/20 Logan Morfin FNP [address] [place] [address] Nurse Practitioner Family Medicine 02/21/23 documented as of this encounter
--- OUTSIDE RECORDS SUMMARY | 2025-01-22 09:16 | XMS_ITS | Encounter Summary ---
Author Organization [employer] Address [address] [place] [address] Care Team Providers Care Cloth Spreader Screen Printing Name Role Phone Shanita King MD Primary Care Provider [phone] Logan Morfin Unavailable Unavailable Reason for Visit * Reason Onset Date Comments Med Refill Appointment 10/07/2022 Encounter Details Date Type Department Care Team (Late st Contact Info) Description 09/27/2022 Refill [facility] [address] [place] [address] Mauro Maher MD [address] [place] [address] Social History Tobacco Use Types Packs/Day Years [...] Don't know 02/01/2022 10 :38 AM EDT COVID-19 Exposure Response Date Recorded In the last 10 days, have yo u been in contact with someone who was confirmed or suspected to have Coronavirus/COVID-19? No / Unsure 09/30/2022 1:32 PM EDT documented as of this encounter Miscellaneous Notes * Telephone Encounter - Mauro Maher MD - 04/04/2023 9:20 AM EST No longer under my care. * Telephone Encounter - Jenny Starks [place] - 10/07/2022 9:16 AM EDT T/C placed to pt regarding her appt for today as [id number]. pt request to cancel and re-schedule, Pt r/s for 11/23/22 @ 9:15am. documented in this encounter Plan of Treatment Upcoming Encounters Date Type Department Care Team (Late st Contact Info) Description 02/11/2025 3:00 PM EST Office Visit [facility] [address] [place] [address] Shanita King MD [address] [place] [address] documented as of this encounter Visit Diagnoses Not on filedocumented in this encounter Additional Health Concerns Assessment Noted Time PHQ-9 Depression Total Score: 11 023 9:47 AM EDT documented as of this encounter Care Teams Cloth Spreader Screen Printing Relationship Specialty Start Date End Date Shanita King MD [address] [place] [phone] PCP - General Family Medicine 10/09/20 Logan Morfin FNP [address] [place] [phone] Nurse Practitioner Family Medicine 02/21/23 documented as of this encounter
--- OUTSIDE RECORDS SUMMARY | 2025-01-22 09:16 | XMS_ITS | Encounter Summary ---
Author Organization [employer] Address [address] [place] [address] Care Team Providers Care Rn Plastic Surgery Name Role Phone Shanita King MD Primary Care Provider [phone] Logan Morfin Unavailable Unavailable Reason for Visit * Reason Onset Date Comments Med Refill Appointment 08/24/2022 Unable to LVM-Re : her appt for today as [id number] @ 10am. Encounter Details Date Type Department Care Team (Late st Contact Info) Description 08/24/[address] [facility] [address] [place] [address] Mauro Maher MD [address] [place] [address] Alcohol dependence, uncomplicated (CMS/HCC) Social History Tobacco Use Types Packs/Day Years Used Date Smoking Tobacco: Some Days Cigarettes 0.5 0.5 Passive Smoke Exposure: Current Smokeless Tobacco: Never Alcohol Use Standard Drinks/Week Comments Yes 1 (1 standard drink = 0.6 oz [...] suspected to have Coronavirus/COVID-19? No / Unsure 08/25/2022 2:40 PM EDT documented as of this encounter Functional Status * Over the past 2 weeks, how often have you been bothered by any of the following problems? Question Answer Date of Assessment Author Patient Health Questionnaire -2 Score 3 08/26/2022 9:51 AM Akila Knowles MA * If you checked off any problems on this questionnaire so far, Question Answer Date of Assessment Author How difficult have these problems made it for you to do your work, take care of things at home, or get along with other people? Not difficult at all 08/26/2022 9:51 AM Gaston Knowles MA * Over the past 2 weeks, how often have you been bothered by any of the following problems? Question Answer Date of Assessment Author Little interest or pleasure in doing things More than half the days 08/26/2022 9:51 AM Jenny Knowles MA Feeling down, depressed, or hopeless Several days 08/26/2022 9:51 AM Jenny Knowles MA Trouble falling or staying asleep, or sleeping too much Several days 08/26/2022 9:51 AM Jenny Knowles MA Feeling tired or having little energy More than half the days 08/26/2022 9:51 AM Jenny Knowles [place] Poor appetite or overeating Not at all 08/26/2022 9:51 AM Jenny Knowles MA Feeling bad about yourself - or that you are a failure or have let yourself or your family down Several days 08/26/2022 9:51 AM Jenny Knowles MA Trouble concentrating on things, such as reading the newspaper or watching television Nearly every day 08/26/2022 9:51 AM Jenny Knowles MA Moving or speaking so slowly that other people could have noticed? Or the opposite - being so fidgety or restless that you have been moving around a lot more than usual. Not at all 08/26/2022 9:51 AM Jenny Knowles MA Thoughts that you would be better off or hurting yourself in some way Not at all 08/26/2022 9:51 AM EDT Jenny Starks MA Patient Health Questionnaire-9 Score 10 08/26/2022 9:51 AM EDT Jenny Starks MA documented as of this encounter Miscellaneous Notes * Telephone Encounter - Mauro Maher MD - 08/25/2022 10:51 AM EDT Rx sent. Thank you for the reminder! documented in this encounter Plan of Treatment Upcoming Encounters Date Type Department Care Team (Late st Contact Info) Description 02/11/2025 3:00 PM EST Office Visit [facility] [address] [place] [phone] Shanita King MD [address] [place] [phone] documented as of this encounter Visit Diagnoses Diagnosis Alcohol dependence, uncomplicated (CMS/HCC) (HCC) documented in this encounter Additional Health Concerns Assessment Noted Time PHQ-9 Depression Total Score: 5 07/30/19 23 8:55 AM EDT documented as of this encounter Care Teams Rn Plastic Surgery Relationship Specialty Start Date End Date Shanita King MD [address] [place] [phone] PCP - General Family Medicine 10/09/20 Logan Morfin FNP [address] [place] [phone] Nurse Practitioner Family Medicine 02/21/23 documented as of this encounter
--- OUTSIDE RECORDS SUMMARY | 2025-01-22 09:16 | XMS_ITS | Encounter Summary ---
Author Organization [employer] Address [address] [place] [address] Care Team Providers Care Esl Instructor Name Role Phone Shanita King MD Primary Care Provider [phone] Logan Morfin Unavailable Unavailable Reason for Visit * Reason Onset Date Comments Dental Pain 06/23/2022 Encounter Details Date Type Department Care Team (Late st Contact Info) Description 06/23/2022 Telephone [facility] [address] [place] [address] Silvio Coronel DDS [address] [place] [address] Dental Pain Social History Tobacco Use Types Packs/Day Years [...] suspected to have Coronavirus/COVID-19? No / Unsure 06/23/2022 8:30 AM EDT documented as of this encounter Miscellaneous Notes * Telephone Encounter - Yvonne Shields - 06/23/2022 4:16 PM EDT Patient called in reference to extraction done today 06/23/2022. She states she is in extreme pain and using OTC ibuprofen and tylenol and no relief. I did tell patient that I would relay informationto provider but the office was currently closed for the day so the message itself would not be seenuntil tomorrow. Advised patient to contact office after 6pm where investigations manager Can be reached or if pain was unbearable and they felt they need to go to ER they have that option as well. Patient understood but is looking for what to do. documented in this encounter Plan of Treatment Upcoming Encounters Date Type Department Care Team (Late st Contact Info) Description 02/11/2025 3:00 PM EST Office Visit [facility] [address] [place] [phone] Shanita King MD [address] [place] [phone] documented as of this encounter Visit Diagnoses Not on filedocumented in this encounter Additional Health Concerns Assessment Noted Time PHQ-9 Depression Total Score: 9 06/23/19 11:10 AM EDT documented as of this encounter Care Teams Esl Instructor Relationship Specialty Start Date End Date Shanita King MD [address] [place] [phone] PCP - General Family Medicine 10/09/20 Logan Morfin FNP [address] [place] [phone] Nurse Practitioner Family Medicine 02/21/23 documented as of this encounter
--- OUTSIDE RECORDS SUMMARY | 2025-01-22 09:16 | XMS_ITS | Encounter Summary ---
Author Organization [employer] Address [address] [place] [address] Care Team Providers Care Whizzer Operator Name Role Phone Shanita King MD Primary Care Provider [phone] Logan Morfin Unavailable Unavailable Reason for Visit * Reason Comments Med Refill Encounter Details Date Type Department Care Team ([facility] st Contact Info) Description 09/03/2022 Refill [facility] [address] [place] [address] Mauro Maher MD [address] [place] [address] Alcohol dependence, uncomplicated (CMS/HCC) Social History Tobacco [...] suspected to have Coronavirus/COVID-19? No / Unsure 09/03/2022 8:38 AM EDT documented as of this encounter Functional Status * Over the past 2 weeks, how often have you been bothered by any of the following problems? Question Answer Date of Assessment Author Patient Health Questionnaire-2 Score 1 06/3 9:47 AM EDT Brian Naranjo * If you checked off any problems on this questionnaire so far, Question Answer Date of Assessment Author How difficult have these problems made it for you to do your work, take care of things at home, or get along with other people? Very difficult 09/03/2022 9:47 AM EDT Brian Naranjo * Over the last 2 weeks, how often have you been bothered by any of the following problems? Question Answer Date of Assessment Author Feeling nervous, anxious, or on edge 3 05/2022 9:49 AM EDT Brian Naranjo Not being able to stop or co ntrol worrying 3 09/03/2022 9:49 AM HENRYT Brian Naranjo Worrying too much about diff erent things 3 09/03/2022 9:49 AM EDT Brian Naranjo Trouble relaxing 3 09/03/2022 9:49 AM EDT Brian Anne Being so restless that it is hard to sit still 3 09/03/2022 9:49 AM EDT Brian Naranjo Becoming easily annoyed or irritable 2 05/2022 9:49 AM EDT Brian Naranjo Feeling afraid as if somethi ng awful might happen 1 09/03/2022 9:49 AM EDT Brian Naranjo CORTEZ-7 Total Score 18 09/03/2022 9:49 AM EDT Brian Naranjo * Over the past 2 weeks, how often have you been bothered by any of the following problems? Question Answer Date of Assessment Author Little interest or pleasure in doing things Not at all 09/03/2022 9:47 AM Brian Lobo Feeling down, depressed, or hopeless Several days 09/03/2022 9:47 AM EDT Brian Naranjo Trouble falling or staying asleep, or sleeping too much Nearly every day 09/03/2022 9:47 AM EDT Brian Naranjo Feeling tired or having little energy Nearly every day 09/03/2022 9:47 AM EDT Naranjo, Zorylee Poor appetite or overeating Not at all 09/03/2022 9: 47 AM EDT Brian Naranjo Feeling bad about yourself - or that you are a failure or have let yourself or your family down Several days 09/03/2022 9:47 AM EDT Brian Naranjo Trouble concentrating on things, such as reading the newspaper or watching television Nearly every day 09/03/2022 9:47 AM EDT Brian Naranjo Moving or speaking so slowly that other people could have noticed? Or the opposite - being so fidgety or restless that you have been moving around a lot more than usual. Not at all 09/03/2022 9:47 AM EDT Brian Naranjo Thoughts that you would be better off or hurting yourself in some way Not at all 09/03/2022 9:47 AM EDT Brian Naranjo Patient Health Questionnaire-9 Score 11 09/03/2022 9:47 AM EDT Brian Naranjo documented as of this encounter Plan of Treatment Upcoming Encounters Date Type Department Care Team (Late st Contact Info) Description 02/11/2025 3:00 PM EST Office Visit [facility] [address] [place] [address] Shanita King MD [address] [place] [phone] documented as of this encounter Visit Diagnoses Diagnosis Alcohol dependence, uncomplicated (CMS/HCC) (HCC) documented in this encounter Additional Health Concerns Assessment Noted Time PHQ-9 Depression Total Score: 11 023 9:47 AM EDT documented as of this encounter Care Teams Whizzer Operator Relationship Specialty Start Date End Date Shanita King MD [address] [place] [phone] PCP - General Family Medicine 10/09/20 Logan Morfin FNP [address] [place] [phone] Nurse Practitioner Family Medicine 02/21/23 documented as of this encounter
--- OUTSIDE RECORDS SUMMARY | 2025-01-22 09:16 | XMS_ITS | Clinical Summary ---
Author Organization [facility] Address [address] [place] [address] Care Team Providers Care Aircraft Riveter Name Role Phone Unavailable Primary Care Provider Unavailabl e Source Comments PLEASE NOTE, if this patient is a minor, it may be UNLAWFUL to discuss sensitive information that is contained in these records (such as FAMILY PLANNING, MENTAL HEALTH or SUBSTANCE ABUSE) with the minor patient's parent or other person without the patient's specific authorization.[facility] Medications ARIPiprazole (ABILIFY) 5 mg tablet Take 1 Tablet by mouth once daily for 16 days 16 Tablet 03/13/2024 Active Active Problems Problem Noted Date Diagnosed Date Advanced maternal age in multigravida 03/08/2024 History of laparoscopic cholecystectomy 03/08/20 History of trichomoniasis 03/08/2024 Maternal varicella, non-immune 03/08/2024 03/08/2024 03/08/2024 Rubella non-immune status, antepartum 03/08/2024 Uterine size date discrepancy 03/08/2024 Elevated BP without diagnosis of hypertension depression 02/12/2024 Axillary hidradenitis suppurativa 10/21/2023 Mass overlapping multiple quadrants of left [address] 10/21/2023 Hordeolum externum of left upper eyelid 10/13/19 CORTEZ (generalized anxiety disorder) 10/04/2023 Dental caries 06/10/2022 PTSD (post-traumatic stress disorder) 06/01/2022 Assessment & Plan (03/13/2024 3:43 PM EST): Assessment: Hypervigilance Plan: Consider stating SSRI next visit Alcohol dependence with uncomplicated withdrawal 04/27/2022 Assessment & Plan (03/13/2024 3:19 PM EST): Assessment: daily use, tolerance, unsuccessful attempts to cut down Plan: Encouraged reduction/abstinence Discussed outpatient treatment options Continue therapy for underlying trauma Discuss risk of at home medication detox. Dental disease 04/27/2022 Dental disease 04/27/2022 Eczema 04/27/2022 Moderate episode of recurrent major depressive d isorder 04/27/2022 Assessment & Plan (03/13/2024 3:49 PM EST): Major Depressive Disorder Assessment: depressed mood, anhedonia, guilt, worthlessness, fatigue, sleep disturbance, anxiety, hypervigilance Plan: Patient resisting medication intervention starting that no medication has ever helped her except Xanax. After some educated patient has agreed to try Abilify. Historically patient is non compliant with medication. Start Abilify 5mg daily Monitor for mood activation Continue outpatient therapy Follow-up in 2 weeks Tobacco use disorder 04/27/2022 Vitamin B12 deficiency 04/27/2022 Resolved Problems Problem Noted Date Diagnosed Date Resolved Date Impacted cerumen, left ear 08/09/2022 0 04/09/2024 Immunizations Immunization Administration Dates Next Due Flu, Preservative Free 01/29/2022 Hep A, adult 02/05/2022,07/31/2021 Hep B, Adult/Adol ([id number]-ADULT) 01/29/2022,09/11/2021,07/31/2021 INFLUENZA, SEASONAL, INJECTABLE 01/25/2023 MMR (MMR II/Priorix) 07/31/2023 TDAP 05/18/2023,09/29/2021 Family History Medical History Relation Name Comments No Known Problems Daughter Alcoholism Father Cancer Father Alcoholism Mother Post traumatic stress disorder Mother Schizophrenia Mother No Known Problems Son Relation Name Status Comments Daughter Father Mother Son Social History Tobacco Use Types Packs/Day Years Used Date Smoking Tobacco: Never Assessed Social Connections Answer Date Recorded Connectedness 0 12/15/2023 Financial Resource Strain Answer Date R ecorded Financial Resource Strain 0 2023 Stress Answer Date Recorded Stress 0 12/13/2023 Physical Activity Answer Date Recorded Physical Activity 0 12/13/2023 Food Insecurity Answer Date Recorded Food 0 12/30/2023 Transportation Needs Answer Date Record ed Transportation 0 12/13/2023 Housing Stability Answer Date Recorded Housing 0 12/13/2023 Safety and Environment Answer Date Bryson rded Safety 0 12/13/2023 Utilities Answer Date Recorded Utilities 0 12/13/2023 Employment Answer Date Recorded Stress 0 12/15/2023 Comments Unknown Sex and Gender Information Value Date Recorded Sex Assigned at Female 12/13/2023 7:56 AM PDT Legal Sex Female 7:56 AM PDT Gender Identity Female 12/13/2023 7:56 AM PDT Sexual Orientation Not on file Plan of Treatment Health Maintenance Due Date Last Done Comments Anxiety Screening 1983 Depression Monitoring 1983 HPV Screening 1983 Lipid Screening 1983 Pap + HPV 1983 Tobacco Cessation Counseling (#1) 1983 Tobacco Screening 1983 Relationship Safety Screening/Counseling 12/02/1998 Hypertension Screening (#1) 12/02/2001 Cervical Cancer Screening 12/02/2004 Pap Smear 12/02/2004 Imm-HPV (1 - 3-dose SCDM series) 12/02/2010 Breast Cancer Screening (Mammogram) 12/03/202310/31 Alcohol and Drug Screen 04/04/2024 [id number] ( season) 2024 022 Imm-Influenza (#1) 2024 01/25/2023, 01/29/2022 Diabetes Screening 10/17/2026 10/18/2023 Imm-DTaP/Tdap/Td (3 - Td or Tdap) 05/18/2033 024, 09/29/2021 Imm-Hepatitis B Completed 01/29/2022, 09/02, 07/31/2021 HIV Screening Completed 10/18/2023, 10/02, 07/24/2021 Hepatitis C Screening Completed 10/18/2023 Cervical Ablation/Cold-Knife Conization Discontinued Cervical Cryotherapy Discontinued Colposcopy Discontinued Endometrial Biopsy Discontinued Excision/Leep Discontinued HPV Genotyping Discontinued Vaginal Pap Discontinued Vulvoscopy Discontinued Insurance [place] MEDICAID [facility]
--- OUTSIDE RECORDS SUMMARY | 2025-01-22 09:16 | XMS_ITS | Encounter Summary ---
Author Organization [employer] Address [address] [place] [address] Care Team Providers Care Flooring Professional Name Role Phone Shanita King MD Primary Care Provider [phone] Logan Morfin Unavailable Unavailable Reason for Visit * Reason Onset Date Comments Appointment Request 12/29/2023 Encounter Details Date Type Department Care Team ([facility] st Contact Info) Description 12/29/2023 Telephone [facility] [address] [place] [address] Shanita King MD [address] [place] [address] Appointment Request Social History Tobacco Use Types Packs/Day Years [...] Answer Date Recorded Patient Health Questionnaire-9 Score 11 11/25/2023 Patient Health Questionnaire-9 Score 11 11/25/2023 Last PHQ-9: Questionnaire Data Not on file 0 11/25/2023 Housing Stability Answer Date Recorded What is your housing situation today? I have patt duran 08/01/[address] you li ve. Do you have problems with any of the following? None of the above 08/01/2023 Food Insecurity Answer Date Recorded Within the [...] to shut off services in your home? No 08/01/2023 Depression Answer Date Recorded Patient Health Questionnaire-2 Score 4 11/25/2023 Comments No Sex and Gender Information Value Date Recorded Sex Assigned at Female 02/01/2022 10:38 AM EDT Legal Sex Female 10:38 AM EDT Gender Identity Female 02/01/2022 10:38 AM EDT Sexual Orientation Don't know 02/01/2022 10 :38 AM EDT documented as of this encounter Miscellaneous Notes * Telephone Encounter - Brayan Ryan - 12/29/2023 12:44 PM EDT Tc from patient attempting to reschedule follow-up appt with PCP from 11/21 however there is no availability at the moment documented in this encounter Plan of Treatment Upcoming Encounters Date Type Department Care Team (Late st Contact Info) Description 02/11/2025 3:00 PM EST Office Visit [facility] [address] [place] [address] Shanita King MD [address] [place] [address] documented as of this encounter Visit Diagnoses Not on filedocumented in this encounter Additional Health Concerns Assessment Noted Time PHQ-9 Depression Total Score: 11 024 10:16 AM EDT documented as of this encounter Care Teams Flooring Professional Relationship Specialty Start Date End Date Shanita King MD [address] [place] [phone] PCP - General Family Medicine 10/09/20 Logan Morfin FNP [address] [place] [phone] Nurse Practitioner Family Medicine 02/21/23 documented as of this encounter
--- OUTSIDE RECORDS SUMMARY | 2025-01-22 09:16 | XMS_ITS | Encounter Summary ---
Author Organization [employer] Address [address] [place] [address] Care Team Providers Care Senior Administrative Associate Name Role Phone Shanita King MD Primary Care Provider [phone] Logan Morfin Unavailable Unavailable Reason for Visit * Reason Onset Date Comments medication 07/30/2022 Appointment 07/30/2022 Encounter Details Date Type Department Care Team (Late st Contact Info) Description 07/30/2022 Telephone [facility] [address] [place] [address] Tomas Florentino DMD [address] [place] [address] medication; Appointment Social History Tobacco Use Types Packs/Day Years [...] suspected to have Coronavirus/COVID-19? No / Unsure 07/28/2022 8:35 AM EDT documented as of this encounter Miscellaneous Notes * Telephone Encounter - Yvonne Shields - 07/30/2022 11:16 AM EDT Patient called in because she had an appt on 07/21 and is stating that she is still in pain and looking to see if she can get something else for pain while she waits for her appt with Dr. Florentino. She is taking the antibiotics but is still experiencing pain. Pls advise. documented in this encounter Plan of Treatment Upcoming Encounters Date Type Department Care Team (Late st Contact Info) Description 02/11/2025 3:00 PM EST Office Visit [facility] [address] [place] [address] Shanita King MD [address] [place] [phone] documented as of this encounter Visit Diagnoses Not on filedocumented in this encounter Additional Health Concerns Assessment Noted Time PHQ-9 Depression Total Score: 5 07/30/19 23 8:55 AM EDT documented as of this encounter Care Teams Senior Administrative Associate Relationship Specialty Start Date End Date Shanita King MD [address] [place] [phone] PCP - General Family Medicine 10/09/20 Logan Morfin FNP [address] [place] [phone] Nurse Practitioner Family Medicine 02/21/23 documented as of this encounter
== END 2025-01-22 08:50 | disposition home or self-care (01) ==
LOC: HO.MAMMO 08:49
PROVIDERS: PCP Family Medicine; Visit Provider Family Medicine
DX: Z12.31 Encounter for screening mammogram for malignant neoplasm of breast (principal)
CPT/HCPCS: 77063; 77067

== ENCOUNTER 2025-03-21 18:05 | Outpatient (REF) | payer MEDICAID, SELFPAY ==
--- OUTSIDE RECORDS SUMMARY | 2025-03-21 15:30 | XMS_ITS | Encounter Summary ---
Author Organization [employer] Address [address] [facility] [address] [place] [address] Care Team Providers Care Punch Press Setter Name Role Phone Shanita King MD Primary Care Provider [phone] Logan Morfin Unavailable Unavailable Reason for Visit * Reason Comments CHW - Office Visit Encounter Details Date Type Department Care Team ([facility] st Contact Info) Description 03/21/2025 3:30 PM EST Office Visit [facility] [address] [place] [address] Jazmine Quan CNM [address] [place] [address] Family planning counseling (Primary Dx); Screening examination for venereal disease Social History Tobacco Use Types Packs/Day Years [...] Q2 Not on file 01/26/2024 Comments No Intention Date Recorded No desire to become (finding) 1 05/22/2024 Sex and Gender Information Value Date Recorded Sex Assigned at Female 02/01/2022 10:38 AM EDT Legal Sex Female 10:38 AM EDT Gender Identity Female 02/01/2022 10:38 AM EDT Sexual Orientation Don't know 02/01/2022 10 :38 AM EDT documented as of this encounter Last Filed Vital Signs Vital Sign Reading Time Taken Comments Blood Pressure 130/80 03/21/2025 3:49 PM EST Pulse 105 03/21/2025 3:49 PM EST Temperature 36.7 C (98 F) 03/21/2025 3:49 PM EST Respiratory Rate 16 03/21/2025 3:49 PM EST Oxygen Saturation 99% 03/21/2025 3:49 PM EST Inhaled Oxygen Concentration - - Weight 74.2 kg (163 lb 9.6 oz) 03/21/2025 3:49 P M EST Height - - Body Mass Index 24.88 11/26/2024 9:45 AM EDT documented in this encounter Progress Notes * Jazmine Quan CNM - 03/21/2025 3:30 PM EST Subjective Patient ID: Vesta Medeiros is a 39 y.o. female who presents for control Would like to discuss control and STI testing. Took Plan B 03/18 for sex 03/15 with ex-. LMP 02/21/2025. Monthly menses x 3 days. Not planning . Treated for trichomonas in last year, doesn't sound like she has had testing since then. No vaginal symptoms. Didn't like IUD, doesn't want method with weight gain. Pap NIL/HPV neg 01/2023. Mammogram BIRADS 1 in 01/2025. Review of Systems Genitourinary: Negative for vaginal discharge. Objective BP 130/80 (BP Location: Left arm, Patient Position: Sitting, BP Cuff Size: Adult) Pulse 105 Temp 98 ??F (36.7 ??C) (Oral) Resp 16 Wt 163 lb 9.6 oz (74.2 kg) SpO2 99% BMI 24.88 kg/m?? Physical Exam Constitutional: Appearance: Normal appearance. Neurological: Mental Status: She is alert. Psychiatric: Mood and Affect: Mood normal. Behavior: Behavior normal. Assessment/Plan Diagnoses and all orders for this visit: Family planning counseling Reviewed options. Best fit would be implant or progestin only pill. Would like progestin only pill.Discussed NET vs drospirenone formulations. Would like Slynd. Start now, backup x 7 days. Report ifno menses by end of pack. Will check hcg if so. Expect irregular bleeding for first few months, butreport prolonged, heavy or frequent bleeding. Followup 2-3 months, sooner if needed. Screening examination for venereal disease - Chlamydia/N. Gonorrhoeae RNA, TMA, Vagina - Trichomonas RNA (Urine/Vaginal) Self collected vaginal testing today. Reviewed window periods with serum labs. She will go to [facility] these next month. Other orders - Drospirenone (Slynd) 4 MG tablet; Take 1 tablet by mouth Once per day. documented in this encounter Plan of Treatment Upcoming Encounters Date Type Department Care Team ([facility] st Contact Info) Description 04/02/2025 10:30 AM EST Office Visit [facility] [address] [place] [address] [phone] Gustavo Vasques MD [address] [place], [place] [phone] 05/22/2025 3:30 PM EST Office Visit [facility] [address] [place] [address] Jazmine Quan CNM [address] [place] [address] Scheduled Orders Name Type Priority Associated Diagnoses Orde r Schedule Chlamydia/N. Gonorrhoeae RNA, TMA, Vagina Microbiology Routine Screening examination for venereal disease Ordered: 03/21/2025 Trichomonas RNA (Urine/Vaginal) Lab Routine Screening examination for venereal disease Ordered: 03/21/2025 documented as of this encounter Visit Diagnoses Diagnosis Family planning counseling- Primary Other general counseling and advice for contraceptive management Screening examination for venereal disease documented in this encounter Additional Health Concerns Assessment Noted Time PHQ-9 Depression Total Score: 15 12/24/ 025 3:36 PM EDT documented as of this encounter Care Teams Punch Press Setter Relationship Specialty Start Date End Date Shanita King MD [address] [place], [place] [phone] PCP - General Family Medicine 10/09/20 Logan Morfin FNP [address] [place] [address] Nurse Practitioner Family Medicine 02/21/23 documented as of this encounter
--- OUTSIDE RECORDS SUMMARY | 2025-03-21 19:51 | XMS_ITS | Encounter Summary ---
Author Organization [employer] Address [address] [facility] [address] [place] [address] Care Team Providers Care Special Needs Babysitter Name Role Phone Shanita King MD Primary Care Provider [phone] Logan Morfin Unavailable Unavailable Reason for Visit * Reason Onset Date Comments chart prep 03/20/2025 Encounter Details Date Type Department Care Team ([facility] st Contact Info) Description 03/20/2025 Telephone [facility] [address] [place] [address] Jazmine Quan CNM [address] [place] [address] chart prep Social History Tobacco Use Types Packs/Day Years [...] encounter Miscellaneous Notes * Telephone Encounter - Radha Morales MA - 03/20/2025 4:25 PM EST ..Chart Prep Labs: not applicable Images: not applicable Vaccines due: Covid Due, PCV20 Due, and Flu Due Referrals: Not Applicable Screenings: LMP Overdue care gaps: None documented in this encounter Plan of Treatment Upcoming Encounters Date Type Department Care Team (Late st Contact Info) Description 04/02/2025 10:30 AM EST Office Visit [facility] [address] [place] [address] Gustavo Vasques MD [address] [place] [address] 05/22/2025 3:30 PM EST Office Visit [facility] [address] [place] [address] Jazmine Quan CNM [address] [place] [address] documented as of this encounter Visit Diagnoses Not on filedocumented in this encounter Additional Health Concerns Assessment Noted Time PHQ-9 Depression Total Score: 15 12/24/ 025 3:36 PM EDT documented as of this encounter Care Teams Special Needs Babysitter Relationship Specialty Start Date End Date Shanita King MD [address] [place] [address] PCP - General Family Medicine 10/09/20 Logan Morfin FNP [address] [place] [address] Nurse Practitioner Family Medicine 02/21/23 documented as of this encounter
--- OUTSIDE RECORDS SUMMARY | 2025-03-21 19:51 | XMS_ITS | Encounter Summary ---
Author Organization [employer] Address [address] [place] [address] Care Team Providers Care Sample Builder Name Role Phone Shanita King MD Primary Care Provider [phone] Logan Morfin Unavailable Unavailable Encounter Details Date Type Department Care Team (Latest Contact Info) Description 03/21/2025 Travel Social History Tobacco Use Types Packs/Day Years [...] Description 04/02/2025 10:30 AM EST Office Visit [facility] [address] [place] [address] Gustavo Vasques MD [address] [place] [address] 05/22/2025 3:30 PM EST Office Visit [facility] [address] [place] [address] Jazmine Quan CNM [address] [place] [address] documented as of this encounter Visit Diagnoses Not on filedocumented in this encounter Additional Health Concerns Assessment Noted Time PHQ-9 Depression Total Score: 15 025 3:36 PM EDT documented as of this encounter Care Teams Sample Builder Relationship Specialty Start Date End Date Shanita King MD [address] [place] [phone] PCP - General Family Medicine 10/09/20 Logan Morfin FNP [address] [place] [address] Nurse Practitioner Family Medicine 02/21/23 documented as of this encounter
--- OUTSIDE RECORDS SUMMARY | 2025-03-21 19:52 | XMS_ITS | Encounter Summary ---
Author Organization [employer] Address [address] [facility] [address] [place] [address] Care Team Providers Care Cord Cutter Name Role Phone Shanita King MD Primary Care Provider [phone] Logan Morfin Unavailable Unavailable Reason for Visit * Reason Onset Date Comments medication 07/30/2022 Appointment 07/30/2022 Encounter Details Date Type Department Care Team (Late st Contact Info) Description 07/30/2022 Telephone [facility] [address] [place] [address] Tomas Florentino DMD [address] [place] [address] medication; Appointment Social History Tobacco Use Types [...] Description 04/02/2025 10:30 AM EST Office Visit [facility] [address] [place] [address] Gustavo Vasques MD [address] [place] [address] 05/22/2025 3:30 PM EST Office Visit [facility] [address] [place] [address] Jazmine Quan CNM [address] [place] [address] documented as of this encounter Visit Diagnoses Not on filedocumented in this encounter Additional Health Concerns Assessment Noted Time PHQ-9 Depression Total Score: 5 07/30/19 8:55 AM EDT documented as of this encounter Care Teams Cord Cutter Relationship Specialty Start Date End Date Shanita King MD [address] [place] [phone] PCP - General Family Medicine 10/09/20 Logan Morfin FNP [address] [place] [address] Nurse Practitioner Family Medicine 02/21/23 documented as of this encounter
--- OUTSIDE RECORDS SUMMARY | 2025-03-21 19:52 | XMS_ITS | Encounter Summary ---
Author Organization [employer] Address [address] [facility] [address] [place] [address] Care Team Providers Care Mental Hygiene Consultant Name Role Phone Shanita King MD Primary Care Provider [phone] Logan Morfin Unavailable Unavailable Reason for Visit * Reason Onset Date Comments plan B 03/15/2025 Encounter Details Date Type Department Care Team ([facility] st Contact Info) Description 03/15/2025 Telephone [facility] [address] [place] [address] Shanita King MD [address] [place] [address] plan B Social History Tobacco Use Types Packs/Day Years [...] encounter Miscellaneous Notes * Telephone Encounter - Park Mccormick RN - 03/18/2025 11:46 AM EST Telephone call to pt, advised that Plan B medication sent to pharmacy, okay to take today. Advised her that per covering provider, okay to take progesterone only OCP, sent today, or recommended to discuss control options with PCP or nurse-sleeper cutter. Pt agreeable to appointment this week, no further questions. Future Appointments Date Time Provider Department Center 03/21/2025 3:30 PM Jazmine Quan CNM [facility] 03/22/2025 3:30 PM Brian Naranjo [facility] * Telephone Encounter - Dee Barth RN - 03/15/2025 4:14 PM EST Telephone call placed to pt regarding below message. Pt reports was having sex at 1am this morning and condom broke. She is requesting plan B be sent to [facility]. Attempted to make an appointment to discuss BC. Pt requesting control pills. Denies history of high blood pressure of bloodclots. She is declining appointment. Wondering if OC can be sent along with plan B. * Telephone Encounter - Shawna Oswald - 03/15/2025 3:52 PM EST Tc from pt requesting Plan B, due having intercourse recently. Contact pt at [phone] documented in this encounter Plan of Treatment Upcoming Encounters Date Type Department Care Team (Late st Contact Info) Description 04/02/2025 10:30 AM EST Office Visit [facility] [address] [place] [address] Gustavo Vasques MD [address] [place] [address] 05/22/2025 3:30 PM EST Office Visit [address] [address] Jazmine Quan CNM [address] [place] [address] documented as of this encounter Visit Diagnoses Not on filedocumented in this encounter Additional Health Concerns Assessment Noted Time PHQ-9 Depression Total Score: 15 025 3:36 PM EDT documented as of this encounter Care Teams Mental Hygiene Consultant Relationship Specialty Start Date End Date Shanita King MD [address] [place] [address] PCP - General Family Medicine 10/09/20 Logan Morfin FNP [address] [place] [address] Nurse Practitioner Family Medicine 02/21/23 documented as of this encounter
--- OUTSIDE RECORDS SUMMARY | 2025-03-21 19:52 | XMS_ITS | Encounter Summary ---
Author Organization [employer] Address [address] [facility] [address] [place] [address] Care Team Providers Care Field Marketing Team Leader Name Role Phone Shanita King MD Primary Care Provider Logan Morfin Unavailable Unavailable Reason for Visit * Reason Onset Date Comments Med Refill Appointment 10/07/2022 Encounter Details Date Type Department Care Team (Late st Contact Info) Description 09/27/2022 Refill [facility] [address] [place] [address] Mauro Maher MD [address] [place] [address] Social History Tobacco Use Types Packs/Day Years [...] pt regarding her appt for today as [id number]. pt request to cancel and re-schedule, Pt r/s for 11/23/22 @ 9:15am. documented in this encounter Plan of Treatment Upcoming Encounters Date Type Department Care Team (Late st Contact Info) Description 04/02/2025 10:30 AM EST Office Visit [facility] [place] [place] [address] Gustavo Vasques MD 230 [facility] [place] [address] 05/22/2025 3:30 PM EST Office Visit [facility] [place] [address] Jazmine Quan CNM [address] [place] [address] documented as of this encounter Visit Diagnoses Not on filedocumented in this encounter Additional Health Concerns Assessment Noted Time PHQ-9 Depression Total Score: 11 023 9:47 AM EDT documented as of this encounter Care Teams Field Marketing Team Leader Relationship Specialty Start Date End Date Shanita King MD [facility] [place] [address] PCP - General Family Medicine 10/09/[address] Morfin F[facility] [place] [address] Nurse Practitioner Family Medicine 02/21/23 documented as of this encounter
--- OUTSIDE RECORDS SUMMARY | 2025-03-21 19:52 | XMS_ITS | Encounter Summary ---
Author Organization [employer] Address [address] [facility] [address] [facility] [address] [facility] [address] [place] [address] Care Team Providers Care Associate Pastor Name Role Phone Shanita King MD Primary Care Provider [phone] Logan Morfin Unavailable Unavailable Reason for Visit * Reason Comments Med Refill Encounter Details Date Type Department Care Team ([facility] Contact Info) Description 11/07/2022 Refill [facility] [address] [place], [place] [phone] Mauro Maher MD [address] [place], [place] [phone] Alcohol dependence, uncomplicated (CMS/HCC) Social History Tobacco [...] Encounters Date Type Department Care Team ([facility] Contact Info) Description 04/02/2025 10:30 AM EST Office Visit [facility] [address] [place] [address] Gustavo Vasques MD [address] [place], [place] [phone] 05/22/2025 3:30 PM EST Office Visit [facility] [address] [place], [place] [phone] Jazmine Quan CNM [address] [place], [place] [phone] documented as of this encounter Visit Diagnoses Diagnosis Alcohol dependence, uncomplicated (CMS/HCC) (HCC) documented in this encounter Additional Health Concerns Assessment Noted Time PHQ-9 Depression Total Score: 8 10/27/19 23 9:50 AM EDT documented as of this encounter Care Teams Associate Pastor Relationship Specialty Start Date End Date Shanita King MD [address] [place] [address] [phone] PCP - General Family Medicine 10/09/20 Logan Morfin FNP [address] [place] [address] Nurse Practitioner Family Medicine 02/21/23 documented as of this encounter
--- OUTSIDE RECORDS SUMMARY | 2025-03-21 19:52 | XMS_ITS | Encounter Summary ---
Author Organization [employer] Address [address] [facility] [address] [place] [address] Care Team Providers Care Eeg Technologist Name Role Phone Shanita King MD Primary Care Provider [phone] Logan Morfin Unavailable Unavailable Reason for Visit * Reason Comments Med Refill Encounter Details Date Type Department Care Team ([facility] st Contact Info) Description 09/03/2022 Refill [facility] [address] [place] [address] Mauro Maher MD [address] [place] [address] Alcohol dependence, uncomplicated (CMS/HCC) Social History Tobacco [...] 06/3 9:47 AM EDT Brian Naranjo * How difficult have these problems made it for you to do your work, take care of things at home, or get along with other people? Answer Date of Assessment Author Very difficult 09/03/2022 9:47 AM EDT Nora Naranjo * Over the last 2 weeks, how often have you been bothered by any of the following problems? Question Answer Date of Assessment Author Feeling nervous, anxious, or on edge 3 05/2022 9:49 AM EDT Brian Naranjo Not being able to stop or co ntrol worrying 3 09/03/2022 9:49 AM EDT Brian Naranjo Worrying too much about diff erent things 3 09/03/2022 9:49 AM EDT Brian Naranjo Trouble relaxing 3 09/03/2022 9:49 AM EDT Brian Anne Being so restless that it is hard to sit still 3 09/03/2022 9:49 AM EDT Brian Narajno Becoming easily annoyed or irritable 2 05/2022 [...] things Not at all 09/03/2022 9:47 AM EDBrian Kamara Feeling down, depressed, or hopeless Several days 09/03/2022 9:47 AM EDT Brian Naranjo Trouble falling or staying asleep, or sleeping too much Nearly every day 09/03/2022 9:47 AM EDT Brian Naranjo Feeling tired or having little energy Nearly every day 09/03/2022 9:47 AM EDT Brian Naranjo Poor appetite or overeating Not at all [...] Description 04/02/2025 10:30 AM EST Office Visit [facility] [address] [place] [phone] Gustavo Vasques MD [address] [place] [address] 05/22/2025 3:30 PM EST Office Visit [facility] [address] [place] [address] Jazmine Quan CNM [address] [place] [address] documented as of this encounter Visit Diagnoses Diagnosis Alcohol dependence, uncomplicated (CMS/HCC) (HCC) documented in this encounter Additional Health Concerns Assessment Noted Time PHQ-9 Depression Total Score: 11 023 9:47 AM EDT documented as of this encounter Care Teams Eeg Technologist Relationship Specialty Start Date End Date Shanita King MD [address] [place] [address] PCP - General Family Medicine 10/09/20 Logan Morfin FNP 230 [place] [address] Nurse Practitioner Family Medicine 02/21/23 documented as of this encounter
--- OUTSIDE RECORDS SUMMARY | 2025-03-21 19:52 | XMS_ITS | Encounter Summary ---
Author Organization [employer] Address [address] [facility] [address] [place] [address] Care Team Providers Care Spinning Room Worker Name Role Phone Shanita King MD Primary Care Provider [phone] Logan Morfin Unavailable Unavailable Encounter Details Date Type Department Care Team (Late st Contact Info) Description 03/18/2025 Orders Only [facility] [address] [place] [address] Fatemeh Isabel MD [address] [place] [address] Social History Tobacco Use Types Packs/Day Years [...] t he electric, gas, oil or water [employer] threatened to shut off services in your [...] Description 04/02/2025 10:30 AM EST Office Visit [facility] [address] [place] [phone] Gustavo Vasques MD [address] [place] [phone] 05/22/2025 3:30 PM EST Office Visit [facility] [address] [place] [address] Jazmine Quan CNM [address] [place] [address] documented as of this encounter Visit Diagnoses Not on filedocumented in this encounter Additional Health Concerns Assessment Noted Time PHQ-9 Depression Total Score: 15 025 3:36 PM EDT documented as of this encounter Care Teams Spinning Room Worker Relationship Specialty Start Date End Date Shanita King MD [address] [place] [address] PCP - General Family Medicine 10/09/20 Logan Morfin FNP [address] [place] [address] Nurse Practitioner Family Medicine 02/21/23 documented as of this encounter
--- OUTSIDE RECORDS SUMMARY | 2025-03-21 19:52 | XMS_ITS | Clinical Summary ---
Author Organization [employer] Address [address] [facility] [address] [place] [address] Care Team Providers Care Database Administrator Name Role Phone Shanita King MD Primary Care Provider [phone] Logan Morfin Unavailable Unavailable Allergies No known active allergies Medications * This document contains information received from the source organization and may not represent a complete record from that organization. betamethasone valerate (Valisone) 0.1 % creamIndication s:Eczema, unspecified type Apply topically if needed in the morning and at bedtime (dryness). 45 g 5 10/13/19 24 Active triamcinolone (Kenalog) 0.1 % creamIndication s:Eczema, unspecified type Apply topically 2 times daily. For up to 2 weeks 30 g 10/13/19 24 Active Additional Information Patient not taking.Reported on 10/01/2024 Blood Pressure Monitor [facility] Check BP daily 1 each 02/07/20 24 Active Sodium Fluoride 1.1 % creamIndication s:Dental caries [place] teeth for 2 minutes, morning and night. Spit, do not rinse. Do not eat or drink anything for 30 minutes following use. 112 g 3 10/02/19 25 Active LORazepam (Ativan) 0.5 MG tablet Take 1 tablet by mouth once a day as needed for panic attack. Maximum 15 tabs per month. 15 tablet 11/27/19 25 Active naloxone (Narcan) 4 mg/0.1 mL nasal spray 1 spray Once per day. 04/21/19 25 Active levocetirizine (Xyzal) 5 MG tablet Take 1 tablet by mouth Once per day. 12/14/19 25 Active ARIPiprazole (Abilify) 5 MG tablet Take 5 mg by mouth Once per day. 12/29/19 23 Active Drospirenone (Slynd) 4 MG tablet Take 1 tablet by mouth Once per day. 28 tablet 11 03/21/20 25 Active levonorgestrel (Plan B) 1.5 MG tablet Take 0.5 tablets (0.75 mg) by mouth every 12 (twelve) hours for 1 day. 1 tablet 03/18/20 25 025 norethindrone (Micronor) 0.35 MG tablet Take 1 tablet (0.35 mg) by mouth Once per day. 84 tablet 3 03/18/20 25 025 Discontinued Active Problems Problem Noted Date Diagnosed Date Cannabis use disorder 03/20/2024 History of laparoscopic cholecystectomy 03/08/20 24 History of trichomoniasis 03/08/2024 Rubella non-immune status, antepartum 03/08/2024 Uterine size date discrepancy 03/08/2024 Maternal varicella, non-immune 03/08/2024 Advanced maternal age in multigravida 03/08/2024 Elevated BP without diagnosis of hypertension [...] (generalized anxiety disorder) 10/04/2023 Assessment & Plan (03/08/2025 3:58 PM EST): Assessment & Plan (02/22/2025 12:23 PM EST): Assessment & Plan (2024 5:19 PM EDT): [...] (post-traumatic stress disorder) 06/01/2022 Assessment & Plan (02/22/2025 12:23 PM EST): Assessment & Plan (10/10/2023 2:27 PM EDT): [...] mg prn anxiety. She will F/U with [facility] clinician as usual. Since this provider will be retiring, patient will be referred urgently to new [facility] psychiatric prescriber. Pt is aware that appts will be via televisit, and that provider will not be an employee of [facility]. She gives permission to share PHI. Any issues or concerns, contact [facility]. All her questions were answered. She [...] is (EDC August 2023), being followed by [facility] OB, depression is controlled but still feeling [...] projects. Pt is , being followed by [facility], depression is controlled but still feeling [...] so, and suggested she request referral to [facility] psychiatric prescriber. Has been referred for for [...] projects. Pt is , being followed by [facility] OB, Feeling quite anxious, but unfortunately there are limited options for anxiety treatment in for pt intolerant of antidepressant. She will continue Abilify 20 mg daily. Today 01/27/2023 provider informed pt that I would be retiring within the next year or so, and suggest she request referral to [facility] psychiatric prescriber. Has been referred for for [...] and has first OB appt upcoming at [facility]. Has stopped the Trazodone and Hydroxyzine, and [...] marijuana use. Intermittent cocaine use. Follows with [facility] clinician Brian Naranjo and assistant golf coach. Did not notice any improvement (and [...] daily. Continue F/U with AUD program and [facility] Clinician. F/U with me in 4-6 weeks. [...] marijuana use. Intermittent cocaine use. Follows with [facility] clinician Brian Naranjo and assistant golf coach. Did not notice any improvement with [...] part of her treatment plan, suggest accessing [facility] for intake. She has reasonable insight, so [...] episode of recurren t major depressive disorder (CMS/HCC) 04/27/2022 Assessment & Plan (2024 5:19 PM [...] include resilience PLAN: 1. Follow up with [facility]: Recommended for follow-up: during AUD appts 2. [...] benefit from continuation of f/u with this abstract writer. At this time Vesta Medeiros meets criteria for Visit Diagnoses: Problem List Items Addressed This Visit Other Mixed anxiety and depressive disorder Alcohol dependence with uncomplicated withdrawal (CMS/HCC) Patient ready to address current needs No Strengths include Stephanie is aware of her sxs, but is not ready ot engage in watermelon harvesting supervisor therapy at this time. PLAN: 1. Follow up with [facility]: Recommended for follow-up: during AUD appt 2. [...] her to try Mindfulness Tuesday Program at [facility], provided her with the flyer in case [...] but is not ready ot engage in watermelon harvesting supervisor therapy at this time. PLAN: 1. Follow up with [facility]: Recommended for follow-up: during AUD appt 2. Patient goal is maintain sobriety and get a mentally stable to improve functionality. 3. Behavioral Recommendations a. Using Coping mechanisms discussed b. Keep Med. Management appt c. [facility] for support as needed. Alcohol use disorder 04/27/2022 Assessment & Plan (03/08/2025 3:58 PM EST): Assessment & Plan (2024 5:08 PM EDT): - previously following with Dr. [facility]her[facility] AUD clinic - no longer drinking alcohol excessively Assessment & Plan (02/12/2024 4:36 PM EST): - following with Dr. [facility]UD clinic - continue current Tx plan per Dr. Maher Assessment & Plan (10/10/2023 2:28 PM EDT): She will F/U with [facility] AUD program, with medication: Naltrexone and Gabapentin, group support, and recovery coaching, but [facility] clinician. Assessment & Plan (10/05/2023 8:13 AM [...] and has agreed to engage in Ind. Thermeghnay with this abstract writer. We discussed how feeling and emotions has lead to her relapse and also discussed different ways to manage cravings. Vesta was engaged and receptive during session. She will continue to use effective coping mechanisms such as going to the gym, spending time with her children and partner and will take medication as prescribed. PLAN: Behavioral Health Integration Plan Internal Follow up with [facility] Patient Self Plan Patient to utilize skills provided in intervention , Patient to reach out to [facility] team as needed, Comply with medication , Patient to engage in OP therapy , and Patient to reach out to [facility] as needed Assessment & Plan (10/01/2022 12:14 [...] benefit from continuation of f/u with this abstract writer. At this time Vesta Medeiros meets criteria for Visit Diagnoses: Problem List Items Addressed This Visit Other Mixed anxiety and depressive disorder Alcohol dependence with uncomplicated withdrawal (CMS/HCC) Patient ready to address current needs No Strengths include Stephanie is aware of her sxs, but is not ready ot engage in group home therapy at this time. PLAN: 1. Follow up with [facility]: Recommended for follow-up: during AUD appt 2. [...] this time, prefers remained engaged with this abstract writer. Provided education around integrated medicine and the options of follow up BE's as needed. Provided contact information should questions or concerns arise. Plan: Vesta will continue to engage in effective coping mechanisms that has work for her and will integrate behavioral activation exercises. She will continue to meet with this abstract writer during her OBAT appts, she will inform me once she is ready for Ind. Therapy. Patient doing well denies cravings, drinking thoughts, and has maintain sobriety for a month in the context of living next to a liquor, and family stressors. Patient will benefit from Ind. Therapy for AUD, using OR. At this time Vesta Medeiros meets criteria for Visit Diagnoses: Problem List Items Addressed This Visit Other Alcohol dependence with uncomplicated withdrawal (CMS/HCC) Patient ready to address current needs Not ready to engage with other therapist at this time. Strengths include willingness, motivation, resilience. PLAN: 1. Follow up with [facility]: during next OBAT appt 2. Patient goal is maintain her sobriety. 3. Behavioral Recommendations a. Vesta will remind connected with - b. She will keep her AUD appts c. She will remained engage with this abstract writer for support. Assessment & Plan (08/09/2022 12:38 PM EDT): -Following with Dr. Maher -continue Naltrexone -continue Gabapemtim -Continue Behavioral Health Services Assessment & Plan (04/27/2022 4:58 PM EST): - following with Dr. Maher' - s/p Detox - started Vivitrol on 04/20/22 - continue current recovery support (working with [facility] clinician and ) - encouraged to come [...] discouraged taking non-prescribed prednisone - refer to care management specialist for biologic treatment - refer to [...] addition of SSRI was recommended by psych showroom consultant - start fluoxetine 10 mg daily - continue bupropion for tobacco use - continue hydroxyzine prn - continue trazodone - recommended acupuncture; pt will come tomorrow Mood disorder 04/27/2022 02/16/2024 Assessment & Plan (02/12/2024 4:34 PM EST): - previously diagnosed with bipolar disorder and PTSD by Logan psych showroom consultant - patient also has Dx MDD [...] organization. Date Type Department Care Team Description 03/21/2025 3:30 PM EST Office Visit [facility] [address] [place] [phone] Jazmine Quan CNM Family planning counseling (Primary Dx); Screening examination for venereal disease 03/21/2025 Travel 03/20/2025 Telephone [facility] [address] [place] [address] Jazmine Quan CNM chart prep 03/18/2025 Orders Only [facility] [address] [place] [address] [phone] Fatemeh Isabel MD 03/15/[address] [address] Shanita King MD plan B 03/08/2025 Telephone [facility] [address] [place] [phone] Shanita King MD Appointment Request 02/13/2025 Refill [facility] [address] [place] [phone] Shanita King MD 02/08/2025 Telephone [facility] [address] [place] [address] Shanita King MD chartprep from Last 3 Months Immunizations Immunization Administration [...] oz) 03/21/2025 3:49 P M EST Height 172.7 cm (5' 8 ) 11/26/2024 9:45 AM EDT Body Mass Index 24.88 11/26/2024 9:45 AM EDT Plan of Treatment Upcoming Encounters Date Type Department Care Team (Late st Contact Info) Description 04/02/2025 10:30 AM EST Office Visit [facility] [address] [place] [address] Gustavo Vasques MD [address] [place], [place] [phone] 05/22/2025 3:30 PM EST Office Visit [facility] [address] [place], [place] [phone] KadeemJazmine, CNM [address] [place], [place] [phone] Health Maintenance Due Date Last Done Comments Dental X-Ray: Bitewings 1985 Lipid Panel 1985 HPV Vaccines (1 - 3-dose series) 12/02/1998 Pneumococcal Vaccine: Pediatrics (0 to 5 Years) and At-Risk Patients (6 to 49) Years (1 of 2 - PCV) 12/02/2002 COVID-19 Vaccine (2 - 2024-2 6 season) 2024 01/29/2022 Influenza Vaccine (#1) 2024 , 01/29/2022 Dental Oral Exam 03/14/2025 09/11/2024, 08/11/2022 Dental Prophylaxis 03/14/2025 09/11/2024, 09/15/2022 Dental X-Ray: Full Mouth 04/10/2025 04/09/2022 SDOH Screening 05/16/2025 05/16/2024 Depression Monitoring 06/23/2025 12/24/2024 , 12/24/2024 Alcohol/Substance Use Screening 11/26/2025 11/26/2024 Disability Screening 11/26/2025 11/26/2024 Tobacco Screening 2025 2024 Family Planning (PISQ) 03/21/2026 03/21/2025 Mammogram 01/22/2027 01/22/2025, 10/31/2020, 10/31/2020 Cervical Cancer Screening 01/26/2028 HPV/Cotest 01/26/2028 01/25/2023 [...] Procedure Name Priority Date/Time Associated Diagnosis Comments BI MAMMOGRAM SCREENING TOMOSYNTHESIS BILATERAL Routine 01/22/2025 8:51 AM EDT Breast cancer screening by mammogram PROPHYLAXIS - ADULT Routine 09/11/2024 2 :30 [...] RADIOGRAPHIC IMAGE Routine 04/09/2022 10:00 AM EST from Last 3 Months or Most Recently Relevant to Health Maintenance Results * BI Mammogram Screening Tomosynthesis Bilateral (01/22/2025 8:51 AM EDT) Anatomical Region Laterality Modality Breast Bilateral Mammography 01/22/2025 8:51 AM EDT Narrative 01/22/2025 3:54 PM EDT [facility] [address] [place] [address] [place] [address] Mammography Report Signed with Addenda Patient: Vesta Medeiros MR#: [id number] : 1985 Acct:[id number] Age/Sex: 39 / F ADM Date: 01/22/25 Loc: HO.MAMMO Attending Dr: Shanita King MD Ordering Physician: Shanita King MD Results: 1Negative Date of Service: 01/22/25 Follow Up: 1 Year From Orig ina Mammogram Procedure(s): MM tomosynthesis screening BI Accession Number(s): [id number] cc: Shanita King MD Reason For Exam: breast cancer screening ADDENDUM ADDENDUM #1 ADDENDUM: Due to a software issue this mammogram was reviewed a second time. The findings and recommendations remain the same. OVERALL ASSESSMENT: Category 1: Negative RECOMMENDATION: 1 year F/U Electronically signed by: Jayla Kiran DO 02/04/2025 02:38 PM EST Addendum Dictated By: Jayla Kiran DO Addendum Signed By: <Electronically signed by Jayla Kiran DO in OV> 02/04/25 1438 Addendum Cosigned By: DD/ TD/TT: 01/22/25 EXAMINATION: MM SCREENING DIGITAL BREAST TOMOSYNTHESIS, BILATERAL CLINICAL INFORMATION: Screening. Asymptomatic. COMPARISON: Mammography: Comparison is made with available priors TECHNIQUE: Digital breast mammography with tomosynthesis is performed in both the craniocaudal and mediolateral oblique views along with computer-aided detection (CAD). FINDINGS: There are scattered areas of fibroglandular density. There are no significant masses, abnormal calcifications, or other abnormalities. MM/MM tomosynthesis screening BI IMPRESSION: No mammographic evidence of malignancy. ASSESSMENT: BI-RADS Category 1: Negative RECOMMENDATION: Routine annual mammography screening. 1 year F/U This examination should not preclude the clinical evaluation of a suspicious palpable abnormality. This patient's information was entered into a reminder system with a target due date for their next mammogram. Electronically signed by: Jayla Kiran DO 01/22/2025 03:51 PM EDT RP Dictated By: Jayla Kiran DO Signed By: <Electronically signed by Jayla Kiran DO in OV> 01/22/25 1551 DD/ 0851 TD/TT: 01/22/[address] Commander: Procedure Note Donotuseinterpreter, Image - 02/04/2025 [facility] [address] [place] [address] Mammography Report Signed with Addenda Patient: Ab Medeiros#: [id number] : 1985Acct:[id number] Age/Sex: 39 / FADM Date: 01/22/25 Loc: DONNA.MAMMO Attending Dr: Shanita King MD Ordering Physician: Shanita King MDResults: 1Negative Date of Service: 01/22/25Follow Up: 1 Year From Orig inal Mammogram Procedure(s): MM tomosynthesis screening BI Accession Number(s): [id number] cc: Shanita King MD Reason For Exam: breast cancer screening ADDENDUM ADDENDUM #1 ADDENDUM: Due to a software issue this mammogram was reviewed a second time. The findings and recommendations remain the same. OVERALL ASSESSMENT: Category 1: Negative RECOMMENDATION: 1 year F/U Electronically signed by: Jayla Kiran DO 02/04/2025 02:38 PM EST RP Addendum Dictated By: Jayla Kiran DO Addendum Signed By: <Electronically signed by DO Lia in OV> 02/04/25 1438 Addendum Cosigned By: DD/ TD/TT: 01/22/25 EXAMINATION: MM SCREENING DIGITAL BREAST TOMOSYNTHESIS, BILATERAL CLINICAL INFORMATION: Screening. Asymptomatic. COMPARISON: Mammography: Comparison is made with available priors TECHNIQUE: Digital breast mammography with tomosynthesis is performed in both the craniocaudal and mediolateral oblique views along with computer-aided detection (CAD). FINDINGS: There are scattered areas of fibroglandular density. There are no significant masses, abnormal calcifications, or other abnormalities. MM/MM tomosynthesis screening BI IMPRESSION: No mammographic evidence of malignancy. ASSESSMENT: BI-RADS Category 1: Negative RECOMMENDATION: Routine annual mammography screening. 1 year F/U This examination should not preclude the clinical evaluation of a suspicious palpable abnormality. This patient's information was entered into a reminder system with a target due date for their next mammogram. Electronically signed by: Jayla Kiran DO 01/22/2025 03:51 PM EDT RP Dictated By: Jayla Kiran DO Signed By: <Electronically signed by Jayla Kiran DO in OV> 01/22/25 1551 DD/ 0 TD/TT: 01/22/25912 Highway Patrol Commander: Shanita King MD IMG BI PROCEDURES Edited Result - Final * Hepatitis C Antibody with Reflex to HCV, RNA, Quantitative, Real-Time PCR (10/18/2023 3:04 PM EDT) Hepatitis C Antibody Nonreactive Nonreactive [facility] Comment:Antibodies to HCV no t detected; does not exclude early acuteHCV infection. Blood Venous blood specimen / Unknown 10/18/2023 3:04 PM EDT 10/18/2023 3:56 PM EDT us Mauro Maher MD LAB BLOOD ORDERABLES Final Res ult [facility] [address] [place] [phone] * HIV-1/2 Antigen and Antibodies, Fourth Generation, with Reflexes (10/18/2023 3:04 PM EDT) HIV AB/AG Nonreactive Nonreactive [facility] Comment:HIV-1 p24 Ag and/or HIV-1/HIV-2 Ab not detected.A test result that is nonreactive does not exclude thepossibility of exposure to or infection with HIV-1 and/orHIV-2. Nonreactive results in this assay for individualswith prior exposure to HIV-1 and/or HIV-2 may be due toantigen and antibody levels that are below the limit ofdetection of this assay.The Sirigen HIV Ag/Ab Combo assay result andsupplemental assay results should be interpreted inconjunction with the patient's clinical presentation,history and other laboratory results. If the results areinconsistent with clinical evidence, additional testing issuggested to confirm the result. Blood Venous blood specimen / Unknown 10/18/2023 3:04 PM EDT 10/18/2023 3:56 PM EDT Mauro Maher MD LAB BLOOD ORDERABLES Final Res ult [facility] [address] [place] [address] [phone] * Hm Pap Smear (01/25/2023) Pap Negative for intraephithelial lesion or malignancy Negative for intraephithelial lesion or malignancy, Other HPV Undetected Undetected, Indeterminate, Quantitative, Not Detected [facility] Provider HEALTH MAINTENANCE Final Result from Last 3 Months or Most Recently Relevant to Health Maintenance Insurance [facility] STAND ADULT Care Teams Database Administrator Relationship Specialty Start Date End Date Shanita King MD [address] [place] [address] PCP - General Family Medicine 10/09/20 Logan Morfin FNP [address] [place] [address] Nurse Practitioner Family Medicine 02/21/23
--- OUTSIDE RECORDS SUMMARY | 2025-03-21 19:52 | XMS_ITS | Encounter Summary ---
Author Organization [employer] Address [address] [place] [address] Care Team Providers Care Dermatology Physician Assistant Name Role Phone Shanita King MD Primary Care Provider [phone] Logan Morfin Unavailable Unavailable Reason for Visit * Reason Onset Date Comments Appointment Request 12/29/2023 Encounter Details Date Type Department Care Team ([facility] st Contact Info) Description 12/29/2023 Telephone [facility] [address] [place] [address] Shanita King MD [address] [place] [address] Appointment Request Social History Tobacco Use Types [...] Description 04/02/2025 10:30 AM EST Office Visit [facility] [address] [place] [phone] Gustavo Vasques MD [address] [place] [address] 05/22/2025 3:30 PM EST Office Visit [facility] [address] [place] [phone] Jazmine Quan CNM [address] [place] [address] documented as of this encounter Visit Diagnoses Not on filedocumented in this encounter Additional Health Concerns Assessment Noted Time PHQ-9 Depression Total Score: 11 11/24/2 024 10:16 AM EDT documented as of this encounter Care Teams Dermatology Physician Assistant Relationship Specialty Start Date End Date Shanita King MD [address] [place] [address] PCP - General Family Medicine 10/09/20 Logan Morfin FNP [address] [place] [address] Nurse Practitioner Family Medicine 02/21/23 documented as of this encounter
--- OUTSIDE RECORDS SUMMARY | 2025-03-21 19:52 | XMS_ITS | Encounter Summary ---
Author Organization [employer] Address [address] [place] [address] Care Team Providers Care Paralegal Legal Secretary Name Role Phone Shanita King MD Primary Care Provider [phone] Logan Morfin Unavailable Unavailable Reason for Visit * Reason Onset Date Comments Dental Pain 06/23/2022 Encounter Details Date Type Department Care Team (Late st Contact Info) Description 06/23/2022 Telephone [facility] [address] [place] [address] Silvio Coronel DDS [address] [place] [address] Dental Pain Social History Tobacco Use Types [...] patient to contact office after 6pm where personal coach Can be reached or if pain was unbearable and they felt they need to go to ER they have that option as well. Patient understood but is looking for what to do. documented in this encounter Plan of Treatment Upcoming Encounters Date Type Department Care Team (Late st Contact Info) Description 04/02/2025 10:30 AM EST Office Visit [facility] [address] [place] [phone] Gustavo Vasques MD [address] [place] [phone] 05/22/2025 3:30 PM EST Office Visit [facility] [address] [place] [address] Jazmine Quan CNM [address] [place] [address] documented as of this encounter Visit Diagnoses Not on filedocumented in this encounter Additional Health Concerns Assessment Noted Time PHQ-9 Depression Total Score: 9 06/23/19 11:10 AM EDT documented as of this encounter Care Teams Paralegal Legal Secretary Relationship Specialty Start Date End Date Shanita King MD [address] [place] [phone] PCP - General Family Medicine 10/09/20 Logan Morfin FNP [address] [place] [phone] Nurse Practitioner Family Medicine 02/21/23 documented as of this encounter
--- OUTSIDE RECORDS SUMMARY | 2025-03-21 19:52 | XMS_ITS | Encounter Summary ---
Author Organization [employer] Address [address] [place] [address] Care Team Providers Care Agricultural Research Technologist Name Role Phone Shanita King MD Primary Care Provider [phone] Logan Mrofin Unavailable Unavailable Reason for Visit * Reason Onset Date Comments Appointment Request 03/08/2025 Encounter Details Date Type Department Care Team ([facility] st Contact Info) Description 03/08/2025 Telephone [facility] MED[facility]INE [address] [place] [address] Shanita King MD [address] [place] [address] Appointment Request Social History Tobacco Use Types [...] encounter Miscellaneous Notes * Telephone Encounter - Gi Castro - 03/08/2025 2:52 PM EST Tc from pt requesting to reschedule derm apt Contact pt at [phone] documented in this encounter Plan of Treatment Upcoming Encounters Date Type Department Care Team (Late st Contact Info) Description 04/02/2025 10:30 AM EST Office Visit [facility] MEDICINE [address] [place] [phone] Gustavo Vasques MD [address] [place] [address] 05/22/2025 3:30 PM EST Office Visit [facility] MED[facility]INE [address] [place] [address] [phone] Jazmine Quan CNM [address] [place] [address] documented as of this encounter Visit Diagnoses Not on filedocumented in this encounter Additional Health Concerns Assessment Noted Time PHQ-9 Depression Total Score: 15 12/24/ 025 3:36 PM EDT documented as of this encounter Care Teams Agricultural Research Technologist Relationship Specialty Start Date End Date Shanita King MD [address] [place] [phone] PCP - General Family Medicine 10/09/20 Logan Morfin FNP [address] [place] [phone] Nurse Practitioner Family Medicine 02/21/23 documented as of this encounter
--- OUTSIDE RECORDS SUMMARY | 2025-03-21 19:52 | XMS_ITS | Encounter Summary ---
Author Organization [employer] Address [address] [place] [address] Care Team Providers Care News Copy Editor Name Role Phone Shanita King MD Primary Care Provider [phone] Logan Morfin Unavailable Unavailable Reason for Visit * Reason Onset Date Comments Med Refill Appointment 08/24/2022 Unable to LVM-Re : her appt for today as [id number] @ 10am. Encounter Details Date Type Department Care Team (Late st Contact Info) Description 08/24/2022 Refill [facility] [address] [place] [address] Mauro Maher MD [address] [place] [address] Alcohol dependence, uncomplicated (CMS/HCC) Social History Tobacco [...] 08/26/2022 9:51 AM Akila Knowles MA * How difficult have these problems made it for you to do your work, take care of things at home, or get along with other people? Answer Date of Assessment Author Not difficult at all 08/26/2022 9:51 AM Jenny Drake MA * Over the past 2 weeks, [...] Description 04/02/2025 10:30 AM EST Office Visit [facility] [address] [place] [phone] Gustavo Vasques MD [address] [place] [address] 05/22/2025 3:30 PM EST Office Visit [facility] [address] [place] [phone] Jazmine Quan CNM [address] [place] [address] documented as of this encounter Visit Diagnoses Diagnosis Alcohol dependence, uncomplicated (CMS/HCC) (HCC) documented in this encounter Additional Health Concerns Assessment Noted Time PHQ-9 Depression Total Score: 5 07/30/19 23 8:55 AM EDT documented as of this encounter Care Teams News Copy Editor Relationship Specialty Start Date End Date Shanita King MD [address] [place] [phone] PCP - General Family Medicine 10/09/20 Logan Morfin FNP [address] [place] [phone] Nurse Practitioner Family Medicine 02/21/23 documented as of this encounter
[2025-03-21 21:24] LABS: CT PCR NOT DETECTED (Not Detect.); NG PCR NOT DETECTED (Not Detect.)
== END 2025-03-21 18:06 | disposition home or self-care (01) ==
LOC: HO.HHCLNP 18:05
PROVIDERS: Visit Provider Advanced Practice Midwife
DX: Z20.2 Contact with and (suspected) exposure to infections with a predominantly sexual mode of transmission (principal)
CPT/HCPCS: 87491; 87591; 87661